=== PATIENT | male | born 1950 | race Caucasian/White ===

== ENCOUNTER 2016-12-07 00:46 | Inpatient (IN) ==
[2016-12-07] MEDS ORDERED: Ondansetron 4 MG/2 ML VIAL IVP PRN (03:44)
[2016-12-07] MEDS ORDERED: Naloxone 0.4 MG/ML INJ IVP PRN (03:44)
[2016-12-07] MEDS ORDERED: Nitroglycerin 0.4 MG TAB.SUBL SL PRN (03:47)
[2016-12-07] MEDS ORDERED: D5% in Water 1,000 ML IVC PRN ×2 (03:52→16:29)
[2016-12-07] MEDS ORDERED: *HR* Dextrose 50 % in Water (Syg) 50 ML SYRINGE IVP PRN (03:52)
[2016-12-07] MEDS ORDERED: Dextrose Gel 15 GM PO PRN ×2 (03:52)
--- NOTE | 2016-12-07 03:56 | Internal Med History&Physical ---
Date of Encounter: 12/07/16 Time of Encounter: 03:54 Assessment and Plan (1) Non-STEMI (non-ST elevated myocardial infarction) Current visit: Yes Status: Acute Aspirin, nitroglycerin, heparin drip, start metoprolol and Lipitor Check lipid panel, monitor troponins, telemetry Cartilage a consult to consider cardiac catheterization Nothing by mouth Check EKG and chest x-ray IV fluids Protonix IV for GI prophylaxis and heparin drip for DVT prophylaxis. She will be admitted as inpatient, expected to stay more than 2 midnights. Full code. Time spent on this admission 40 minutes. 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 Medina is a 65 year old male with a past medical history of CAD status post stents, hypertension, diabetes [id number], who was transferred from [facility] complaining of midsternal burning that started intermittently 2 days ago. Patient said that discomfort was described as 9 out of 10 in intensity which was worse upon exertion, improved after receiving nitroglycerin in/drip aspirin and Protonix. He does complain of some dizziness and headaches as well. Was started on a heparin drip as his troponin was 1.18. EKG is not available in the paperwork that was sent. At the moment the patient is not complaining of any discomfort, denies any other symptoms Past Med Surg Social Fam HX - Past Medical History Medical history: coronary artery disease (Status post stents), diabetes (Not oxygen dependent), hypertension, myocardial infarction, other Psychiatric history: anxiety, depression - Past Surgical History Surgical History: other (Cervical fusion, spine surgery, cardiac catheterization ) - Social History Smoking Status: Never smoker Smokeless Tobacco Status: Yes (skoal occasionally) Alcohol use: none Drug use: none - Family History Mother Name: Ashley Living Status: Age at : 90 Hx Family Endocrine Disorder: Yes (Diabetes) Father Age at : 93 Cause of : Prostate CA - Additional Family History Additional family history: Father with prostate cancer Internal Medicine - H&P: Meds Calcium Carbonate/Vitamin D3 [Calcium 600-Vit D3 800 Tab] 1 tab PO DAILY [History] Ibuprofen 800 mg PO Q8H PRN 12/07/16 [History] Lisinopril [Zestril] 5 mg PO DAILY 12/07/16 [History] metFORMIN [Glucophage] 1,000 mg PO BIDWM 12/07/16 [History] Allergies albuterol Adverse Reaction (Verified 08/13/16 20:42) See Comments All Systems PM: A 10-system review of systems was performed and is negative for pertinent findings except as documented above in the HPI. Review of systems: Other systems out of the 10 reviewed were negative - Constitutional Vitals: Temp Pulse Resp BP Pulse Ox 98.3 F 82 16 138/90 96 12/07/16 01:49 12/07/16 01:49 12/07/16 01:49 12/07/16 01:49 12/07/16 01:49 General appearance: Present: A&O X 3 - Head Head exam: Present: atraumatic, normocephalic - Eye Eye exam: Present: PERRL, conjuntiva pink, sclera anicteric Pupils: Present: PERRL - Neck Neck exam general surgery: Present: supple, trachea midline. Absent: lymphadenopathy - Respiratory Respiratory exam: Present: CTAB. Absent: accessory muscle use, rales, rhonchi, wheezes - Cardiovascular Cardiovascular exam: Present: RRR, +S1, +S2. Absent: diastolic murmur, gallop, rubs, systolic murmur - GI/Abdominal GI/Abdominal exam: Present: normal bowel sounds, soft, no peritoneal signs. Absent: distended, tenderness - Extremities Exam Extremities exam: Present: warm, radial pulses palpable and symetrical. Absent : calf tenderness, cyanotic, pedal edema - Neurological Exam Neurological exam: Present: CN II-XII intact, oriented X3, no focal deficits. Absent: pronater drift, facial droop, speech deficit - Skin Skin exam: Present: dry, intact Internal Med - H&P Results - Labs Labs: White blood cell count 8.3 hemoglobin 15.3 platelets 286 sodium 138 potassium 3.9 chloride 100 CO2 28 BUN 8 creatinine 0.8 glucose 259 troponin 1.18 INR 1.04
[2016-12-07 04:53] LABS: Basophils % 0.4 %; Eosinophils # 0.2 K/mcL (0.0-0.6); Eosinophils % 2.3 %; Hematocrit 37.5 % (37.5-50.1); Hemoglobin 13.3 g/dL (12.9-16.9); Immature Granulocytes % 0.3 % (0-4); Lymphocytes % 29.7 %; Mean Corpuscular HGB Conc 35.5 g/dL (31.6-35.5); Mean Corpuscular Hemoglobin 30.8 pg (28.0-33.3); Mean Corpuscular Volume 86.8 fL (83.0-100.0); Mean Platelet Volume 9.3 fL (9.4-12.4); Monocytes # 0.8 K/mcL (0.0-1.3); Monocytes % 11.5 %; Neutrophils # 3.8 K/mcL (1.6-8.9); Platelet Count 226 K/mcL (140-400); Red Blood Count 4.32 M/mcL (4.19-5.50); Segmented Neutrophils % 55.8 %
[2016-12-07 05:00] LABS: INR 1.2
[2016-12-07 05:03] LABS: Activated Partial Thrombo Time 32.5 Seconds (26.0-36.0)
[2016-12-07 05:20] LABS: BUN/Creatinine Ratio 13 (6-26); Blood Urea Nitrogen 10 mg/dL (8-26); Calcium 8.9 mg/dL (8.6-10.8); Carbon Dioxide 25 mEq/L (19-29); Chloride 100 mEq/L (98-109); Chol/HDL Ratio 6.9 (0-4.9); Cholesterol 144 mg/dL (< 200); Glucose 216 mg/dL (70-99); HDL Cholesterol 21 mg/dL (40-59); LDL Cholesterol,Calculated 97 mg/dL (0-99); Osmolality,Calculated 286 (280-300); Potassium 3.3 mEq/L (3.5-4.5); Sodium 135 mEq/L (136-145); Triglycerides 128 mg/dL (< 150); eGFR For African Americans > 60 (> 60); eGFR For Non-African Americans > 60 (> 60)
[2016-12-07] MEDS ORDERED: Nitroglycerin 1,000 MCG/10 ML VIAL IV SCH (06:15)
[2016-12-07] MEDS: Heparin 25,000 UNIT/500 ML D5W 25,000 UNIT/500 ML MLS IVC SCH (06:41)
[2016-12-07] MEDS: *HR* Heparin 5,000 UNIT/ML VIAL IVP PRN ×2 (07:35→19:59)
[2016-12-07] MEDS: 0.9 % Sodium Chloride 1,000 ML IVC SCH (07:38)
--- NOTE | 2016-12-07 08:43 | Cardiology Consult Note ---
Date of Encounter: 12/07/16 Time of Encounter: 08:00 Assessment and Plan (1) Non-STEMI (non-ST elevated myocardial infarction) Current Visit: Yes Status: Acute Initial troponin 1.18 at [facility], now 2.50. Non-specific ECG changes noted; he is pain free upon exam. Hx of CAD s/p PCI, most recent in 2011. Recommend [facility] with possible PCI; alternatives, risks, and benefits discussed. He is agreeable to proceed. Check echocardiogram. Given 324 mg ASA at [facility], started on Heparin gtt. Nitroglycerin on standby. Continue statin and betablocker. Will decrease asa to 81 mg. Further recommendations to follow. (2) Hypertension Current Visit: Yes Status: Chronic Betablocker added this AM, continue to monitor BP and adjust medications accordingly. Qualifiers: Hypertension type: essential hypertension Qualified Code(s): I10 - Essential (primary) hypertension (3) Hyperlipidemia Current Visit: Yes Status: Chronic Agree with statin; risk factor modification. Qualifiers: Hyperlipidemia type: pure hypercholesterolemia Qualified Code(s): E78.00 - Pure hypercholesterolemia, unspecified; E78.0 - Pure hypercholesterolemia Discussion w patient/family: The assessment and plan as outlined above was discussed with the patient and/or family members who expressed understanding and agreement. All questions were answered. Thank you for involving us in the care of your patient. Please call with any questions. The patient will be discussed and reviewed with Dr. Escobar; changes to be made accordingly. History of Present Illness Consult date: 12/07/16 Requesting physician: Meek Segovia Consult reason: NSTEMI Chief complaint: Chest pain History of present illness: Mr. Medina is a 65 year old male with PMH significant for CAD s/p PCI, HTN, HLD, and DMII who presented to [facility] ED yesterday evening around 10PM due to worsening chest burning. Patient states pain is non-radiating has been "steady" over the past week. Discomfort worsens with exertion/stress and improves with rest. Associated symptoms include dizziness, shortness of breath, and fatigue. Discomfort is different than prior LA. Initial troponin at [facility] ED was 1.18, he was then transferred to [facility]. He has not followed up with Cardiology in years. Prior CV testing includes: TTE 10/10/11: LVEF 65%, RV is moderately dilated with normal function, trivial /trace TR, all wall segments showed normal motion [facility] 10/10/11: severe single vessel CAD s/p PCI to ISR of ramus intermedius; otherwise mild, non-obstructive CAD. 30-40% stenosis pLAD, 30% pLCX, 40% pRCA. Past Med Surg Social Fam HX - Past Medical History Attestation: Yes The following information was validated with the patient. Source: patient, old records reviewed Medical history: coronary artery disease (Status post stents), diabetes (Not oxygen dependent), hyperlipidemia, hypertension, myocardial infarction Psychiatric history: anxiety, depression - Past Surgical History Surgical History: angioplasty/stent, other (Cervical fusion, spine surgery, cardiac catheterization) - Social History Smoking Status: Never smoker Smokeless Tobacco Status: Yes (skoal occasionally) Alcohol use: rarely Drug use: none - Family History Mother Name: Ashley Living Status: Age at : 90 Hx Family Endocrine Disorder: Yes (Diabetes) Father Age at : 93 Cause of : Prostate CA Medications and Allergies Calcium Carbonate/Vitamin D3 [Calcium 600-Vit D3 800 Tab] 1 tab PO DAILY [History] Duloxetine HCl [Cymbalta] 60 mg PO DAILY 12/07/16 [History] Ibuprofen 800 mg PO Q8H PRN 12/07/16 [History] Lisinopril [Zestril] 5 mg PO DAILY 12/07/16 [History] metFORMIN [Glucophage] 1,000 mg PO BIDWM 12/07/16 [History] Allergies albuterol Adverse Reaction (Verified 12/07/16 09:13) See Comments HIVES, SWELLING All Systems Review: A 10-system review of systems was performed and is negative for pertinent findings except as documented above in the HPI. - Cardiovascular Cardiovascular: as per HPI Physical Examination Vital Signs, Last 4 Hours Temp Pulse Resp BP 12/07/16 07:30 98.4 F 78 16 131/82 General: Conversant, No Apparent Distress HEENT: Atraumatic, Normocephaly, Mucus Membranes Moist Cardiac: Reg Rate and Rhythm, Normal S1 and S2 Lungs: Normal Breath Sounds, No Wheeze, Rales, Rhonchi Neuro: Alert and responsive, No focal deficits noted Abdomen: Soft, Non-Tender Skin: No rashes noted on visualized skin Musculoskeletal: No Chest Wall Tenderness Extremities: No Edema, Normal Pulses Results 12/07/16 04:27 12/07/16 04:27 Lab Results 12/07/16 12/07/16 12/07/16 04:27 04:27 04:27 WBC Hgb Hct Plt Count INR 1.2 APTT 32.5 Sodium 135 L Potassium 3.3 L Chloride 100 Carbon Dioxide 25 BUN 10 Creatinine 0.78 Glucose 216 H Calcium 8.9 Troponin I 2.50 H* 12/07/16 04:27 WBC 6.9 Hgb 13.3 Hct 37.5 Plt Count 226 INR APTT Sodium Potassium Chloride Carbon Dioxide BUN Creatinine Glucose Calcium Troponin I - Imaging and Cardiology Echo: pending, report reviewed Cardiac cath: report reviewed Other Results: tele: avg HR=82 SR, occasional PVC. - EKG Interpretation EKG results cardiology: personally reviewed Consult Discharge Plan - Plan Referrals: Declan Vick DO [Primary Care Provider] -
[2016-12-07] MEDS ORDERED: Pantoprazole 40 MG VIAL IVP SCH (09:00)
[2016-12-07] MEDS ORDERED: Aspirin 325 MG TABLET PO SCH (09:00)
--- NOTE | 2016-12-07 09:39 | Event Note ---
<Jack Lopez - Last Filed: 12/07/16 09:36> Date of Encounter: 12/07/16 Time of Encounter: 09:36 Patient seen and examined. Patient is chest pain-free at this time. Report burning in his chest prior to arrival which is similar to the discomfort he had the last time he had a stent placed. Denies any current shortness of breath, diaphoresis, nausea, vomiting, or shortness swelling. Vital signs stable Heart regular rate and rhythm, no murmurs, rubs, gallops Lungs clear to auscultation bilaterally No lower extremity edema appreciated. A/P: NSTEMI: Troponin elevated and rising, was 1.2 at outside hospital, increased to 2.5 this morning. EKG shows nonspecific ST changes, no clear sign of ischemia. Patient is chest pain-free at this time. Nitro drip has been discontinued. Heparin drip will be continued. Aspirin, statin, beta brando continued. Cardiology consult, likely C today. Hypokalemia: Replete via IV Potassium. <Dawson Gao - Last Filed: 12/07/16 18:59> Date of Encounter: 12/07/16 Pt admitted early this AM with acute NSTEMI. At this time he is pain free. Plan for cath per cardiology.
[2016-12-07] MEDS: Aspirin 81 MG TAB.CHEW PO SCH (09:55)
[2016-12-07] MEDS: Insulin LISPRO 300 UNITS/3 ML VIAL SQ SCH ×4 (09:55→20:05)
[2016-12-07] MEDS ORDERED: Heparin 1,000 UNITS/500 mL NS 500 ML ONE (12:54)
[2016-12-07] MEDS ORDERED: 0.9 % Sodium Chloride 1,000 ML ONE ×2 (12:54→13:35)
[2016-12-07] MEDS ORDERED: Nitroglycerin 1,000 MCG/10 ML VIAL IV ONE (12:55)
[2016-12-07] MEDS ORDERED: *HR* Heparin 10,000 UNIT/10 ML VIAL ONE (12:55)
--- NOTE | 2016-12-07 13:22 | Pre-Sedation Evaluation ---
Pre-sedation evaluation - Pre-sedation checklist Date of procedure: 12/07/16 Procedure: [place] Recent Vitals: Last Vital Signs Temp 98.6 F 12/07/16 11:21 Pulse 69 12/07/16 11:21 Resp 16 12/07/16 11:21 BP 121/75 12/07/16 11:21 Pulse Ox 90 12/07/16 04:00 H&P (including ROS) documented in medical record: Yes Previous reaction to sedatives/anesthetics: No Dietary Status: NPO after Midnight Airway Assessment: Patient can open mouth completely, TMJ function normal, Micrognathia (under-bite, receding chin) absent, Neck with adequate range of motion Dentition: No loose teeth or bridges Possible difficult airway: No ASA Classification *see protocol: CLASS II-Mild systemic disease Plan of Care: Pt appropriate candidate for procedure/moderate/conscious sedation , Risks/benefits of procedure/sedation discussed w/ patient/family
[2016-12-07] MEDS ORDERED: *HR* Midazolam HCl 2 MG/2 ML VIAL ONE (13:34)
[2016-12-07] MEDS ORDERED: *HR* FentaNYL (PF) 100 MCG/2 ML VIAL ONE (13:35)
--- NOTE | 2016-12-07 14:30 | Cardiothoracic Consult Note ---
Date of Encounter: 12/07/16 Time of Encounter: 14:26 Assessment and Plan (1) Non-STEMI (non-ST elevated myocardial infarction) Current Visit: Yes Status: Acute The patient is a 65-year-old type II diabetic, hypertensive man with known CAD and hypercholesterolemia. He is undergone previous ramus stent placement and did well until approximately 1 week ago. That time he developed vague, exertional, nonradiating substernal chest pain and associated shortness of breath, dyspnea exertion, dizziness, fatigue. The patient was evaluated at [facility] last night and found to have elevated troponin I levels consistent with an acute NSTEMI. He underwent cardiac catheterization today was found to have severe 3 vessel CAD and an LVEF 60%. The patient has been recommended for CABG. I concur with this recommendation. The patient understands procedure, benefits, alternatives, and risk, and gives his informed consent. Dr. Giovany Kingston will be performing the CABG next week. The assessment and plan as outlined above was discussed with the patient and/or family members who expressed understanding and agreement. All questions were answered. - History of Present Illness Consult date: 12/07/16 Requesting physician: Kerri Machado Consult reason: CABG evaluation. Chief complaint: NSTEMI History of present illness: Mr. Medina is a 65 year old type II diabetic, hypertensive man with known CAD and hypercholesterolemia. The patient underwent previous ramus stent placement in 2011 and did well until the last several months. At that time he began feeling fatigue. During the last week he developed vague, nonradiating substernal chest pain associated shortness of breath, dyspnea on exertion, dizziness, and fatigue. The chest pain would worsen with activity and resolve somewhat with rest. He describes the pain as different than the pain he had with his previous HI. He was evaluated at [facility] last night and found to have elevated troponin I levels consistent with an acute NSTEMI he was treated medically and transferred [facility] for further care. The patient underwent a transthoracic echocardiogram this morning which was reportedly normal. The spoke with the manager printing and he quickly read the study , stating that he had normal left ventricular function and normal right ventricular size and function with mild pulmonary hypertension. The official report will follow. The patient underwent cardiac catheterization was found to have severe three-vessel CAD. In particular the patient has a 40% distal left main lesion, a 99% proximal LAD lesion, a 70% mid to distal LAD lesion, a 99% ramus in-stent restenosis, a 90% proximal OM1 lesion, a 40% mid RCA lesion, and a 99% mid to distal right AV lesion (small vessel). The patient has been recommended for CABG. Past Med Surg Social Fam HX - Past Medical History Medical history: coronary artery disease, diabetes (Not oxygen dependent), hyperlipidemia, hypertension, myocardial infarction Psychiatric history: anxiety, depression - Past Surgical History Surgical History: angioplasty/stent, other (Cervical fusion) - Social History Smoking Status: Never smoker Smokeless Tobacco Status: Yes (skoal occasionally) Alcohol use: rarely Drug use: none Occupational status: retired Current living situation: Home - Independent Activity Level: Independent ambulation Recent Out of Country Travel Within the Last 8 Weeks: No Exposure or Possible Exposure to Illness During Travel: No - Family History Mother Name: Ashley Living Status: Age at : 90 Hx Family Endocrine Disorder: Yes (Diabetes) Father Age at : 93 Cause of : Prostate CA Medications and Allergies Calcium Carbonate/Vitamin D3 [Calcium 600-Vit D3 800 Tab] 1 tab PO DAILY [History] Duloxetine HCl [Cymbalta] 60 mg PO DAILY 12/07/16 [History] Ibuprofen 800 mg PO Q8H PRN 12/07/16 [History] Lisinopril [Zestril] 5 mg PO DAILY 12/07/16 [History] metFORMIN [Glucophage] 1,000 mg PO BIDWM 12/07/16 [History] Allergies albuterol Adverse Reaction (Verified 12/07/16 09:13) See Comments HIVES, SWELLING All Systems Review: A 10-system review of systems was performed and is negative for pertinent findings except as documented above in the HPI. Physical Examination Vital Signs, Last 4 Hours Temp Pulse Resp BP 12/07/16 11:21 98.6 F 69 16 121/75 General: Conversant, No Apparent Distress HEENT: Atraumatic, Normocephaly, Trachea midline Neck: No JVD, Normal carotid pulses Cardiac: Reg Rate and Rhythm, Normal S1 and S2, No Murmur Lungs: Normal Breath Sounds, No Wheeze, Rales, Rhonchi Neuro: Alert and responsive, No focal deficits noted, Motor nerves intact, Sensory nerves intact Vascular: Normal capillary refill Abdomen: Soft, Non-tender Skin: No rashes noted on visualized skin Musculoskeletal: No Chest Wall Tenderness Extremities: No Clubbing, No Cyanosis, No Edema Results 12/07/16 04:27 12/07/16 04:27 Lab Results, Last 24 hours 12/07/16 12/07/16 12/07/16 04:27 04:27 04:27 WBC Hgb Hct Plt Count INR 1.2 APTT 32.5 Sodium 135 L Potassium 3.3 L Chloride 100 Carbon Dioxide 25 BUN 10 Creatinine 0.78 Glucose 216 H Calcium 8.9 Troponin I 2.50 H* 12/07/16 12/07/16 04:27 09:50 WBC 6.9 Hgb 13.3 Hct 37.5 Plt Count 226 INR APTT Sodium Potassium Chloride Carbon Dioxide BUN Creatinine Glucose Calcium Troponin I 2.22 H* - Imaging Chest Xray: image reviewed (Normal cardiac size. No active pulmonary disease.) Consult Discharge Plan - Plan Referrals: Declan Vick DO [Primary Care Provider] -
--- NOTE | 2016-12-07 14:36 | Invasive Diagnostic Lab Proc ---
Name: Rogelio Medina Date of Study: 12/07/2016 Date: 1950 Ht: 66.9in Medical Record#: [id number] Age: 65 Wt: 184.09lb Gender: Male BSA: 1.95 Order #: [id number] BMI: 28.89 Physicians Procedure Physician: Kerri Machado MD, [facility] Referring MD: Referring MD: Staff Name Position Time In Gricelda Wilkinson RN Retail Merchandiser 01:31 PM Juan Antonio Calixto RT (R) Monitor 01:31 PM Paige Calixto RT (R) Scrub 01:31 PM Indications Indication Non-Stemi Procedures Performed Procedure L HRT ARTERY/VENTRICLE ANGIO Pre-Procedure Checklist Informed consent is complete signed and on chart. H\\T\\P is on chart. ID band is on and ID verified with patient. Patient NPO for procedure The procedure was described for the patient and questions were answered. Blood Pressure: 121/75 ECG is on chart. Rhythm: NSR Plan of Care Patient will tolerate the procedure without complications. Adequate level of comfort will be maintained. Hemodynamics will remain stable Patient will recover from procedure without complications. Respiratory function will be maintained. Cardiac rhythm will remain stable. Patient temperature will be maintained. Patient and/or family have verbalized understanding of the procedure. Patient Education Chief Complaint/Reason for Test: Cardiac Cath Developmental Category: Adult (18-64 years) Developmentally Appropriate for Age: Yes Learning Barriers: None Education Needs: Procedure Education Method: Verbal Information Taught: Cardiac Cath Educational Evaluation: Able to repeat information Intravenous Access Time IV Size Location DC'd Fluid/Drip Rate Units RN 01:42 PM 20g 1 07/04" Patent On Arrival Lt Arm 0.9NaCl 25 ml/hr Gricelda Wilkinson RN Allergies albuterol Vital Signs Time BP (mmHg) HR (bpm) O2 Sat. RR (bpm) LOC 01:32 PM 121 / 75 69 90 % 16 01:32 PM / % 4 = Oriented but drowsy 01:47 PM / % 4 = Oriented but drowsy 01:40 PM 120 / 62 62 96 % 01:45 PM 103 / 58 63 97 % 15 01:50 PM 110 / 67 65 99 % 12 01:55 PM 105 / 57 62 99 % 13 02:00 PM 106 / 67 78 99 % 4 02:05 PM 114 / 69 75 99 % 21 02:10 PM 122 / 66 68 99 % 16 02:15 PM 109 / 66 68 99 % 0 02:02 PM / % 4 = Oriented but drowsy Procedural Medications Time Medication Dose Units Method Given By 01:41 PM Versed 2 mg Intravenous Gricelda Wilkinson RN 01:41 PM Fentanyl 50 mcg Intravenous Gricelda Wilkinson RN 01:53 PM Lidocaine 2% 12 ml Subcutaneous Kerri Machado MD, [facility] ASA Classification: CLASS II- Mild systemic disease (i.e. well-controlled diabetes, hypertension, asthma, cigarette smoking) [place] Score Preprocedure Postprocedure Activity 2- Moves 4 extremities sustained head lift Activity 2- Moves 4 extremities sustained head lift Circulation 2- SBP +/= 20 points of pre-anesthetic level Circulation 2- SBP +/= 20 points of pre-anesthetic level Consciousness 2- Awake and alert oriented x 3 Consciousness 2- Awake and alert oriented x 3 O2 Saturation 2- Able to maintain O2 satruation of 92% on room air O2 Saturation 2- Able to maintain O2 satruation of 92% on room air Respiratory 2- Able to deep breathe and cough well Respiratory 2- Able to deep breathe and cough well Total Score 10 Total Score 10 Contrast Agent: Isovue Diagnostic Contrast: 68 ml Total Contrast: 68 ml Fluoro Dose: 240 mGy Procedure Log Time Note Enter By 01:31 PM Pt arrived to slab stripper 2 at 13:31 :31 PM Gricelda Wilkinson RN Position: Retail Merchandiser Time in: 13:31 :31 PM Juan Antonio Calixto RT (R) Position: Monitor Time in: 13:31 :31 PM Paige Calixto RT (R) Position: Scrub Time in: 13:31 :31 PM Patient charges- Angio tray pack, Navilyst 3mm J, Pulse Oximetry and ACIST tubing and transducer :32 PM Case Delayed No :32 PM Time: 13:32 Patient comfortable and pain free: Yes :32 PM Time: 13:32LOC: 5 = Fully awake and oriented or at pre-proc level 01:32 PM CathStat 01:33 PM Physician arrived 13:33 :33 PM ASA Class CLASS II- Mild systemic disease (i.e. well-controlled diabetes, hypertension, asthma, cigarette smoking) [email or web address] 01:33 PM Meet and greet completed [email or web address] 01:34 PM Sign in performed according to hospital policy. [email or web address] 01:36 PM Heparin was off in room at pickup [email or web address] 01:39 PM Vitals capture started with the following parameters, Patient=Adult, Interval=5 min, Initial Qrbhqssf=131 mmHg, Deflation Rate=5 mmHg, Cuff placed on Left Leg 01:40 PM HR=62 bpm, SWUE=477/62 mmhg, SpO2=96.0 %, Sal[place]=10 01:41 PM Time: 13:41 Versed 2 mg Intravenous Given by Gricelda Wilkinson RN ilson 01:42 PM Time: 13:41 Fentanyl 50 mcg Intravenous Given by Gricelda Wilkinson RN 01:45 PM HR=63 bpm, QOIS=462/58 mmhg, SpO2=97.0 %, Resp=15 B/min 01:47 PM Time: 13:32LOC: 4 = Oriented but drowsy [email or web address] 01:47 PM Time: 13:32 Patient comfortable and pain free: Yes [email or web address] 01:48 PM Procedure start 13:48 2 01:49 PM Clinical Presentation: Non-STEMI [email or web address] 01:50 PM HR=65 bpm, BPBY=723/67 mmhg, SpO2=99.0 %, Resp=12 B/min 01:50 PM Time out performed according to hospital policy [email or web address] 01:50 PM Pressure channel 1 zero failed. 01:50 PM Pressure channel 1 zeroed. 01:54 PM Time: 13:53 12 ml Lidocaine 2% to right groin Subcutaneous Given by Kerri Machado MD, [facility] ilson 01:54 PM Access obtained by percutaneous puncture. 5Fr 10cm Terumo [place] sheath placed in right Femoral artery. [id number] [email or web address] 01:54 PM 0.035 145cm Navilyst 3mmJ wire [id number] [email or web address] 01:54 PM 5Fr FL 4 catheter inserted over the wire [facility] 01:55 PM HR=62 bpm, CAGH=675/57 mmhg, SpO2=99.0 %, Resp=13 B/min 01:55 PM LCA angiography performed in multiple views. 01:55 PM Recorded Pressure: Ao, HR=62, Condition=Condition 1 (Aorta) Ao 93/63/77 01:56 PM Recorded Pressure: Ao, HR=62, Condition=Condition 1 (Aorta) Ao 93/58/74 01:57 PM Catheter removed 01:57 PM 5Fr FR 4 catheter inserted over the wire [facility] 01:57 PM RCA angiography performed in multiple views. 01:58 PM Recorded Pressure: Ao, HR=62, Condition=Condition 1 (Aorta) Ao 94/66/80 01:58 PM Coronary Dominance: right [email or web address] 01:59 PM Catheter removed 01:59 PM 5Fr Pigtail catheter inserted over the wire [facility] 01:59 PM Catheter selectively placed in left ventricle [email or web address] 02:00 PM HR=78 bpm, HUPQ=316/67 mmhg, SpO2=99.0 %, Resp=4 B/min 02:00 PM Pressure channel 1 zeroed. 02:00 PM Recorded Pressure: LV, HR=81, Condition=Condition 1 (Left Ventricle) LV 74/14/16 02:01 PM Bolus angiogram of left Ventricle complete: 8 ml/sec for a total of 24 mls 2 02:01 PM Recorded Pressure: LV, Ao, HR=80, Condition=Condition 1 (Left Ventricle) LV 77/16/11, (Aorta) Ao 98/41/68 02:01 PM Physician reviewing films 02:01 PM Catheter removed 02:02 PM Time: 13:47 Patient comfortable and pain free: Yes 2 02:02 PM Time: 13:47LOC: 4 = Oriented but drowsy [email or web address] 02:04 PM Physician consulting with Dr. Coffman 02:05 PM HR=75 bpm, INUK=904/69 mmhg, SpO2=99.0 %, Resp=21 B/min 02:09 PM Bolus angiogram of right Femoral complete: 4 ml/sec for a total of 7 mls [email or web address] 02:09 PM Procedure completed at 14:09 [email or web address] 02:09 PM Isovue 370 - 200ml,1 Bottle(s) used. [email or web address] 02:10 PM HR=68 bpm, EZTQ=559/66 mmhg, SpO2=99.0 %, Resp=30 B/min 02:10 PM Post ECG NSR [email or web address] 02:10 PM Post Blood Pressure 122/66 [email or web address] 02:11 PM Information taught Cardiac Cath and Mynx [email or web address] 02:11 PM Education needs Procedure, Plan of Care, and Disease Process [email or web address] 02:11 PM Learning barriers :Sedated [email or web address] 02:11 PM Education Methods Verbal [email or web address] 02:11 PM Education evaluation Needs further instruction [email or web address] 02:11 PM Arterial sheath pulled, Mynx closure device used and was Successful [id number] S/N. bw 02:13 PM Sign out completed: Radiation Dose 240.24 mGy Fluoro Time: 1.0 Isovue 370 - 200ml contrast 67.8 ml given by Kerri Machado MD, FACC. Complications: NoneCardiac Rehab Consult needed: NoConfirmed administered medications: No [email or web address] 02:13 PM Family placed in consult room. [email or web address] 02:13 PM Complications: None bw 02:14 PM Fluoro Time: 1 [email or web address] 02:14 PM Isovue 370 - 200ml contrast 67.8 ml given by Kerri Machado MD, FACC. [email or web address] 02:14 PM Radiation Dose 240.24 mGy [email or web address] 02:14 PM Site status No bleeding/hematoma - Rt Groin as reported by Paige Calixto RT (R) at 14:14 [email or web address] 02:14 PM Opsite applied bw 02:15 PM 14:15 Post Pulses Bilateral DP \\T\\ PT 2+ [email or web address] 02:15 PM HR=68 bpm, XAIM=178/66 mmhg, SpO2=99.0 %, Resp=0 B/min 02:18 PM Time: 14:02LOC: 4 = Oriented but drowsy [email or web address] 02:18 PM Time: 14:02 Patient comfortable and pain free: Yes [email or web address] 02:18 PM Delay to floor No [email or web address] 02:19 PM Lesion found in Proximal RCA. Pre Stenosis: 40 Pre WALTER Flow: [email or web address] 02:19 PM Lesion found in Mid RCA. Pre Stenosis: 40 Pre WALTER Flow: [email or web address] 02:19 PM Lesion found in RPAV. Pre Stenosis: 99 Pre WALTER Flow: [email or web address] 02:19 PM Lesion found in LMCA. Pre Stenosis: 40 Pre WALTER Flow: [email or web address] 02:20 PM Lesion found in Proximal LAD. Pre Stenosis: 99 Pre WALTER Flow: [email or web address] 02:20 PM Lesion found in Mid LAD. Pre Stenosis: 30 Pre WALTER Flow: [email or web address] 02:20 PM Lesion found in Distal LAD. Pre Stenosis: 70 Pre WALTER Flow: [email or web address] 02:20 PM Lesion found in Proximal Circumflex. Pre Stenosis: 40 Pre WALTER Flow: [email or web address] 02:20 PM Lesion found in Mid Circumflex. Pre Stenosis: 30 Pre WALTER Flow: [email or web address] 02:21 PM Lesion found in 1st Marginal. Pre Stenosis: 99 Pre WALTER Flow: [email or web address] 02:21 PM Lesion found in Right PDA. Pre Stenosis: 30 Pre WALTER Flow: [email or web address] 02:21 PM Lesion found in Ramus. Pre Stenosis: 99 Pre WALTER Flow: [email or web address] 02:21 PM Left Main Coronary Artery with 40% stenosis [email or web address] 02:21 PM Right Coronary, Right Posterior Descending Arteries with Right Posterolateral and Acute Marginal branches with 40 % stenosis. If graft is supplying this area, 0 % stenosis [email or web address] 02:21 PM Proximal Left Anterior Descending Coronary Artery with 99% stenosis. If graft is supplying this territory, 0 % stenosis. [email or web address] 02:22 PM Mid/Distal Left Anterior Descending Coronary Artery and diagonal branches with 70% stenosis. If graft is supplying this area, 0 % stenosis [email or web address] 02:22 PM Circumflex, Obtuse Marginal, Left Posterior Descending, and Left Posterolateral Coronary Arteries with 99 % stenosis. If graft is supplying this area, 0 % stenosis [email or web address] 02:22 PM Ramus with 99% stenosis. If graft is supplying this area, 0 % stenosis [email or web address] 02:28 PM Report given to irasema CASPER Pt taken to E Room #34. 14:28 [email or web address] Complications Complication None None Hemodynamics Pressures Site Systolic/A Wave Diastolic/V Wave Mean AO 93 63 77 AO 93 58 74 AO 94 66 80 LV 74 14 16 LV 77 16 11 AO 98 41 68 Post Procedure Information Blood Pressure: 122/66 mmHg Rhythm: NSR Post procedural instructions were given Surgery consult for CABG Closure Device Time Device Success/Fail 12/07/2016 2:11:00 PM MynxGrip Successful Site Checks Time Location Status Staff Sheath In? Note 02:14 PM Rt Groin No bleeding/hematoma Paige Calixto RT (R) Pulses Time Site Pre-Procedure Post-Procedure Note 12/07/2016 1:33:00 PM Bilateral DP \\T\\ PT 2+ 12/07/2016 1:33:00 PM Bilateral radial 2+ 2:15:00 PM Bilateral DP \\T\\ PT 2+ Updated by Juan Antonio Calixto RT (R) on 12/07/2016 2:28:44 PM Juan Antonio Calixto RT electronically signed on 12/07/2016 2:29:57 PM with status of Final
[2016-12-07] MEDS: Isosorbide MONOnitrate (24 HR) 30 MG TAB.ER.24H PO SCH (16:14)
--- NOTE | 2016-12-07 17:13 | Invasive Diagnostic Lab ---
Name: Rogelio Medina Date of Study: 12/07/2016 Date: 1950 Ht: 170.0 cm /66.9 in Medical Record#: [id number] Age: 65 Wt: 83.5 kg / 184.09 lb Account/Order#: [id number] Gender: Male BSA: 1.95 Order #: [id number] Fluoro Dose: 240 mGy BMI: 28.89 Procedure Physician: Kerri Machado MD, FACC Referring MD: Referring MD: Procedures Performed: LEFT HEART CATH Indications: Non-Stemi Impressions: Triple vessel coronary artery disease. Severe instent restenosis of previously stented ramus. The left ventricle is normal and has normal contractility EF 65% Recommendations: Optimal medical therapy of patient's disease. Aggressive risk factor modification. Evaluate for coronary artery bypass surgery. History/Risk Factors: CAD with stents anxiety depression Diabetes Hypertension Dyslipidemia Procedure Access obtained in the right Femoral artery by percutaneous puncture Complications: None, None Contrast: Isovue 68ml Closure Device: MynxGrip Hemodynamics: Pressures Site Systolic/ A Wave Diastolic/ V Wave End Diastolic/ Mean HR AO 93 63 77 62 AO 93 58 74 62 AO 94 66 80 62 LV 74 14 16 81 LV 77 16 11 78 AO 98 41 68 80 LV Ventriculography Ejection Method: LV Gram Ejection Fraction: 65% Wall Motion: AYALA Anterobasal Normal Anterolateral Normal Apical: Normal Inferoapical Normal Inferobasal Normal Coronary Dominance: right Lesion Findings/Interventions * Left Main Coronary Artery There is a 50% stenosis in the LMCA. * Left Anterior Descending There is a 99% stenosis in the Proximal LAD. There is a 30% stenosis in the Mid LAD. There is a 70% stenosis in the Distal LAD. * Circumflex There is a 40% stenosis in the Proximal Circumflex. There is a 30% stenosis in the Mid Circumflex. There is a 99% stenosis in the 1st Marginal. * Ramus There is a 99% stenosis in stent re-stenosis in the Ramus. * Right Coronary Artery There is a 40% stenosis in the Proximal RCA. There is a 40% stenosis in the Mid RCA. There is a 30% stenosis in the Right PDA. There is a 99% stenosis in the RPAV (small vessel). Updated by Juan Antonio Calixto RT (R) on 12/07/2016 2:30:03 PM Kerri Machado MD, FACC electronically signed on 12/07/2016 5:07:51 PM with status of Final
[2016-12-08 02:53] LABS: BUN/Creatinine Ratio 13 (6-26); Blood Urea Nitrogen 11 mg/dL (8-26); Calcium 8.5 mg/dL (8.6-10.8); Carbon Dioxide 25 mEq/L (19-29); Chloride 104 mEq/L (98-109); Glucose 228 mg/dL (70-99); Osmolality,Calculated 293 (280-300); Potassium 3.9 mEq/L (3.5-4.5); Sodium 138 mEq/L (136-145); eGFR For African Americans > 60 (> 60); eGFR For Non-African Americans > 60 (> 60)
[2016-12-08] MEDS: 0.9 % Sodium Chloride 1,000 ML IVC SCH (02:55)
[2016-12-08] MEDS: *HR* Heparin 5,000 UNIT/ML VIAL IVP PRN ×2 (03:27→13:26)
[2016-12-08] MEDS: *HR* Morphine 2 MG/ML SYRINGE IVP PRN (03:37)
--- NOTE | 2016-12-08 09:08 | Internal Med Progress Note ---
Date of Encounter: 12/08/16 Time of Encounter: 08:29 - Assessment and plan (1) Non-STEMI (non-ST elevated myocardial infarction) Current Visit: Yes Status: Acute Assessment and plan: Pt now asymptomatic. Cardiac cath showed severe three vessel disease. Currently on heparin drip. Plan for CABG next week. (2) CAD (coronary artery disease) Current Visit: Yes Status: Acute Assessment and plan: Pt to have CABG next week. Continue heparin drip. Qualifiers: Coronary Disease-Associated Artery/Lesion type: [place] artery [place] vs. transplanted heart: [place] heart Associated angina: with stable angina Qualified Code(s): I25.118 - Atherosclerotic heart disease of [place] coronary artery with other forms of angina pectoris (3) Diabetes Current Visit: Yes Status: Chronic Assessment and plan: Monitoring blood sugar. Qualifiers: Diabetes mellitus type: type 2 Diabetes mellitus complication status: with circulatory complication Diabetes mellitus complication detail: with other circulatory complications Diabetes mellitus vermin exterminator insulin use: without vermin exterminator use Qualified Code(s): E11.59 - Type 2 diabetes mellitus with other circulatory complications (4) Hypertension Current Visit: Yes Status: Chronic Assessment and plan: Appears to be controlled at this time. Qualifiers: Hypertension type: essential hypertension Qualified Code(s): I10 - Essential (primary) hypertension (5) Hyperlipidemia Current Visit: Yes Status: Chronic Assessment and plan: Continue current management. Qualifiers: Hyperlipidemia type: pure hypercholesterolemia Qualified Code(s): E78.00 - Pure hypercholesterolemia, unspecified; E78.0 - Pure hypercholesterolemia - Subjective Interval history: Mr. Medina is currently admitted for acute NSTEMI with severe CAD. He is to have CABG. He remains moderate to high risk due to potential for worsening cardiac status. Mr. Medina is up in the chair. He denies chest pain. No dyspnea. Appetite OK. He wants to get up and walk around. Family at bedside and has no questions at this point. - Constitutional Vitals: Temp Pulse Resp BP Pulse Ox 98.6 F 72 18 113/74 95 12/08/16 06:47 12/08/16 06:47 12/08/16 06:47 12/08/16 06:47 12/08/16 06:47 General appearance: Present: A&O X 3, pleasant - Head Head exam: Present: normocephalic - Eye Eye exam: Present: EOMI, conjuntiva pink - ENT ENT exam: Present: mucous membranes moist - Respiratory Respiratory exam: Present: decreased breath sounds, rales Additional comments: Scant rales R base. - Cardiovascular Cardiovascular exam: Present: RRR. Absent: systolic murmur, tachycardia - GI/Abdominal GI/Abdominal exam: Present: soft. Absent: mass, tenderness - Extremities Exam Extremities exam: Present: warm. Absent: pedal edema - Neurological Exam Neurological exam: Present: alert, oriented X3 - Psychiatric Psychiatric exam: Present: normal affect, normal mood - Skin Skin exam: Present: warm. Absent: rash Internal Medicine: Result - Labs CBC & Chem 7: 12/07/16 04:27 12/08/16 02:22 Labs: BMP 12/08/16 02:22 Sodium 138 Potassium 3.9 Chloride 104 Carbon Dioxide 25 BUN 11 Creatinine 0.82 Glucose 228 H Calcium 8.5 L Cardiac Enzymes 12/07/16 Range/Units 09:50 Troponin I 2.22 H* (0-0.03) ng/mL - ABG Interpretation ABG results: PT/INR, D-dimer PT 13.0 Seconds (9.4-12.1) H 12/07/16 04:27 - Impressions Impressions Chest X-Ray 12/07/16 04:00 IMPRESSION: No active cardiopulmonary disease D/ / Sancho Rutherford MD / Sancho Rutherford MD Interpreting Provider: Sancho Rutherfodr MD Consult Discharge Plan - Plan Referrals: Declan Vick DO [Primary Care Provider] -
[2016-12-08] MEDS: Heparin 25,000 UNIT/500 ML D5W 25,000 UNIT/500 ML MLS IVC SCH (09:44)
[2016-12-08] MEDS: Aspirin 81 MG TAB.CHEW PO SCH (09:50)
[2016-12-08] MEDS: Isosorbide MONOnitrate (24 HR) 30 MG TAB.ER.24H PO SCH (09:51)
[2016-12-08] MEDS: Insulin LISPRO 300 UNITS/3 ML VIAL SQ SCH ×4 (09:53→20:34)
--- NOTE | 2016-12-08 10:12 | Cardiology Progress Note ---
Date of Encounter: 12/08/16 Time of Encounter: 09:30 Assessment and Plan (1) Non-STEMI (non-ST elevated myocardial infarction) Current Visit: Yes Status: Acute Peak troponin 2.50. Non-specific ECG changes noted; he is pain free upon exam. Hx of CAD s/p PCI, most recent in 2011. TTE 12/07/16: LVEF 60-65%, moderate LVDD mild moderately dilated LA, normal RV structure and function, mild PH, normal wall motion, trivial pericardial effusion [facility] 12/07/16: triple vessel CAD with severe ISR of previously stented ramus-- patient has been recommended to undergo CABG. Plan for CABG with Dr. Kingston early next week. He continues to be pain free; continue heparin gtt, asa, statin, and betablocker. NTG gtt prn. Cardiology will sign-off, please re-consult if needed. Will follow-up in the outpatient setting s/p bypass surgery. (2) Hypertension Current Visit: Yes Status: Chronic Betablocker added, continue to monitor BP and adjust medications accordingly. Qualifiers: Hypertension type: essential hypertension Qualified Code(s): I10 - Essential (primary) hypertension (3) Hyperlipidemia Current Visit: Yes Status: Chronic Agree with statin; risk factor modification. Qualifiers: Hyperlipidemia type: pure hypercholesterolemia Qualified Code(s): E78.00 - Pure hypercholesterolemia, unspecified; E78.0 - Pure hypercholesterolemia Discussion w patient/family: The assessment and plan as outlined above was discussed with the patient and/or family members who expressed understanding and agreement. All questions were answered. Thank you for involving us in the care of your patient. Please call with any questions. The patient was discussed and reviewed with Dr. Escobar; Cardiology will sign-off , follow-up in the outpatient setting. Please re-consult if needed, plan discussed with primary service. Subjective Principal diagnosis: NSTEMI--MVD Interval history: Seen and examined. Denies recurrent chest pain or discomfort since admission. No issues with right groin cath site. Plan for CABG early next week with Dr. Kingston. Objective Vital Signs, Last 4 Hours Temp Pulse Resp BP Pulse Ox 12/08/16 06:47 98.6 F 72 18 113/74 95 General: Conversant, No Apparent Distress HEENT: Atraumatic, Normocephaly, Mucus Membranes Moist Neck: No JVD, Normal carotid pulses Cardiac: Reg Rate and Rhythm, Normal S1 and S2, No Murmur Lungs: Normal Breath Sounds, No Wheeze, Rales, Rhonchi Neuro: Alert and responsive, No focal deficits noted Abdomen: Soft, Non-Tender Skin: No rashes noted on visualized skin Musculoskeletal: No Chest Wall Tenderness Extremities: No Clubbing, No Cyanosis, No Edema, Normal Pulses Results 12/07/16 04:27 12/08/16 02:22 Lab Results 12/07/16 12/07/16 12/08/16 09:50 19:08 02:22 APTT 26.3 Sodium 138 Potassium 3.9 Chloride 104 Carbon Dioxide 25 BUN 11 Creatinine 0.82 Glucose 228 H Calcium 8.5 L Troponin I 2.22 H* 12/08/16 12/08/16 02:22 09:45 APTT 45.4 H D 37.8 H Sodium Potassium Chloride Carbon Dioxide BUN Creatinine Glucose Calcium Troponin I - Imaging and Cardiology Echo: report reviewed Cardiac cath: report reviewed Other Results: 12 hour tele: avg HR=78 SR. Occasional PVC. No other events. - EKG Interpretation EKG results cardiology: personally reviewed Consult Discharge Plan - Plan Referrals: Declan Vick DO [Primary Care Provider] -
--- NOTE | 2016-12-08 11:23 | Cardiothoracic Progress Note ---
Date of Encounter: 12/08/16 Time of Encounter: 11:21 - Assessment and plan (1) Non-STEMI (non-ST elevated myocardial infarction) Current Visit: Yes Status: Acute The assessment and plan as outlined above was discussed with the patient and/or family members who expressed understanding and agreement. All questions were answered. The patient is a candidate for coronary artery bypass grafting. The distal LAD has diffuse disease and his small, but it could be grafted in the midportion. The distal right coronary artery is quite small and not graftable. The patient remains pain free and will be scheduled for the operating room early next week. - Subjective Interval history: The patient has been pain-free while in the hospital. Vital Signs, Last 4 Hours Temp Pulse Resp BP Pulse Ox 12/08/16 10:19 98.9 F 73 18 122/71 96 Clinical Data, last 8 Hours Output, Urine Amount 0 Weight 12/06/16 12/07/16 12/08/16 23:59 23:59 23:59 Weight 83.5 kg 84.5 kg Lungs are clear to percussion and auscultation. Heart is in a normal sinus rhythm. - Labs 12/07/16 04:27 12/08/16 02:22 Lab Results, Last 24 hours 12/07/16 12/08/16 12/08/16 19:08 02:22 02:22 APTT 26.3 45.4 H D Sodium 138 Potassium 3.9 Chloride 104 Carbon Dioxide 25 BUN 11 Creatinine 0.82 Glucose 228 H Calcium 8.5 L 12/08/16 09:45 APTT 37.8 H Sodium Potassium Chloride Carbon Dioxide BUN Creatinine Glucose Calcium Consult Discharge Plan - Plan Referrals: Declan Vick DO [Primary Care Provider] -
--- NOTE | 2016-12-08 13:48 | Carotid Imaging Report ---
Carotid Duplex Patient Name:Rogelio Medina Order Number:[id number] Procedure Date:12/07/2016 Date:1950ge:65 yrs Gender:Male Lt BP:130 / 75 mmHg Rt.BP:130 / 75 mmHgHeart Rate: Location:[facility] Room #: 2NE34 Professional Shopper:Ashly Adkins Referring MD:Jasmine Thibodeaux CNP cnc lathe machine operator:Declan Vick DO Reading MD:Rogelio Patten MD Primary Indications:CAD, pre-op CABG Risk Factors Yes/No Hypertension Hypercholesterolemia Diabetes Impressions: The bilateral carotid arteries have minimal plaque throughout. Findings Carotid Duplex: Right: There is nonstenotic plaque in the right distal common carotid artery. There is smooth heterogeneous plaque. There is nonstenotic plaque in the right bifurcation. There is smooth homogeneous plaque. There is nonstenotic plaque in the right proximal internal carotid artery. There is smooth homogeneous plaque. Left: There is nonstenotic plaque in the left proximal common carotid artery. There is smooth heterogeneous plaque. There is nonstenotic plaque in the left mid common carotid artery. There is irregular homogeneous plaque. There is nonstenotic plaque in the left distal common carotid artery. There is smooth homogeneous plaque. There is nonstenotic plaque in the left bifurcation. There is smooth homogeneous plaque. There is nonstenotic plaque in the left proximal internal carotid artery. There is smooth homogeneous plaque. Prior Study: No prior study available for comparison. Carotid Results Right PSV EDV Assessment Proximal CCA 113 11 Normal Mid CCA 107 15 Normal Distal CCA 113 16 Non Stenotic Plaque Bifurcation 102 15 Non Stenotic Plaque Proximal ICA 91 20 Non Stenotic Plaque Mid ICA 99 28 Normal Distal ICA 53 16 Normal ECA 156 0 Normal Vertebral Artery 36 11 Antegrade Flow Left PSV EDV Assessment Proximal CCA 87 13 Non Stenotic Plaque Mid CCA 139 20 Non Stenotic Plaque Distal CCA 173 29 Non Stenotic Plaque Bifurcation 187 27 Non Stenotic Plaque Proximal ICA 67 21 Non Stenotic Plaque Mid ICA 77 22 Normal Distal ICA 63 23 Normal ECA 97 0 Normal Vertebral Artery 36 0 Antegrade Flow Ratio's Right ICA/CCA Ratio: 0.93 ICA/CCA Values: 99/107 Left ICA/CCA Ratio: 0.55 ICA/CCA Values: 77/139 Updated by Rogelio Patten MD on 12/08/2016 1:40:49 PM electronically signed on 12/08/2016 1:42:05 PM with status of Final
[2016-12-09] MEDS: Heparin 25,000 UNIT/500 ML D5W 25,000 UNIT/500 ML MLS IVC SCH (00:05)
[2016-12-09 01:27] LABS: Hematocrit 34.9 % (37.5-50.1); Hemoglobin 11.9 g/dL (12.9-16.9); Mean Corpuscular HGB Conc 34.1 g/dL (31.6-35.5); Mean Corpuscular Hemoglobin 30.1 pg (28.0-33.3); Mean Corpuscular Volume 88.4 fL (83.0-100.0); Mean Platelet Volume 9.1 fL (9.4-12.4); Platelet Count 225 K/mcL (140-400); Red Blood Count 3.95 M/mcL (4.19-5.50); Red Cell Distribution Width 12.2 % (11.5-14.5)
[2016-12-09 01:31] LABS: BUN/Creatinine Ratio 20 (6-26); Blood Urea Nitrogen 16 mg/dL (8-26); Calcium 8.7 mg/dL (8.6-10.8); Carbon Dioxide 24 mEq/L (19-29); Chloride 103 mEq/L (98-109); Glucose 226 mg/dL (70-99); Magnesium 1.6 mg/dL (1.6-2.6); Osmolality,Calculated 292 (280-300); Potassium 3.9 mEq/L (3.5-4.5); Sodium 137 mEq/L (136-145); eGFR For African Americans > 60 (> 60); eGFR For Non-African Americans > 60 (> 60)
[2016-12-09] MEDS: Isosorbide MONOnitrate (24 HR) 30 MG TAB.ER.24H PO SCH (08:33)
[2016-12-09] MEDS: Aspirin 81 MG TAB.CHEW PO SCH (08:33)
[2016-12-09] MEDS: Insulin LISPRO 300 UNITS/3 ML VIAL SQ SCH ×4 (08:34→22:21)
--- NOTE | 2016-12-09 10:31 | Cardiothoracic Progress Note ---
Date of Encounter: 12/09/16 Time of Encounter: 10:29 - Assessment and plan (1) Non-STEMI (non-ST elevated myocardial infarction) Current Visit: Yes Status: Acute The patient is recuperating from his myocardial infarction. He did have a positive troponin when he was admitted. I will schedule him for open heart surgery on Saturday. Operative consent was obtained. Risks of surgery include , infection, stroke, bleeding, myocardial infarction, clots around the heart, renal or respiratory failure, acute or chronic graft closure, phrenic nerve injury and sternal dehiscence. The procedure, its risks, benefits and alternatives were explained and he wishes to proceed. He has no questions. - Subjective Interval history: The patient has had no chest pain on a heparin drip. Vital Signs, Last 4 Hours Temp Pulse Resp BP Pulse Ox 12/09/16 06:43 100 F H 85 16 132/75 96 Weight 12/07/16 12/08/16 12/09/16 23:59 23:59 23:59 Weight 83.5 kg 84.5 kg Lungs are clear to percussion and auscultation. Heart is in a normal sinus rhythm. - Labs 12/09/16 01:09 12/09/16 01:09 Lab Results, Last 24 hours 12/08/16 12/09/16 12/09/16 19:27 01:09 01:09 WBC 7.3 Hgb 11.9 L Hct 34.9 L Plt Count 225 APTT 67.9 H D Sodium 137 Potassium 3.9 Chloride 103 Carbon Dioxide 24 BUN 16 Creatinine 0.82 Glucose 226 H Calcium 8.7 Magnesium 1.6 12/09/16 01:09 WBC Hgb Hct Plt Count APTT 62.1 H Sodium Potassium Chloride Carbon Dioxide BUN Creatinine Glucose Calcium Magnesium Consult Discharge Plan - Plan Referrals: Declan Vick DO [Primary Care Provider] -
[2016-12-09] MEDS ORDERED: ceFAZolin 2,000 MG in D5% in Water 100 ML IVPB ONE (10:33)
[2016-12-09 11:37] LABS: Hemoglobin A1C 10.8 %
[2016-12-09 11:42] LABS: Chol/HDL Ratio 4.7 (0-4.9)
--- NOTE | 2016-12-09 18:05 | Internal Med Progress Note ---
Date of Encounter: 12/09/16 Time of Encounter: 16:00 - Assessment and plan (1) Non-STEMI (non-ST elevated myocardial infarction) Current Visit: Yes Status: Acute Assessment and plan: Pt now asymptomatic. Cardiac cath showed severe three vessel disease. Currently on heparin drip. Plan for CABG next week. (2) CAD (coronary artery disease) Current Visit: Yes Status: Acute Assessment and plan: Pt to have CABG next week. Continue heparin drip. Qualifiers: Coronary Disease-Associated Artery/Lesion type: [place] artery [place] vs. transplanted heart: [place] heart Associated angina: with stable angina Qualified Code(s): I25.118 - Atherosclerotic heart disease of [place] coronary artery with other forms of angina pectoris (3) Diabetes Current Visit: Yes Status: Chronic Assessment and plan: Monitoring blood sugar. Qualifiers: Diabetes mellitus type: type 2 Diabetes mellitus complication status: with circulatory complication Diabetes mellitus complication detail: with other circulatory complications Diabetes mellitus terminal computer operator insulin use: without terminal computer operator use Qualified Code(s): E11.59 - Type 2 diabetes mellitus with other circulatory complications (4) Hypertension Current Visit: Yes Status: Chronic Assessment and plan: Appears to be controlled at this time. Qualifiers: Hypertension type: essential hypertension Qualified Code(s): I10 - Essential (primary) hypertension (5) Hyperlipidemia Current Visit: Yes Status: Chronic Assessment and plan: Continue current management. Qualifiers: Hyperlipidemia type: pure hypercholesterolemia Qualified Code(s): E78.00 - Pure hypercholesterolemia, unspecified; E78.0 - Pure hypercholesterolemia - Subjective Interval history: Mr. Medina is currently admitted for acute NSTEMI with severe CAD. He is to have CABG. He remains moderate to high risk due to potential for worsening cardiac status. Mr. Medina is eating dinner. He is up in bed. No pain. No dyspnea. To have surgery Saturday. - Constitutional Vitals: Temp Pulse Resp BP Pulse Ox 98.9 F 75 16 111/64 97 12/09/16 15:56 12/09/16 15:56 12/09/16 15:56 12/09/16 15:56 12/09/16 15:56 General appearance: Present: A&O X 3, pleasant - Head Head exam: Present: normocephalic - Eye Eye exam: Present: conjuntiva pink - ENT ENT exam: Present: mucous membranes moist - Respiratory Respiratory exam: Present: decreased breath sounds. Absent: wheezes - Cardiovascular Cardiovascular exam: Present: RRR - GI/Abdominal GI/Abdominal exam: Present: soft. Absent: tenderness - Extremities Exam Extremities exam: Present: warm. Absent: tenderness - Neurological Exam Neurological exam: Present: alert, oriented X3 - Psychiatric Psychiatric exam: Present: normal affect, normal mood Internal Medicine: Result - Labs CBC & Chem 7: 12/09/16 01:09 12/09/16 01:09 Labs: Short CBC 12/09/16 Range/Units 01:09 WBC 7.3 (4.3-11.1) K/mcL Hgb 11.9 L (12.9-16.9) g/dL Hct 34.9 L (37.5-50.1) % Plt Count 225 (140-400) K/mcL BMP 12/09/16 01:09 Sodium 137 Potassium 3.9 Chloride 103 Carbon Dioxide 24 BUN 16 Creatinine 0.82 Glucose 226 H Calcium 8.7 - ABG Interpretation ABG results: PT/INR, D-dimer PT 13.0 Seconds (9.4-12.1) H 12/07/16 04:27 Consult Discharge Plan - Plan Referrals: Declan Vick DO [Primary Care Provider] -
[2016-12-09] MEDS: Chlorhexidine Rinse 15 ML MOUTHWASH MM SCH (22:20)
[2016-12-10] MEDS: Heparin 25,000 UNIT/500 ML D5W 25,000 UNIT/500 ML MLS IVC SCH (04:07)
[2016-12-10] MEDS: Acetaminophen 325 MG TABLET PO PRN (04:16)
[2016-12-10] MEDS: Aspirin 81 MG TAB.CHEW PO SCH (08:53)
[2016-12-10] MEDS: Insulin LISPRO 300 UNITS/3 ML VIAL SQ SCH ×6 (08:54→20:10)
[2016-12-10] MEDS: Isosorbide MONOnitrate (24 HR) 30 MG TAB.ER.24H PO SCH (08:54)
[2016-12-10] MEDS ORDERED: ceFAZolin 2,000 MG in D5% in Water 100 ML IVPB ONE (09:59)
[2016-12-10] MEDS ORDERED: MOM Conc 10 ML UD.LIQ PO PRN (10:00)
--- NOTE | 2016-12-10 11:49 | Internal Med Progress Note ---
Date of Encounter: 12/10/16 Time of Encounter: 10:00 - Assessment and plan (1) Diabetes Current Visit: Yes Status: Chronic Assessment and plan: Blood sugar remains elevated with HgbA1C of 10.6. Needs basal insulin. To go for CABG tomorrow. Qualifiers: Diabetes mellitus type: type 2 Diabetes mellitus complication status: with circulatory complication Diabetes mellitus complication detail: with other circulatory complications Diabetes mellitus terminal clerk insulin use: without skilled nursing use Qualified Code(s): E11.59 - Type 2 diabetes mellitus with other circulatory complications (2) Non-STEMI (non-ST elevated myocardial infarction) Current Visit: Yes Status: Acute Assessment and plan: Pt with no further chest pain or acute issues at this time. Plan for CABG tomorrow. (3) CAD (coronary artery disease) Current Visit: Yes Status: Acute Assessment and plan: Pt to have CABG tomorrow. Continue heparin drip. Qualifiers: Coronary Disease-Associated Artery/Lesion type: [place] artery [place] vs. transplanted heart: [place] heart Associated angina: with stable angina Qualified Code(s): I25.118 - Atherosclerotic heart disease of [place] coronary artery with other forms of angina pectoris (4) Hypertension Current Visit: Yes Status: Chronic Assessment and plan: Appears to be controlled at this time. Qualifiers: Hypertension type: essential hypertension Qualified Code(s): I10 - Essential (primary) hypertension (5) Hyperlipidemia Current Visit: Yes Status: Chronic Assessment and plan: Continue current management. Qualifiers: Hyperlipidemia type: pure hypercholesterolemia Qualified Code(s): E78.00 - Pure hypercholesterolemia, unspecified; E78.0 - Pure hypercholesterolemia - Subjective Interval history: Mr. Medina is currently admitted for acute NSTEMI with severe CAD. He is to have CABG. He remains moderate to high risk due to potential for worsening cardiac status. Mr. Medina had some nausea this AM. Feels better now. No CP or SOB. Blood sugars have been running high and he is not on basal med. Plan is for CABG tomorrow. - Constitutional Vitals: Temp Pulse Resp BP Pulse Ox 98.2 F 62 16 113/68 94 12/10/16 11:08 12/10/16 11:08 12/10/16 11:08 12/10/16 11:08 12/10/16 11:08 General appearance: Present: A&O X 3, pleasant - Head Head exam: Present: normocephalic - Eye Eye exam: Present: EOMI, conjuntiva pink - ENT ENT exam: Present: mucous membranes moist - Respiratory Respiratory exam: Present: decreased breath sounds, CTAB. Absent: rhonchi, wheezes - Cardiovascular Cardiovascular exam: Present: RRR. Absent: tachycardia - GI/Abdominal GI/Abdominal exam: Present: normal bowel sounds, soft. Absent: tenderness - Extremities Exam Extremities exam: Present: warm. Absent: tenderness - Neurological Exam Neurological exam: Present: alert, oriented X3 - Psychiatric Psychiatric exam: Present: normal affect, normal mood - Skin Skin exam: Present: warm Internal Medicine: Result - Labs CBC & Chem 7: 12/09/16 01:09 12/09/16 01:09 - ABG Interpretation ABG results: PT/INR, D-dimer PT 13.0 Seconds (9.4-12.1) H 12/07/16 04:27 Consult Discharge Plan - Plan Referrals: Declan Vick DO [Primary Care Provider] -
--- NOTE | 2016-12-10 14:11 | Cardiothoracic Progress Note ---
Date of Encounter: 12/10/16 Time of Encounter: 14:09 - Assessment and plan (1) Non-STEMI (non-ST elevated myocardial infarction) Current Visit: Yes Status: Acute Open heart surgery is scheduled for tomorrow. The patient has no questions. - Subjective Interval history: The patient has no angina and no chest pain. Vital Signs, Last 4 Hours Temp Pulse Resp BP Pulse Ox 12/10/16 11:08 98.2 F 62 16 113/68 94 Weight 12/08/16 12/09/16 12/10/16 23:59 23:59 23:59 Weight 84.5 kg 85.9 kg Lungs are clear to percussion and auscultation. Heart is in a normal sinus rhythm. - Labs 12/09/16 01:09 12/09/16 01:09 Lab Results, Last 24 hours 12/10/16 01:02 APTT 58.9 H Consult Discharge Plan - Plan Referrals: Declan Vick DO [Primary Care Provider] -
--- NOTE | 2016-12-10 14:20 | Anesthesia Evaluation PreOp ---
Date of Encounter: 12/11/16 Time of Encounter: 07:16 - Past History Planned Operation: CABG Cardiac History: [place] (NSTEMI), Angina, HTN, Hyperlipidemia, Cardiac Stent (2011 x1) Pulmonary History: Denies Any Significant HX AIR DEFENSE CONTROL OFFICER History: Denies Any Significant HX Other Medical History: Diabetes Type II Anesthesia History: No Prior Anesthetic Complications, Past Anesthesia (c-fusion ) Alcohol Use: rarely Drug use: none Medications and Allergies Calcium Carbonate/Vitamin D3 [Calcium 600-Vit D3 800 Tab] 1 tab PO DAILY [History] Duloxetine HCl [Cymbalta] 60 mg PO DAILY 12/07/16 [History] Ibuprofen 800 mg PO Q8H PRN 12/07/16 [History] Lisinopril [Zestril] 5 mg PO DAILY 12/07/16 [History] metFORMIN [Glucophage] 1,000 mg PO BIDWM 12/07/16 [History] Allergies albuterol Adverse Reaction (Verified 12/07/16 09:13) See Comments HIVES, SWELLING - Meds/Allergy Pre-op Review Medications Reviewed: Yes Allergies Reviewed: Yes Beta Blockers on Current Med List: Yes If Beta Blockers taken, Date/Time (Last Dose taken): 2009hr on 12/10 Anesthesia Results - Labs 12/09/16 01:09 12/09/16 01:09 - Imaging EKG: report reviewed Additional studies: cath shows severe 3 vessel ds, EF60% Anesthesia Exam Selected Entries 12/11/16 05:42 Temperature 99.2 F Pulse Rate 72 Respiratory Rate 16 Blood Pressure 121/69 O2 Sat by Pulse Oximetry 96 Weight: 86kg NPO (# of Hours): 8 Pain Scale: 0 Pain Scale Used: Numeric (1 - 10) - HEENT Pupil (Motor): EOMI Mallampati: II Teeth: Edentulous Oral Opening: Greater than 3 - AIR DEFENSE CONTROL OFFICER LOC: Oriented AIR DEFENSE CONTROL OFFICER Motor: Normal RUE, Normal LUE, Normal RLE, Normal LLE, Normal Face AIR DEFENSE CONTROL OFFICER Sensory: Normal: RUE, LUE, RLE, LLE, Face - Cardiac Rhythm: Regular Murmur: None - Pulmonary Breath Sounds: bilateral Clear Respiratory Effort: Symmetrical Anesthesia Assess/Plan ASA Score: 4 Modified Dariela Scale for Level of Consciousness: Cooperative, oriented, and tranquil Anesthetic Plan: General Monitoring Plan: Standard Monitors, A-Line, PAC, LIZZIE Recovery Plan: ICU (Discussed risks of GA, lines, LIZZIE, and blood products. Questions answered and agrees to proceed.)
[2016-12-10] MEDS: Chlorhexidine Rinse 15 ML MOUTHWASH MM SCH ×2 (19:23→20:10)
[2016-12-11] MEDS: *HR* Heparin 5,000 UNIT/ML VIAL IVP PRN (03:49)
[2016-12-11] MEDS: Heparin 25,000 UNIT/500 ML D5W 25,000 UNIT/500 ML MLS IVC SCH (03:51)
[2016-12-11] MEDS ORDERED: ceFAZolin 2,000 MG in D5% in Water 100 ML IVPB ONE (05:00)
[2016-12-11] MEDS: Aspirin 81 MG TAB.CHEW PO SCH (06:28)
[2016-12-11] MEDS: Chlorhexidine Rinse 15 ML MOUTHWASH MM SCH ×2 (06:31→23:33)
[2016-12-11] MEDS ORDERED: *HR* Etomidate 20 MG/10 ML AMPUL IVP ONE (06:47)
[2016-12-11] MEDS ORDERED: Famotidine 20 MG/2 ML VIAL ONE (06:47)
[2016-12-11] MEDS ORDERED: *HR* Phenylephrine 10 MG/ML VIAL ONE (06:47)
[2016-12-11] MEDS ORDERED: *HR* Rocuronium Bromide 50 MG/5 ML VIAL ONE (06:47)
[2016-12-11] MEDS ORDERED: *HR* Norepinephrine 4 MG/4 ML VIAL IVC ONE (06:47)
[2016-12-11] MEDS ORDERED: Protamine Sulfate 250 MG/25 ML VIAL IVP ONE (06:48)
[2016-12-11] MEDS ORDERED: Tranexamic Acid 1,000 MG/10 ML VIAL ONE ×2 (06:48→09:28)
[2016-12-11] MEDS ORDERED: *HR* Midazolam HCl 5 MG/5 ML VIAL IVP ONE (06:54)
[2016-12-11] MEDS ORDERED: Nitroglycerin 25 MG/250 ML INFUS..BTL IVC ONE ×2 (06:59→10:23)
[2016-12-11] MEDS ORDERED: Insulin Regular, Human 100 UNIT/ML ONE (07:00)
[2016-12-11] MEDS ORDERED: Verapamil 5 MG/2 ML VIAL ONE (07:06)
[2016-12-11] MEDS ORDERED: *HR* FentaNYL (PF) 1,000 MCG/20 ML VIAL ONE (07:10)
[2016-12-11] MEDS: Ringers Solution, Lactated 1,000 ML IVC SCH ×2 (07:45→11:00)
[2016-12-11] MEDS ORDERED: *HR* Metoprolol 5 MG/5 ML VIAL IVP ONE (08:43)
--- NOTE | 2016-12-11 08:47 | Anesthesia Procedures ---
Date of Encounter: 12/11/16 Time of Encounter: 07:50 Procedures: Anesthesia - Arterial Line Consent obtained: written consent Time out performed: Yes Sedation: Versed (mg): 2 Sedation: Fentanyl (mcg): 100 Supplemental Oxygen via Nasal Cannula (L/min): 2 Size (Gauge): 20 Length (inches): 5 Technique Used: sterile prep, guide wire technique, direct puncture technique Post-Procedure: line taped into place, dry sterile dressing placed Patient tolerated procedure: well, no complications Complications: none Site: Radial L (attempt x 1 easy) - Central Line Placement Right IJ Consent obtained: written consent Time out performed: Yes Patient placed on monitor/pulse ox: Yes MD prep: mask, gown, gloves Central line prep: Chlorhexidine scrub Ultrasound used for placement: Yes Technique: Seldinger Lumen Inserted: Introducer Post procedure: sutured in place, good blood return, all ports aspirated, flushed, capped, sterile dressing applied Patient tolerated procedure: well, no complications Complications: none (introducer placed easily, swan placed without arrythmias, wedge at approx 55cm)
[2016-12-11] MEDS ORDERED: Albumin Human 5% 50.0 GM/1,000 ML VIAL ONE (10:23)
[2016-12-11] MEDS ORDERED: *HR* Dextrose 50 % in Water (Syg) 50 ML SYRINGE IVP PRN (11:28)
[2016-12-11] MEDS ORDERED: *HR* Promethazine 25 MG/ML VIAL IVP PRN (11:28)
[2016-12-11] MEDS ORDERED: Ondansetron 4 MG/2 ML VIAL IVP PRN (11:28)
[2016-12-11] MEDS ORDERED: Potassium Chloride 40 MEQ/200 ML BAG IVPB PRN (11:28)
[2016-12-11] MEDS ORDERED: *HR* Morphine 2 MG/ML SYRINGE IVP PRN (11:28)
--- NOTE | 2016-12-11 11:28 | Electrocardiograph Report ---
[address] [address] Test Date: 2016-12-10 Pat Name: Rogelio Medina Department: 111 Room: [facility] Gender: M Mill Washer: TEDDY : 1950 Requested By: Dawson Gao Order Number: [id number] Reading MD: Kerri Machado Measurements Intervals [place] Rate: 72 P: 32 VA: 139 QRS: 45 QRSD: 102 T: 76 QT: 362 QTc: 386 Interpretive Statements SINUS RHYTHM Electronically Signed On 12-11-2016 11:26:41 EDT by Kerri Machado
[2016-12-11] MEDS: Insulin Human Regular 100 UNIT in 0.9 % Sodium Chloride 100 ML IVC SCH ×2 (11:35→22:09)
[2016-12-11] MEDS: Insulin Regular, Human 100 UNIT/ML IV PRN ×5 (11:35→14:36)
[2016-12-11] MEDS ORDERED: niCARdipine 20 MG/200 ML MLS IVC SCH (11:45)
[2016-12-11] MEDS ORDERED: niCARdipine 40 MG/200 ML MLS IVC ONE (11:47)
--- NOTE | 2016-12-11 11:48 | Operative Note ---
Date of procedure: 12/11/16 Procedure in Detail: Preoperative diagnosis. Coronary artery disease. Postoperative diagnosis. Same. Procedures. Coronary artery bypass grafting 2 with the left internal mammary artery to the LAD in the aorta to the obtuse marginal branch of the circumflex with saphenous vein. Surgeon. Dr. Giovany Kingston. Community Health Coordinator. Naseem Mckee. Anesthesia. Dr. Roberto Perez. Patient is a 65-year-old gentleman who presented with coronary artery disease. He did have a positive troponin. Cardiac catheterization revealed severe coronary artery disease with a 99% proximal LAD lesion. He was brought to the OR where he was prepped and draped in standard fashion. The right greater saphenous vein was harvested from the right knee down to the right ankle. This was done through 2 small incisions using the scope. These incisions were subsequently closed with a 2-0 Vicryl subcutaneous stitch and a 3-0 Vicryl subcuticular stitch. Standard median sternotomy was performed. The left internal mammary artery retractor was inserted and the left internal mammary artery was harvested in standard fashion using the Bovie electrocoagulation. Following this, mammary retractor was removed in the standard sternal supervisor inspection room was inserted. Pericardium was opened in the midline and suspended with 2-0 silk stay sutures. A double pursestring of 200 [place] was placed in the aorta for the aortic cannulation site. A pursestring of 2-0 silk was placed in the right atrial appendage for the venous uptake. The patient was heparinized. The aorta was cannulated without difficulty. Two-stage venous uptake cannula was inserted through the right atrial appendage. A purse string of 3-0 silk was placed in the aorta and the cardioplegia needle was inserted through here. This was also used is an active and passive aortic vent. The aorta was crossclamped and a liter of antegrade [place]a plegia was given. Topical cooling with iced saline slush was also used. Attention was first turned to the circumflex system. The intermediate branch in the obtuse marginal branch #1 of the circumflex were too small and diffusely diseased for grafting. The obtuse marginal branch #2 was dissected free with the [place] blade and opened with a [place] blade and the Anton scissors. This had a lumen of 1-1/2 mm with moderate diffuse disease. A standard end-to-side anastomosis was constructed using the saphenous vein and a 7-0 Prolene. When this is completed, the patient received an additional dose of antegrade cardioplegia. Mammary pedicle was harvested. Tonsil clamp was placed distally and it was divided with the Metzenbaum scissors. Distal end was tied off with a 2-0 silk suture. Proximal end was trimmed and brought into the wound. The LAD was dissected free with the [place] blade. It had severe distal disease in the distal one third of the vessel. It was opened in its midportion with the [place] blade and the Anton scissors. It had a lumen of 1-1/2 mm with moderate diffuse disease. A standard end-to-side anastomosis was constructed using the mammary artery and a 7-0 Prolene. When this was completed, the previously placed bulldog clamp was removed. Hemostasis was good. Pedicle was tacked to the surface a heart using 2 interrupted 5-0 silk sutures. Cross-clamp was removed and rewarming was begun. Total cross-clamp time was 37 minutes. A side-biting clamp was placed on the aorta and the cardioplegia needle was removed. A hole was made in the aorta using the [place] blade and the 4.5 mm aortic punch. A standard proximal anastomosis were constructed using the saphenous vein and a 5- 0 Prolene. When this is completed, the side-biting clamp was removed. The graft was de-aired using #25-gauge needle and the previously placed bulldog clamp was removed. Distal anastomoses were inspected and found to be hemostatic. Proximal anastomosis was marked with a marker from Ray-Decalog sponge a pair of ventricular pacing wires was left. A 32 right angle chest tube in the left pleural space. A 32 right chest tube into the pericardial well. A 42 mediastinal chest tube. I did place some FloSeal around the GARCIA distal anastomosis and the proximal anastomosis. The patient was weaned from bypass requiring no pressors for support. He was decannulated and protamine was given. Hemostasis was good and the hemodynamics were good. Pericardium was left open. Sternum was closed with # 7 sternal wires in simple and [id number] fashion. Fascia was run with #1 Vicryl. Subcutaneous tissues with a 2-0 Vicryl. Skin was closed with a 3-0 Vicryl subcuticular stitch. The patient tolerated the procedure well and was returned to intensive care unit in satisfactory and stable condition. Total bypass time 60 minutes. Total cross-clamp time 37 minutes. He been cooled to 35.4.
[2016-12-11 11:52] LABS: ABG HCO3 29.9 mEQ/L (21-27); ABG Oxygen Saturation 100 % (95-98); ABG PCO2 35 mmHg (35-45); ABG PH 7.54 pH Units (7.32-7.45); ABG PO2 223 mmHg (85-104)
[2016-12-11 11:53] LABS: Blood Gas FiO2 80 %
[2016-12-11 11:54] LABS: Basophils % 0.2 %; Eosinophils # 0.1 K/mcL (0.0-0.6); Eosinophils % 1.5 %; Hematocrit 31.5 % (37.5-50.1); Hemoglobin 11.4 g/dL (12.9-16.9); Immature Granulocytes % 1.1 % (0-4); Lymphocytes # 0.9 K/mcL (0.6-4.6); Lymphocytes % 9.2 %; Mean Corpuscular HGB Conc 36.2 g/dL (31.6-35.5); Mean Corpuscular Volume 85.6 fL (83.0-100.0); Mean Platelet Volume 8.9 fL (9.4-12.4); Monocytes % 5.8 %; Neutrophils # 7.7 K/mcL (1.6-8.9); Platelet Count 154 K/mcL (140-400); Red Blood Count 3.68 M/mcL (4.19-5.50); Red Cell Distribution Width 12.2 % (11.5-14.5); Segmented Neutrophils % 82.2 %
[2016-12-11 11:57] LABS: Monocytes # 0.6 K/mcL (0.0-1.3)
[2016-12-11] MEDS ORDERED: Mannitol 25% vial 12.5 GM/50 ML VIAL IVPB ONE (12:00)
[2016-12-11] MEDS ORDERED: *HR* Phenylephrine 10 MG/ML VIAL IC ONE (12:00)
[2016-12-11] MEDS ORDERED: Lidocaine 2% Syringe 100 MG/5 ML IVP ONE (12:00)
[2016-12-11] MEDS ORDERED: Albumin Human 25% 25 GM/100 ML IV.SOLN IV ONE (12:00)
[2016-12-11] MEDS ORDERED: *HR* Heparin 10,000 UNIT/10 ML VIAL IVP ONE (12:00)
[2016-12-11 12:04] LABS: Activated Partial Thrombo Time 28.2 Seconds (26.0-36.0); INR 1.7
[2016-12-11 12:06] LABS: BUN/Creatinine Ratio 15 (6-26); Blood Urea Nitrogen 11 mg/dL (8-26); Calcium 8.4 mg/dL (8.6-10.8); Carbon Dioxide 26 mEq/L (19-29); Chloride 104 mEq/L (98-109); Glucose 248 mg/dL (70-99); Magnesium 2.2 mg/dL (1.6-2.6); Osmolality,Calculated 292 (280-300); Potassium 3.9 mEq/L (3.5-4.5); Sodium 137 mEq/L (136-145); eGFR For African Americans > 60 (> 60); eGFR For Non-African Americans > 60 (> 60)
[2016-12-11] MEDS: 0.9 % Sodium Chloride 1,000 ML IVC SCH (12:07)
[2016-12-11 12:08] LABS: Prothrombin Time 18.5 Seconds (9.4-12.1)
[2016-12-11] MEDS: Nitroglycerin 25 MG/250 ML INFUS..BTL IVC SCH ×2 (12:08→21:16)
[2016-12-11] MEDS: niCARdipine 40 MG/200 ML MLS IVC SCH ×2 (12:15→23:33)
[2016-12-11] MEDS: Ipratropium 1 PUFF INHALER IH SCH ×4 (12:16→23:43)
[2016-12-11 12:30] LABS: ABG Glucose 189 mg/dL (60-95); ABG HCO3 31.6 mEQ/L (21-27); ABG Hematocrit 35 % (35-51); ABG Ionized Calcium 1.21 mmol/L (1.15-1.35); ABG Oxygen Saturation 94 % (95-98); ABG PCO2 56 mmHg (35-45); ABG PH 7.36 pH Units (7.32-7.45); ABG PO2 73 mmHg (85-104); ABG TCO2 33.3 mEq/L (20-26)
[2016-12-11 12:32] LABS: ABG PH 7.47 pH Units (7.32-7.45)
[2016-12-11 12:33] LABS: ABG Base Excess 1.8 mEq/L (-2.0 to 3.0); ABG Glucose 180 mg/dL (60-95); ABG HCO3 25.5 mEQ/L (21-27); ABG Hematocrit 27 % (35-51); ABG Oxygen Saturation 99 % (95-98); ABG PCO2 35 mmHg (35-45); ABG PO2 111 mmHg (85-104); ABG TCO2 26.6 mEq/L (20-26)
[2016-12-11 12:34] LABS: ABG Ionized Calcium 0.94 mmol/L (1.15-1.35)
[2016-12-11 12:35] LABS: ABG HCO3 29.8 mEQ/L (21-27); ABG PCO2 40 mmHg (35-45); ABG PH 7.48 pH Units (7.32-7.45); ABG PO2 331 mmHg (85-104)
[2016-12-11 12:36] LABS: ABG Base Excess 5.8 mEq/L (-2.0 to 3.0); ABG Glucose 255 mg/dL (60-95); ABG Hematocrit 22 % (35-51); ABG Ionized Calcium 0.95 mmol/L (1.15-1.35); ABG Oxygen Saturation 100 % (95-98)
[2016-12-11] MEDS: Esmolol 2.5 GM/250 ML MLS IVC SCH ×2 (12:36→21:16)
[2016-12-11 12:39] LABS: ABG Base Excess 5.9 mEq/L (-2.0 to 3.0); ABG Glucose 245 mg/dL (60-95); ABG HCO3 29.7 mEQ/L (21-27); ABG Hematocrit 24 % (35-51); ABG Ionized Calcium 0.97 mmol/L (1.15-1.35); ABG Oxygen Saturation 100 % (95-98); ABG PCO2 39 mmHg (35-45); ABG PH 7.49 pH Units (7.32-7.45); ABG PO2 266 mmHg (85-104); ABG TCO2 30.9 mEq/L (20-26)
[2016-12-11] MEDS ORDERED: *HR* Vecuronium 10 MG VIAL ONE (13:52)
[2016-12-11] MEDS ORDERED: Dexmedetomidine HCl 400 MCG/100 ML MLS IVC ONE (13:55)
[2016-12-11] MEDS ORDERED: *HR* Vecuronium 10 MG VIAL IVP ONE (14:00)
[2016-12-11] MEDS: *HR* Morphine 2 MG/ML SYRINGE IVP PRN ×2 (14:00→18:40)
[2016-12-11] MEDS: Dexmedetomidine HCl 400 MCG/100 ML MLS IVC SCH (14:05)
[2016-12-11] MEDS: Insulin LISPRO 300 UNITS/3 ML VIAL SQ SCH ×7 (14:17→21:15)
[2016-12-11] MEDS: Isosorbide MONOnitrate (24 HR) 30 MG TAB.ER.24H PO SCH (14:19)
[2016-12-11] MEDS: Norepinephrine 4 MG in D5% in Water 250 ML IVC SCH (15:10)
[2016-12-11] MEDS: ceFAZolin 2,000 MG in D5% in Water 100 ML IVPB SCH ×2 (15:20→23:33)
[2016-12-11] MEDS ORDERED: *HR* LORazepam 2 MG/ML VIAL IVP PRN (15:27)
[2016-12-11 15:47] LABS: ABG Base Excess 6.6 mEq/L (-2.0 to 3.0); ABG HCO3 30.5 mEQ/L (21-27); ABG Oxygen Saturation 100 % (95-98); ABG PCO2 40 mmHg (35-45); ABG PH 7.49 pH Units (7.32-7.45); ABG PO2 171 mmHg (85-104); ABG TCO2 31.7 mEq/L (20-26)
[2016-12-11 15:50] LABS: Blood Gas FiO2 45 %
[2016-12-11] MEDS ORDERED: *HR* LORazepam 2 MG/ML VIAL IVP SCH (16:00)
[2016-12-11] MEDS: *HR* HYDROcodone/Acet 5/325 mg TABLET PO PRN (16:10)
--- NOTE | 2016-12-11 16:21 | Electrocardiograph Report ---
[place] [address] Test Date: 2016-12-11 Pat Name: Rogelio Medina Department: 109 Room: [facility] Gender: M Voltage Tester: COMPA : 1950 Requested By: Giovany Kingston Order Number: [id number] Reading MD: Kerri Machado Measurements Intervals [place] Rate: 99 P: 26 [place]: 132 QRS: 59 QRSD: 114 T: 89 QT: 363 QTc: 419 Interpretive Statements SINUS RHYTHM MODERATE INTRAVENTRICULAR CONDUCTION DELAY MODERATE ST DEPRESSION Electronically Signed On 12-11-2016 16:19:11 EDT by Kerri Machado
[2016-12-11] MEDS: Acetaminophen 325 MG TABLET PO PRN (17:11)
[2016-12-11 20:02] LABS: ABG Base Excess 5.8 mEq/L (-2.0 to 3.0); ABG HCO3 29.8 mEQ/L (21-27); ABG Oxygen Saturation 99 % (95-98); ABG PCO2 40 mmHg (35-45); ABG PO2 141 mmHg (85-104)
[2016-12-11 20:03] LABS: ABG PH 7.48 pH Units (7.32-7.45); Blood Gas FiO2 35 %; Blood Gas PEEP 5 cm H2O; Blood Gas Respiration Rate 10; Blood Gas VT 650 cc
[2016-12-11 22:02] LABS: ABG Base Excess 5.6 mEq/L (-2.0 to 3.0); ABG HCO3 29.8 mEQ/L (21-27); ABG Oxygen Saturation 99 % (95-98); ABG PCO2 41 mmHg (35-45); ABG PO2 120 mmHg (85-104); ABG TCO2 31.1 mEq/L (20-26); Blood Gas FiO2 32 %
[2016-12-11 22:03] LABS: ABG PH 7.47 pH Units (7.32-7.45)
[2016-12-12] MEDS: 0.9 % Sodium Chloride 1,000 ML IVC SCH ×3 (00:14→23:49)
[2016-12-12] MEDS: *HR* Morphine 2 MG/ML SYRINGE IVP PRN (01:51)
[2016-12-12 04:06] LABS: Basophils % 0.2 %; Eosinophils % 0.3 %; Hematocrit 29.7 % (37.5-50.1); Hemoglobin 10.4 g/dL (12.9-16.9); Immature Granulocytes % 0.6 % (0-4); Lymphocytes # 0.9 K/mcL (0.6-4.6); Lymphocytes % 9.9 %; Mean Corpuscular Hemoglobin 30.9 pg (28.0-33.3); Mean Corpuscular Volume 88.1 fL (83.0-100.0); Mean Platelet Volume 8.8 fL (9.4-12.4); Monocytes # 0.8 K/mcL (0.0-1.3); Monocytes % 9.2 %; Neutrophils # 7.1 K/mcL (1.6-8.9); Platelet Count 187 K/mcL (140-400); Red Blood Count 3.37 M/mcL (4.19-5.50); Red Cell Distribution Width 12.7 % (11.5-14.5); Segmented Neutrophils % 79.8 %
[2016-12-12 04:10] LABS: BUN/Creatinine Ratio 16 (6-26); Blood Urea Nitrogen 12 mg/dL (8-26); Calcium 8.4 mg/dL (8.6-10.8); Carbon Dioxide 25 mEq/L (19-29); Chloride 107 mEq/L (98-109); Glucose 115 mg/dL (70-99); Magnesium 1.8 mg/dL (1.6-2.6); Osmolality,Calculated 291 (280-300); Potassium 3.9 mEq/L (3.5-4.5); Sodium 140 mEq/L (136-145); eGFR For African Americans > 60 (> 60); eGFR For Non-African Americans > 60 (> 60)
[2016-12-12 04:18] LABS: INR 1.5
[2016-12-12 04:21] LABS: Activated Partial Thrombo Time 27.5 Seconds (26.0-36.0)
[2016-12-12 04:23] LABS: Prothrombin Time 16.6 Seconds (9.4-12.1)
[2016-12-12] MEDS ORDERED: Furosemide 20 MG/2 ML VIAL IVP ONE ×2 (04:26→04:34)
[2016-12-12] MEDS: Ipratropium 1 PUFF INHALER IH SCH ×6 (04:28→23:14)
[2016-12-12] MEDS: niCARdipine 40 MG/200 ML MLS IVC SCH ×3 (06:35→20:13)
--- NOTE | 2016-12-12 07:09 | Cardiothoracic Progress Note ---
Date of Encounter: 12/12/16 Time of Encounter: 07:07 - Assessment and plan (1) Non-STEMI (non-ST elevated myocardial infarction) Current Visit: Yes Status: Acute We will leave the Bean catheter until tomorrow. I will start him on Lopressor for sinus tachycardia. - Subjective Interval history: The patient is extubated and on no drips. He requests that we leave the Bean until tomorrow when his chest tubes are removed. Vital Signs, Last 4 Hours Temp Pulse Resp BP Pulse Ox 12/12/16 06:00 121 16 135/54 97 12/12/16 05:00 101 F H 90 20 124/62 96 12/12/16 04:29 17 98 12/12/16 04:15 96 12/12/16 04:00 96 18 129/53 97 Oxgyen Flow Rate Oxygen Flow Rate (LPM) 2 Clinical Data, last 8 Hours Output, Chest Tube Drainage 0 Amount [Mediastinal #1] Output, Chest Tube Drainage 10 Amount [Mediastinal #1] Output, Chest Tube Drainage 30 Amount [Mediastinal #1] Output, Chest Tube Drainage 0 Amount [Mediastinal #1] Output, Chest Tube Drainage 0 Amount [Mediastinal #1] Output, Chest Tube Drainage 30 Amount [Mediastinal #1] Output, Chest Tube Drainage 0 Amount [Mediastinal #1] Output, Chest Tube Drainage 0 Amount [Mediastinal #2] Output, Chest Tube Drainage 10 Amount [Mediastinal #2] Output, Chest Tube Drainage 0 Amount [Mediastinal #2] Output, Chest Tube Drainage 0 Amount [Mediastinal #2] Output, Chest Tube Drainage 10 Amount [Mediastinal #2] Output, Chest Tube Drainage 20 Amount [Mediastinal #2] Output, Chest Tube Drainage 0 Amount [Mediastinal #2] Output, Chest Tube Drainage 15 Amount [Mediastinal #3] Output, Chest Tube Drainage 25 Amount [Mediastinal #3] Output, Chest Tube Drainage 10 Amount [Mediastinal #3] Output, Chest Tube Drainage 0 Amount [Mediastinal #3] Output, Chest Tube Drainage 5 Amount [Mediastinal #3] Output, Chest Tube Drainage 15 Amount [Mediastinal #3] Output, Chest Tube Drainage 0 Amount [Mediastinal #3] Weight 12/10/16 12/11/16 12/12/16 23:59 23:59 23:59 Weight 85.9 kg 85.4 kg Lungs are clear to percussion and auscultation. Heart is in a normal sinus rhythm. All incisions are healing well without signs of infection and the sternum is stable. Chest tube drainage is minimal and there is no air leak. - Labs 12/12/16 03:50 12/12/16 03:50 Lab Results, Last 24 hours 12/11/16 12/11/16 12/11/16 11:41 11:41 11:41 WBC 9.4 Hgb 11.4 L Hct 31.5 L Plt Count 154 INR 1.7 APTT 28.2 Sodium 137 Potassium 3.9 Chloride 104 Carbon Dioxide 26 BUN 11 Creatinine 0.71 L Glucose 248 H Calcium 8.4 L Magnesium 2.2 12/12/16 12/12/16 12/12/16 03:50 03:50 03:50 WBC 8.9 Hgb 10.4 L Hct 29.7 L Plt Count 187 INR 1.5 APTT 27.5 Sodium 140 Potassium 3.9 Chloride 107 Carbon Dioxide 25 BUN 12 Creatinine 0.75 Glucose 115 H Calcium 8.4 L Magnesium 1.8 - VTE Documentation of Mechanical Device: Graduated compression elastic hosiery Consult Discharge Plan - Plan Referrals: Declan Vick DO [Primary Care Provider] -
[2016-12-12] MEDS: Acetaminophen 325 MG TABLET PO PRN ×2 (07:26→19:52)
[2016-12-12] MEDS: Insulin LISPRO 300 UNITS/3 ML VIAL SQ SCH ×7 (07:45→19:59)
[2016-12-12] MEDS: Isosorbide MONOnitrate (24 HR) 30 MG TAB.ER.24H PO SCH (07:56)
[2016-12-12] MEDS: Aspirin 81 MG TAB.CHEW PO SCH (07:56)
[2016-12-12] MEDS: Chlorhexidine Rinse 15 ML MOUTHWASH MM SCH ×2 (07:57→19:51)
[2016-12-12] MEDS: Esmolol 2.5 GM/250 ML MLS IVC SCH ×3 (10:09→23:50)
[2016-12-12] MEDS: Nitroglycerin 25 MG/250 ML INFUS..BTL IVC SCH ×3 (10:11→23:49)
--- NOTE | 2016-12-12 13:07 | Anesthesia Evaluation Post Op ---
Date of Encounter: 12/12/16 Time of Encounter: 11:00 - Vital Signs Vital Signs: Selected Entries 12/12/16 10:00 Pulse Rate 77 Respiratory Rate 22 Blood Pressure 104/64 O2 Sat by Pulse Oximetry 94 Oxygen Flow Rate (LPM) 2 Oxygen Delivery Method Nasal Cannula - Lungs Lungs: Clear Ascult./Percussion - Airway Airway: Non-obstructed - Cardiovascular Regular Rate - Mental Status Mental Status: Alert & Oriented, Answers Appropriately - Pain Pain Scale: 3 Pain Scale used: Numeric (1 - 10) - Nausea Vomiting Nausea Vomiting: Not Present - Hydration Hydration: Tolerates oral liquids, Bean catheter (sitting up in bed, no apparent anesthesia issues)
[2016-12-12] MEDS: Insulin Human Regular 100 UNIT in 0.9 % Sodium Chloride 100 ML IVC SCH (14:42)
[2016-12-12] MEDS: Dexmedetomidine HCl 400 MCG/100 ML MLS IVC SCH (14:43)
[2016-12-12] MEDS: Norepinephrine 4 MG in D5% in Water 250 ML IVC SCH (15:51)
[2016-12-13] MEDS: Ipratropium 1 PUFF INHALER IH SCH ×5 (04:13→20:08)
[2016-12-13 04:42] LABS: Basophils % 0.1 %; Eosinophils # 0.1 K/mcL (0.0-0.6); Eosinophils % 0.6 %; Hematocrit 31.1 % (37.5-50.1); Hemoglobin 10.6 g/dL (12.9-16.9); Immature Granulocytes % 0.6 % (0-4); Lymphocytes # 1.3 K/mcL (0.6-4.6); Lymphocytes % 9.2 %; Mean Corpuscular HGB Conc 34.1 g/dL (31.6-35.5); Mean Corpuscular Hemoglobin 31.3 pg (28.0-33.3); Mean Corpuscular Volume 91.7 fL (83.0-100.0); Mean Platelet Volume 9.2 fL (9.4-12.4); Monocytes # 1.2 K/mcL (0.0-1.3); Monocytes % 8.4 %; Neutrophils # 11.4 K/mcL (1.6-8.9); Platelet Count 225 K/mcL (140-400); Red Blood Count 3.39 M/mcL (4.19-5.50); Segmented Neutrophils % 81.1 %
[2016-12-13 04:58] LABS: BUN/Creatinine Ratio 20 (6-26); Blood Urea Nitrogen 15 mg/dL (8-26); Calcium 8.8 mg/dL (8.6-10.8); Carbon Dioxide 23 mEq/L (19-29); Chloride 102 mEq/L (98-109); Glucose 208 mg/dL (70-99); Osmolality,Calculated 289 (280-300); Potassium 4.7 mEq/L (3.5-4.5); Sodium 136 mEq/L (136-145); eGFR For African Americans > 60 (> 60); eGFR For Non-African Americans > 60 (> 60)
[2016-12-13] MEDS: niCARdipine 40 MG/200 ML MLS IVC SCH (06:11)
--- NOTE | 2016-12-13 08:28 | Cardiothoracic Progress Note ---
Date of Encounter: 12/13/16 Time of Encounter: 08:26 - Assessment and plan (1) Non-STEMI (non-ST elevated myocardial infarction) Current Visit: Yes Status: Acute I discontinued the pacing wires and chest tubes. We will check a stat portable chest x-ray. We will transfer the patient to the floor. - Subjective Interval history: The patient complains of mild postoperative pain. Vital Signs, Last 4 Hours Pulse Resp BP Pulse Ox 12/13/16 06:00 107 20 106/62 97 12/13/16 05:00 105 24 100/64 95 Oxgyen Flow Rate Oxygen Flow Rate (LPM) 2 Clinical Data, last 8 Hours Output, Chest Tube Drainage 4 Amount [Mediastinal #1] Output, Chest Tube Drainage 0 Amount [Mediastinal #2] Output, Chest Tube Drainage 0 Amount [Mediastinal #3] Weight 12/11/16 12/12/16 12/13/16 23:59 23:59 23:59 Weight 85.4 kg Lungs are clear to percussion and auscultation. Heart is in a normal sinus rhythm. All incisions are healing well without signs of infection and the sternum is stable. Chest tube drainage is minimal and there is no air leak. - Labs 12/13/16 04:25 12/13/16 04:25 Lab Results, Last 24 hours 12/13/16 12/13/16 04:25 04:25 WBC 14.0 H D Hgb 10.6 L Hct 31.1 L Plt Count 225 Sodium 136 Potassium 4.7 H Chloride 102 Carbon Dioxide 23 BUN 15 Creatinine 0.74 Glucose 208 H Calcium 8.8 - VTE Documentation of Mechanical Device: Graduated compression elastic hosiery Consult Discharge Plan - Plan Referrals: Declan Vick DO [Primary Care Provider] -
[2016-12-13] MEDS: Aspirin 81 MG TAB.CHEW PO SCH (09:34)
[2016-12-13] MEDS: Chlorhexidine Rinse 15 ML MOUTHWASH MM SCH ×2 (09:34→20:12)
[2016-12-13] MEDS: Insulin LISPRO 300 UNITS/3 ML VIAL SQ SCH ×7 (09:35→20:11)
[2016-12-13] MEDS: *HR* HYDROcodone/Acet 5/325 mg TABLET PO PRN (10:32)
[2016-12-13] MEDS: Ringers Solution, Lactated 1,000 ML IVC SCH (12:24)
[2016-12-13] MEDS: Isosorbide MONOnitrate (24 HR) 30 MG TAB.ER.24H PO SCH (12:27)
[2016-12-13] MEDS: Nitroglycerin 25 MG/250 ML INFUS..BTL IVC SCH (12:27)
[2016-12-13] MEDS: Insulin Human Regular 100 UNIT in 0.9 % Sodium Chloride 100 ML IVC SCH (12:27)
[2016-12-13] MEDS ORDERED: Ondansetron 4 MG/2 ML VIAL IVP PRN (12:41)
[2016-12-13] MEDS ORDERED: *HR* Dextrose 50 % in Water (Syg) 50 ML SYRINGE IVP PRN (12:41)
[2016-12-13] MEDS ORDERED: D5% in Water 1,000 ML IVC PRN (12:41)
[2016-12-13] MEDS ORDERED: Insulin Human Regular 100 UNIT in 0.9 % Sodium Chloride 100 ML IVC SCH (12:41)
[2016-12-13] MEDS ORDERED: Insulin Human Regular 300 UNIT/3 ML per UNIT IV PRN (12:41)
[2016-12-13] MEDS ORDERED: MOM Conc 10 ML UD.LIQ PO PRN (12:41)
[2016-12-13] MEDS ORDERED: *HR* Promethazine 25 MG/ML VIAL IVP PRN (12:41)
[2016-12-13] MEDS ORDERED: Nitroglycerin 0.4 MG TAB.SUBL SL PRN (12:41)
[2016-12-13] MEDS ORDERED: *HR* HYDROcodone/Acet 5/325 mg TABLET PO PRN (12:41)
[2016-12-13] MEDS ORDERED: *HR* Morphine 2 MG/ML SYRINGE IVP PRN (12:41)
[2016-12-13] MEDS ORDERED: Acetaminophen 325 MG TABLET PO PRN (12:41)
[2016-12-13] MEDS ORDERED: Dextrose Gel 15 GM PO PRN ×2 (12:41)
[2016-12-13] MEDS ORDERED: Ringers Solution, Lactated 1,000 ML IVC SCH (12:41)
[2016-12-13] MEDS ORDERED: *HR* LORazepam 2 MG/ML VIAL IVP PRN (12:41)
[2016-12-13] MEDS ORDERED: Naloxone 0.4 MG/ML INJ IVP PRN (12:41)
[2016-12-13] MEDS: *HR* Metformin 500 MG TABLET PO SCH (17:09)
[2016-12-13] MEDS: *HR* Heparin 5,000 UNIT/ML VIAL SQ SCH (17:14)
[2016-12-13] MEDS: Insulin DETEMIR 100 UNIT/ML X5UNITS SQ SCH (20:12)
[2016-12-14] MEDS: Ipratropium 1 PUFF INHALER IH SCH ×7 (00:07→23:24)
[2016-12-14 04:41] LABS: Basophils % 0.2 %; Eosinophils # 0.1 K/mcL (0.0-0.6); Eosinophils % 1.1 %; Hematocrit 31.9 % (37.5-50.1); Immature Granulocytes % 0.8 % (0-4); Lymphocytes % 8.2 %; Mean Corpuscular HGB Conc 34.5 g/dL (31.6-35.5); Mean Corpuscular Volume 89.9 fL (83.0-100.0); Mean Platelet Volume 8.6 fL (9.4-12.4); Monocytes % 7.8 %; Neutrophils # 10.1 K/mcL (1.6-8.9); Platelet Count 284 K/mcL (140-400); Red Blood Count 3.55 M/mcL (4.19-5.50); Red Cell Distribution Width 12.9 % (11.5-14.5); Segmented Neutrophils % 81.9 %
[2016-12-14 04:53] LABS: BUN/Creatinine Ratio 24 (6-26); Blood Urea Nitrogen 18 mg/dL (8-26); Carbon Dioxide 27 mEq/L (19-29); Chloride 101 mEq/L (98-109); Glucose 233 mg/dL (70-99); Osmolality,Calculated 291 (280-300); Potassium 4.6 mEq/L (3.5-4.5); Sodium 136 mEq/L (136-145); eGFR For African Americans > 60 (> 60); eGFR For Non-African Americans > 60 (> 60)
[2016-12-14] MEDS: *HR* Heparin 5,000 UNIT/ML VIAL SQ SCH ×2 (06:22→16:41)
--- NOTE | 2016-12-14 07:28 | Cardiothoracic Progress Note ---
Date of Encounter: 12/14/16 Time of Encounter: 07:26 - Assessment and plan (1) Non-STEMI (non-ST elevated myocardial infarction) Current Visit: Yes Status: Acute Hopefully, the patient to be transferred to her room today if one is available. He probably will be ready for discharge by Saturday. - Subjective Interval history: The patient has no complaints and feels much better after his chest tubes were removed. Vital Signs, Last 4 Hours Temp Pulse Resp BP Pulse Ox 12/14/16 06:00 91 10 118/73 98 12/14/16 04:06 17 97 12/14/16 04:00 97.7 F 97 12 117/67 98 Oxgyen Flow Rate Oxygen Flow Rate (LPM) 2 Weight 12/12/16 12/13/16 12/14/16 23:59 23:59 23:59 Weight 90.129 kg Lungs are clear to percussion and auscultation. Heart is in a normal sinus rhythm. All incisions are healing well without signs of infection and the sternum is stable. - Labs 12/14/16 04:35 12/14/16 04:35 Lab Results, Last 24 hours 12/14/16 12/14/16 04:35 04:35 WBC 12.4 H Hgb 11.0 L Hct 31.9 L Plt Count 284 Sodium 136 Potassium 4.6 H Chloride 101 Carbon Dioxide 27 BUN 18 Creatinine 0.75 Glucose 233 H Calcium 9.0 - VTE Documentation of Mechanical Device: Graduated compression elastic hosiery Consult Discharge Plan - Plan Referrals: Declan Vick DO [Primary Care Provider] -
[2016-12-14] MEDS: Isosorbide MONOnitrate (24 HR) 30 MG TAB.ER.24H PO SCH (07:46)
[2016-12-14] MEDS: Aspirin 81 MG TAB.CHEW PO SCH (07:46)
[2016-12-14] MEDS: Chlorhexidine Rinse 15 ML MOUTHWASH MM SCH ×2 (07:46→21:15)
[2016-12-14] MEDS: Insulin LISPRO 300 UNITS/3 ML VIAL SQ SCH ×7 (07:47→21:15)
[2016-12-14] MEDS: *HR* Metformin 500 MG TABLET PO SCH ×2 (07:47→16:41)
[2016-12-14] MEDS: Insulin DETEMIR 100 UNIT/ML X5UNITS SQ SCH (21:15)
[2016-12-15] MEDS: Ipratropium 1 PUFF INHALER IH SCH ×6 (03:55→23:37)
[2016-12-15 05:00] LABS: Basophils % 0.5 %; Eosinophils # 0.2 K/mcL (0.0-0.6); Eosinophils % 2.4 %; Hematocrit 29.9 % (37.5-50.1); Hemoglobin 10.1 g/dL (12.9-16.9); Immature Granulocytes % 0.5 % (0-4); Lymphocytes # 1.5 K/mcL (0.6-4.6); Lymphocytes % 17.3 %; Mean Corpuscular HGB Conc 33.8 g/dL (31.6-35.5); Mean Corpuscular Hemoglobin 30.9 pg (28.0-33.3); Mean Corpuscular Volume 91.4 fL (83.0-100.0); Mean Platelet Volume 9.3 fL (9.4-12.4); Monocytes # 0.7 K/mcL (0.0-1.3); Monocytes % 7.7 %; Platelet Count 307 K/mcL (140-400); Red Blood Count 3.27 M/mcL (4.19-5.50); Red Cell Distribution Width 12.9 % (11.5-14.5); Segmented Neutrophils % 71.6 %
[2016-12-15 05:22] LABS: BUN/Creatinine Ratio 22 (6-26); Blood Urea Nitrogen 15 mg/dL (8-26); Calcium 8.8 mg/dL (8.6-10.8); Carbon Dioxide 29 mEq/L (19-29); Chloride 101 mEq/L (98-109); Glucose 219 mg/dL (70-99); Osmolality,Calculated 292 (280-300); Potassium 4.1 mEq/L (3.5-4.5); Sodium 137 mEq/L (136-145); eGFR For African Americans > 60 (> 60); eGFR For Non-African Americans > 60 (> 60)
[2016-12-15] MEDS: *HR* Heparin 5,000 UNIT/ML VIAL SQ SCH ×2 (06:26→18:26)
[2016-12-15] MEDS: Chlorhexidine Rinse 15 ML MOUTHWASH MM SCH ×2 (07:53→20:45)
[2016-12-15] MEDS: *HR* Metformin 500 MG TABLET PO SCH ×2 (07:53→16:07)
[2016-12-15] MEDS: Isosorbide MONOnitrate (24 HR) 30 MG TAB.ER.24H PO SCH (07:54)
[2016-12-15] MEDS: Aspirin 81 MG TAB.CHEW PO SCH (07:54)
[2016-12-15] MEDS: Insulin LISPRO 300 UNITS/3 ML VIAL SQ SCH ×7 (07:55→20:46)
--- NOTE | 2016-12-15 08:05 | Cardiothoracic Progress Note ---
Date of Encounter: 12/15/16 Time of Encounter: 08:04 - Assessment and plan (1) Non-STEMI (non-ST elevated myocardial infarction) Current Visit: Yes Status: Acute Hopefully, the patient can be discharged tomorrow. - Subjective Interval history: The patient has no complaints and is ambulating. Vital Signs, Last 4 Hours Pulse 12/15/16 04:20 87 Oxgyen Flow Rate Oxygen Flow Rate (LPM) 2 Weight 12/13/16 12/14/16 12/15/16 23:59 23:59 23:59 Weight 90.129 kg 89.6 kg Lungs are clear to percussion and auscultation. Heart is in a normal sinus rhythm. All incisions are healing well without signs of infection and the sternum is stable. - Labs 12/15/16 04:25 12/15/16 04:25 Lab Results, Last 24 hours 12/15/16 12/15/16 04:25 04:25 WBC 8.4 Hgb 10.1 L Hct 29.9 L Plt Count 307 Sodium 137 Potassium 4.1 Chloride 101 Carbon Dioxide 29 BUN 15 Creatinine 0.69 L Glucose 219 H Calcium 8.8 - VTE Documentation of Mechanical Device: Graduated compression elastic hosiery Consult Discharge Plan - Plan Referrals: Toney Caldwell MD [Partnered Physician] - (OFFICE WILL CALL PATIENT AT HOME WITH APPOINTMENT. CARDIOLOGY MAKES THEIR OWN APPOINTMENTS) Giovany Kingston MD [Partnered Physician] - 01/10/17 1:15 pm Declan Vick DO [Primary Care Provider] - 12/21/16 10:30 am
[2016-12-15] MEDS: Insulin DETEMIR 100 UNIT/ML X5UNITS SQ SCH (20:45)
[2016-12-16] MEDS: Ipratropium 1 PUFF INHALER IH SCH ×3 (04:00→11:26)
[2016-12-16] MEDS: *HR* Heparin 5,000 UNIT/ML VIAL SQ SCH (05:00)
[2016-12-16 08:04] VITALS: BP 120/64
[2016-12-16] MEDS: Insulin LISPRO 300 UNITS/3 ML VIAL SQ SCH ×4 (08:22→11:47)
[2016-12-16] MEDS: Isosorbide MONOnitrate (24 HR) 30 MG TAB.ER.24H PO SCH (08:23)
[2016-12-16] MEDS: Aspirin 81 MG TAB.CHEW PO SCH (08:23)
[2016-12-16] MEDS: *HR* Metformin 500 MG TABLET PO SCH (08:23)
[2016-12-16] MEDS: Chlorhexidine Rinse 15 ML MOUTHWASH MM SCH (08:23)
--- NOTE | 2016-12-16 09:03 | Discharge Summary ---
Date of Encounter: 12/16/16 Time of Encounter: 08:57 - Discharge Diagnosis (1) Non-STEMI (non-ST elevated myocardial infarction) Priority: Primary Status: Acute - Discharge Medications Prescriptions: HYDROcodone/Acet 5/325 mg [[place] 5-325 mg] 1 tab PO Q4HR PRN #30 tablet PRN Reason: Moderate Pain Aspirin 81 mg PO DAILY #60 tab.chew Atorvastatin [Lipitor] 40 mg PO HS #30 tablet Home Medications: Calcium Carbonate/Vitamin D3 [Calcium 600-Vit D3 800 Tab] 1 tab PO DAILY [History] Duloxetine HCl [Cymbalta] 60 mg PO DAILY 12/07/16 [History] Ibuprofen 800 mg PO Q8H PRN 12/07/16 [History] Lisinopril [Zestril] 5 mg PO DAILY 12/07/16 [History] metFORMIN [Glucophage] 1,000 mg PO BIDWM 12/07/16 [History] Aspirin 81 mg PO DAILY #60 tab.chew 12/16/16 [Rx] Atorvastatin [Lipitor] 40 mg PO HS #30 tablet 12/16/16 [Rx] HYDROcodone/Acet 5/325 mg [[place] 5-325 mg] 1 tab PO Q4HR PRN #30 tablet [Rx] Metoprolol [Lopressor] 50 mg PO BID #60 tablet 12/16/16 [Rx] Allergies/Adverse Reactions: Allergies albuterol Adverse Reaction (Verified 12/07/16 09:13) See Comments HIVES, SWELLING Date of admission: 12/07/16 06:10 Primary care physician: Declan Vick Consults: 12/07/16 03:47 Consult to Cardiology [CONS] Routine Comment: Consulting Provider: Cardiology Calvin Reason for Consult: nstemi Call Completed: No 12/07/16 03:48 Consult to Cardiac Rehabilitation-Phase1 [CONS] Routine Comment: Reason for Consult: AMI Call Completed: Yes Consult to Nurse Navigator [CONS] Routine Comment: 12/07/16 14:36 Consult to Cardiothoracic Surgery [CONS] Routine Consulting Provider: Cardiothoracic Surgery Delma Reason for Consult: CAD eval for CABG Call Completed: Yes 12/11/16 11:28 Consult to Cardiac Rehabilitation-Phase1 [CONS] Routine Comment: Reason for Consult: Post open heart Call Completed: Yes Consult to Photo Printer [CONS] Routine Reason for SW Consult: open heart 12/13/16 12:41 Consult for Pharmacy Education [CONS] Routine Reason for Consult: Post-Op Heart Call Completed: Yes Consult to Occupational Therapy [CONS] Routine Comment: Evaluate, develop and implement POC Reason for Consult: Post-Op Heart Consult to Physical Therapy [CONS] Routine Comment: Evaluate, develop and implement POC Reason for Consult: Post open heart Procedure(s) Performed: December 11, 2016. Coronary artery bypass grafting 2, utilizing his left internal mammary artery. Discharging clinician: Giovany Kingston Anticipated date of discharge: 12/16/16 - Patient Status Disposition: Home, Self-Care Condition: Fair Functional capacity at discharge: independent ambulation Overall status at discharge: patient is progressing back to baseline - Discharge Instructions Follow Up With: Toney Caldwell MD [Partnered Physician] - (OFFICE WILL CALL PATIENT AT HOME WITH APPOINTMENT. CARDIOLOGY MAKES THEIR OWN APPOINTMENTS) Giovany Kingston MD [Partnered Physician] - 01/10/17 1:15 pm Declan Vick DO [Primary Care Provider] - 12/21/16 10:30 am - Hospital Course Hospital course: Mr. Medina is a 65 year old male The patient is a 65-year-old gentleman with a history of diabetes, hypertension and cardiac stents. He presented with shortness of breath and a positive troponin. Cardiac catheterization revealed severe coronary artery disease and he was referred for surgery. On December 11, 2016, I took him to the operating room for coronary artery bypass grafting 2, utilizing his left internal mammary artery. The patient did well. On December 13, I removed his chest tubes and pacing wires. The patient was transferred to the floor. He otherwise did well and was discharged on December 16. At that time, he was afebrile. Lungs were clear to percussion and auscultation. Heart was in a normal sinus rhythm. All incisions were healing well without signs of infection and the sternum was stable. Discharge medications are on the med rec and include Percocet for pain. I did check the [place] automated Rx reporting system. He was postoperative and was given a one-week supply. Appropriate precautions were given. He was to return to his previous a regular diet. He was to avoid heavy lifting for a total of 3 months after surgery, but to walk as much as possible. He was to avoid driving for 1 month. He was to follow up and see me in the office in 4 weeks as directed he was to follow-up with his family doctor and windows admin as directed. He was to call sooner for any difficulties. - Time Spent with Patient Total time spent providing and/or coordinating discharge services: Physical Examination Vital Signs, Last 4 Hours Temp Pulse Resp BP Pulse Ox 12/16/16 08:05 14 97 12/16/16 07:50 98 F 78 14 120/64 97 Open Heart Registry Aspirin Cont/Prescribed at DC: Yes Beta Nohemi Cont/Prescribed at DC: Yes Statin Cont/Prescribed at DC: Yes JALEN/ARB Cont/Prescribed at DC: Yes - VTE Documentation of Mechanical Device: Graduated compression elastic hosiery
== END 2016-12-16 12:53 | disposition home or self-care (01) | DRG 234 ==
LOC: 2NENU → ICNU 12-11 08:54 → 2NNU 12-14 10:24
PROVIDERS: ADMIT Internal Medicine; ATTEND Internal Medicine

== ENCOUNTER 2016-12-19 19:01 | Inpatient (IN) ==
--- NOTE | 2016-12-19 19:49 | Emergency Department Note ---
Disposition Clinical Impression: Hyperglycemia, Weakness generalized, S/P CABG x 2 Disposition: Still a Patient Condition: Undetermined Referrals: NO,PCP [Primary Care Provider] - Forms: ED Satisfaction Letter Time of Disposition: 20:31 Weakness HPI - General Chief complaint: ED Weakness Stated complaint: Glucose 418 Time Seen by Provider: 12/19/16 19:14 Source: patient Mode of arrival: wheelchair Limitations: no limitations Nursing Notes Reviewed: Yes Vital Signs Reviewed: Yes - History of Present Illness HPI Narrative: 65-year-old male with recent CABG on 12/11/[address] Kingston. The patient to vessel repair. The patient did well and was discharged from the hospital 3 days ago. The family room or state that over the course of the past 3 days he has become progressively weaker. The patient states he has been sleeping all day today due to weakness. He denies any cocaine breathing, chest pain, leg swelling. The patient does admit that he is glucose was elevated today so he was given a dose of metformin. Glucose at home was 18. Here in the emergency department it was 312. Patient denies any other complaints at this time. No unilateral weakness or difficulty breathing. Wells criteria is moderate risk, 6 points. Pt Subjective Complaint: generalized weakness/fatigue Onset (ago): day(s) (3) Duration: constant, gradually worsening Pain Scale: 0 Improves with: none Worsens with: none Context: recent surgery Associated symptoms: Reports: denies other symptoms - Related Data Home Medications Medication Instructions Recorded Confirmed Calcium Carbonate/Vitamin D3 1 tab PO DAILY 12/07/16 12/07/16 [Calcium 600-Vit D3 800 Tab] Duloxetine HCl [Cymbalta] 60 mg PO DAILY 12/07/16 12/07/16 Ibuprofen 800 mg PO Q8H PRN 12/07/16 12/07/16 Lisinopril [Zestril] 5 mg PO DAILY 12/07/16 12/07/16 metFORMIN [Glucophage] 1,000 mg PO BIDWM 12/07/16 12/07/16 Previous Rx's Medication Instructions Recorded Aspirin 81 mg PO DAILY #60 tab.chew 12/16/16 Atorvastatin [Lipitor] 40 mg PO HS #30 tablet 12/16/16 HYDROcodone/Acet 5/325 mg [[place] 1 tab PO Q4HR PRN #30 tablet 12/16/16 5-325 mg] Metoprolol [Lopressor] 50 mg PO BID #60 tablet 12/16/16 Allergies Allergy/AdvReac Type Severity Reaction Status Date / Time albuterol AdvReac See Verified 12/07/16 09:13 Comments All systems ED: reviewed and negative except as stated. Constitutional: Reports: weakness. Denies: fever, chills, weight change Eyes: Denies: eye pain, eye discharge, vision change ENT ED: Denies: ear pain, throat pain, dental pain, hearing loss, epistaxis, congestion, dysphagia Cardiovascular: Denies: chest pain, palpitations, dyspnea on exertion, edema, syncope, paroxysmal nocturnal dyspnea Respiratory: Denies: cough, dyspnea, wheezes, hemoptysis, stridor Gastrointestinal: Denies: abdominal pain, nausea, vomiting, diarrhea, constipation, hematemesis, melena, hematochezia Genitourinary: Denies: urgency, dysuria, frequency, hematuria Musculoskeletal: Denies: back pain, neck pain, arthralgia, myalgia Integumentary: Denies: rash, abrasion, lesions Neurological: Reports: weakness. Denies: headache, numbness, paresthesias, confusion, abnormal gait, vertigo Past Medical History - Past Medical History Attestation: Yes The following information was validated with the patient. Source: patient Medical history: Reports: coronary artery disease, diabetes, hyperlipidemia, hypertension, myocardial infarction Surgical history: Reports: angioplasty/stent, other (Cervical fusion) Psychiatric history: Reports: anxiety, depression - Social History Smoking Status: Former smoker Smokeless Tobacco Status: No Alcohol use: Reports: rarely Drug use: Reports: none Physical Exam - General Limitations: no limitations General appearance: alert, in no apparent distress - Head Head exam: atraumatic, normocephalic, normal inspection - Chest Chest inspection: Present: symmetric chest wall rise, tenderness, other ( Sternotomy in place with wound intact without erythema, discharge noted.) - Respiratory Respiratory exam: Present: normal lung sounds bilaterally - Cardiovascular Cardiovascular exam: Present: regular rate, normal rhythm, normal heart sounds - Abdominal Exam Abdominal exam: Present: soft, Non-Tender, normal bowel sounds. Absent: tenderness, distention, guarding, rebound, rigidity - Extremities Exam Extremities exam: Present: normal inspection, full ROM. Absent: tenderness, pedal edema - Back Exam Back exam: Present: normal inspection, full ROM. Absent: tenderness - Neurological Exam Neurological exam: Present: alert, oriented X3 - Skin Skin exam: Present: warm, dry, intact, normal color Course Vital Signs Temperature 99.2 F 12/19/16 19:02 Pulse Rate 107 12/19/16 19:02 Respiratory Rate 18 12/19/16 19:02 Blood Pressure 145/82 12/19/16 19:02 O2 Sat by Pulse Oximetry 100 12/19/16 19:02 Temperature 99.2 F 12/19/16 19:02 Pulse Rate 107 12/19/16 19:02 Respiratory Rate 18 12/19/16 19:02 Blood Pressure 145/82 12/19/16 19:02 O2 Sat by Pulse Oximetry 100 12/19/16 19:02 Oxygen Delivery Oxygen Delivery Room Air Weakness - MDM Narrative Medical decision making narrative: The patient was mildly tachycardic on admission to the emergency department. EKG demonstrates a heart rate in the 80s. The patient was mildly hypoxic with an O2 sat of 89% on room air. The patient was placed on 2 L nasal cannula with an O2 sat of 90% this time. The patient continues to deny any shortness of breath or chest pain. The patient simply states he feels very weak. However on the patient. Given the patient's Wells criteria we will perform a CTA of the patient's chest with concern for possible PE. There is also concern for possible infection given the patient's glucose level as well as weak feeling. We will continue workup to include lactic acid, CBC, BMP, blood cultures. Chest x-ray is currently pending. Patient has no other complaints at this time and states that he just wants to go home because he does not feel well. - Lab Data Result diagrams: 12/19/16 20:10 Lab Results 12/19/16 12/19/16 12/19/16 Range/Units 19:07 20:10 20:10 WBC 8.7 (4.3-11.1) K/mcL RBC 3.58 L (4.19-5.50) M/mcL Hgb 11.1 L (12.9-16.9) g/dL Hct 32.2 L (37.5-50.1) % MCV 89.9 (83.0-100.0) fL MCH 31.0 (28.0-33.3) pg MCHC 34.5 (31.6-35.5) g/dL RDW 13.2 (11.5-14.5) % Plt Count 415 H (140-400) K/mcL MPV 8.6 L (9.4-12.4) fL Immature Gran % 1.6 (0-4) % Seg Neutrophils % 72.6 % Lymphocytes % 14.5 % Monocytes % 9.6 % Eosinophils % 1.4 % Basophils % 0.3 % Neutrophils # 6.3 (1.6-8.9) K/mcL Lymphocytes # 1.3 (0.6-4.6) K/mcL Monocytes # 0.8 (0.0-1.3) K/mcL Eosinophils # 0.1 (0.0-0.6) K/mcL Basophils # 0.0 (0.0-0.2) K/mcL POC Glucose 312 H (58-89) Lactic Acid 2.4 H (0.5-2.2) mmol/L Urine Color (Yellow) Urine Clarity (Clear) Urine pH (5.0-8.0) pH Units Ur Specific [place] (1.010-1.025) Urine Protein (Neg-Trace) mg/dL Urine Glucose (UA) (Normal) mg/dL Urine Ketones (Negative) mg/dL Urine Blood (Negative) Urine Nitrite (Negative) Urine Bilirubin (Negative) Urine Urobilinogen (Normal) mg/dL Ur Leukocyte Esterase (Negative) Ur Culture Indicated? (NO) 12/19/16 Range/Units 20:10 WBC (4.3-11.1) K/mcL RBC (4.19-5.50) M/mcL Hgb (12.9-16.9) g/dL Hct (37.5-50.1) % MCV (83.0-100.0) fL MCH (28.0-33.3) pg MCHC (31.6-35.5) g/dL RDW (11.5-14.5) % Plt Count (140-400) K/mcL MPV (9.4-12.4) fL Immature Gran % (0-4) % Seg Neutrophils % % Lymphocytes % % Monocytes % % Eosinophils % % Basophils % % Neutrophils # (1.6-8.9) K/mcL Lymphocytes # (0.6-4.6) K/mcL Monocytes # (0.0-1.3) K/mcL Eosinophils # (0.0-0.6) K/mcL Basophils # (0.0-0.2) K/mcL POC Glucose (58-89) Lactic Acid (0.5-2.2) mmol/L Urine Color Yellow (Yellow) Urine Clarity Clear (Clear) Urine pH 7.0 (5.0-8.0) pH Units Ur Specific [place] > 1.030 H (1.010-1.025) Urine Protein Negative (Neg-Trace) mg/dL Urine Glucose (UA) >=1000 H (Normal) mg/dL Urine Ketones Negative (Negative) mg/dL Urine Blood Negative (Negative) Urine Nitrite Negative (Negative) Urine Bilirubin Negative (Negative) Urine Urobilinogen 4.0 H (Normal) mg/dL Ur Leukocyte Esterase Negative (Negative) Ur Culture Indicated? NO (NO) - EKG Data EKG attestation: Yes I reviewed and interpreted this EKG. EKG results narrative: Heart rate 82 bpm. SD interval 124 ms. QTc 47 ms. Normal axis. Normal sinus rhythm. No ST elevation or ST depression noted. Nonspecific changes noted from EKG from 09/17/2010. No acute changes.
--- NOTE | 2016-12-19 19:51 | Emergency Department Note ---
START Narrative - START START: I examined this patient and my medical decision-making was reviewed with the INSULATION TECHNICIAN/PA/Advanced Practice Nurse/Resident Physician. I agree with the documented findings, disposition and treatment plan as described except to the extent set forth below. recent CABG within past week or so. here for weakness. workup cardiac standpoint, cxr, urinalysis, labs.
[2016-12-19] MEDS ORDERED: 0.9 % Sodium Chloride 500 ML IVC ONE (19:54)
[2016-12-19 20:18] LABS: Basophils % 0.3 %; Eosinophils # 0.1 K/mcL (0.0-0.6); Eosinophils % 1.4 %; Hematocrit 32.2 % (37.5-50.1); Hemoglobin 11.1 g/dL (12.9-16.9); Immature Granulocytes % 1.6 % (0-4); Lymphocytes # 1.3 K/mcL (0.6-4.6); Lymphocytes % 14.5 %; Mean Corpuscular HGB Conc 34.5 g/dL (31.6-35.5); Mean Corpuscular Volume 89.9 fL (83.0-100.0); Mean Platelet Volume 8.6 fL (9.4-12.4); Monocytes # 0.8 K/mcL (0.0-1.3); Monocytes % 9.6 %; Neutrophils # 6.3 K/mcL (1.6-8.9); Platelet Count 415 K/mcL (140-400); Red Blood Count 3.58 M/mcL (4.19-5.50); Red Cell Distribution Width 13.2 % (11.5-14.5); Segmented Neutrophils % 72.6 %
[2016-12-19 20:31] LABS: Bilirubin,Urine Negative (Negative); Blood,Urine Negative (Negative); Clarity,Urine Clear (Clear); Color,Urine Yellow (Yellow); Glucose,Urine (UA) >=1000 mg/dL (Normal); Ketones,Urine Negative (Negative); Leukocyte Esterase,Urine Negative (Negative); Nitrite,Urine Negative (Negative); Protein,Urine Negative (Neg-Trace); Specific Gravity,Urine > 1.030 (1.010-1.025)
[2016-12-19 20:32] LABS: BUN/Creatinine Ratio 15 (6-26); Blood Urea Nitrogen 11 mg/dL (8-26); Calcium 9.1 mg/dL (8.6-10.8); Carbon Dioxide 26 mEq/L (19-29); Chloride 100 mEq/L (98-109); Glucose 294 mg/dL (70-99); Osmolality,Calculated 292 (280-300); Potassium 4.5 mEq/L (3.5-4.5); Sodium 136 mEq/L (136-145); eGFR For African Americans > 60 (> 60); eGFR For Non-African Americans > 60 (> 60)
--- NOTE | 2016-12-19 22:04 | Emergency Department Note ---
Disposition Clinical Impression: Hyperglycemia, Weakness generalized, S/P CABG x 2 Disposition: Admitted As Inpatient Condition: Good Time of Disposition: 22:34 General Adult HPI - General Chief complaint: ED Weakness Stated complaint: Glucose 418 Time Seen by Provider: 12/19/16 19:14 Source: patient Mode of arrival: wheelchair Limitations: no limitations Nursing Notes Reviewed: Yes Vital Signs Reviewed: Yes - History of Present Illness Pain Scale: 0 - Related Data Home Medications Medication Instructions Recorded Confirmed Calcium Carbonate/Vitamin D3 1 tab PO DAILY 12/07/16 12/19/16 [Calcium 600-Vit D3 800 Tab] Duloxetine HCl [Cymbalta] 60 mg PO DAILY 12/07/16 12/19/16 Ibuprofen 800 mg PO Q8H PRN 12/07/16 12/19/16 Lisinopril [Zestril] 5 mg PO DAILY 12/07/16 12/19/16 metFORMIN [Glucophage] 1,000 mg PO BIDWM 12/07/16 12/19/16 Previous Rx's Medication Instructions Recorded Aspirin 81 mg PO DAILY #60 tab.chew 12/16/16 Atorvastatin [Lipitor] 40 mg PO HS #30 tablet 12/16/16 HYDROcodone/Acet 5/325 mg [[place] 1 tab PO Q4HR PRN #30 tablet 12/16/16 5-325 mg] Metoprolol [Lopressor] 12.5 mg PO BID #60 tablet 12/22/16 Allergies Allergy/AdvReac Type Severity Reaction Status Date / Time albuterol AdvReac See Verified 12/07/16 09:13 Comments Constitutional: Reports: weakness. Denies: fever, chills, weight change Eyes: Denies: eye pain, eye discharge, vision change ENT ED: Denies: ear pain, throat pain, dental pain, hearing loss, epistaxis, congestion, dysphagia Cardiovascular: Denies: chest pain, palpitations, dyspnea on exertion, edema, syncope, paroxysmal nocturnal dyspnea Respiratory: Denies: cough, dyspnea, wheezes, hemoptysis, stridor Gastrointestinal: Denies: abdominal pain, nausea, vomiting, diarrhea, constipation, hematemesis, melena, hematochezia Genitourinary: Denies: urgency, dysuria, frequency, hematuria Musculoskeletal: Denies: back pain, neck pain, arthralgia, myalgia Integumentary: Denies: rash, abrasion, lesions Neurological: Reports: weakness. Denies: headache, numbness, paresthesias, confusion, abnormal gait, vertigo Past Medical History - Past Medical History Medical history: Reports: coronary artery disease, diabetes, hyperlipidemia, hypertension, myocardial infarction Surgical history: Reports: angioplasty/stent, other (Cervical fusion) Psychiatric history: Reports: anxiety, depression - Social History Smoking Status: Former smoker Smokeless Tobacco Status: No Alcohol use: Reports: rarely Drug use: Reports: none Physical Exam - General Limitations: no limitations General appearance: alert, in no apparent distress Course Course Narrative: Patient was signed out to me by Dr. Christianson and Dr. Colin. They have started a workup on the patient. Please see their note for further. His workup did show an elevated troponin. This is trending down however I do not feel it is appropriately trending down. He is complaining of this generalized weakness has been present for 3 days and increasing shortness of breath. A CTA was normal at did show trace pleural effusion. His lactic acid is also elevated. We will admit patient to the hospitalist for his declining status after a CABG. He is agreeable to this. - Consultations Consultation #1: I spoke with Dr. Coffman on the phone. He is where the patient is here. He had no further suggestions. We will put in a consult for him. Time: 21:58 Consultation #2: Dr. Pedraza accepted patient in stable condition. Time: 22:18 Vital Signs Temperature 99.2 F 12/19/16 19:02 Pulse Rate 107 12/19/16 19:02 Respiratory Rate 18 12/19/16 19:02 Blood Pressure 145/82 12/19/16 19:02 O2 Sat by Pulse Oximetry 100 12/19/16 19:02 Temperature 98.5 F 12/22/16 04:30 Pulse Rate 68 12/22/16 04:30 Respiratory Rate 16 12/22/16 04:30 Blood Pressure 137/87 12/22/16 04:30 O2 Sat by Pulse Oximetry 96 12/22/16 08:16 Oxygen Delivery Oxygen Delivery Nasal Cannula Medical Decision Making - Lab Data Result diagrams: 12/21/16 04:48 12/21/16 04:48 Lab Results 12/19/16 12/19/16 12/19/16 Range/Units 19:07 20:10 20:10 WBC 8.7 (4.3-11.1) K/mcL RBC 3.58 L (4.19-5.50) M/mcL Hgb 11.1 L (12.9-16.9) g/dL Hct 32.2 L (37.5-50.1) % MCV 89.9 (83.0-100.0) fL MCH 31.0 (28.0-33.3) pg MCHC 34.5 (31.6-35.5) g/dL RDW 13.2 (11.5-14.5) % Plt Count 415 H (140-400) K/mcL MPV 8.6 L (9.4-12.4) fL Immature Gran % 1.6 (0-4) % Seg Neutrophils % 72.6 % Lymphocytes % 14.5 % Monocytes % 9.6 % Eosinophils % 1.4 % Basophils % 0.3 % Neutrophils # 6.3 (1.6-8.9) K/mcL Lymphocytes # 1.3 (0.6-4.6) K/mcL Monocytes # 0.8 (0.0-1.3) K/mcL Eosinophils # 0.1 (0.0-0.6) K/mcL Basophils # 0.0 (0.0-0.2) K/mcL Sodium 136 (136-145) mEq/L Potassium 4.5 (3.5-4.5) mEq/L Chloride 100 (98-109) mEq/L Carbon Dioxide 26 (19-29) mEq/L BUN 11 (8-26) mg/dL Creatinine 0.74 (0.72-1.25) mg/dL Est GFR ( Amer) > 60 (> 60) Est GFR (Non-Af Amer) > 60 (> 60) BUN/Creatinine Ratio 15 (6-26) Glucose 294 H (70-99) mg/dL POC Glucose 312 H (58-89) Calculated Osmolality 292 (280-300) Lactic Acid (0.5-2.2) mmol/L Calcium 9.1 (8.6-10.8) mg/dL Ionized Calcium (1.15-1.35) mmol/L Magnesium (1.6-2.6) mg/dL Creatine Kinase (30-200) Units/L Troponin I (0-0.03) ng/mL B-Natriuretic Peptide (0-100) pg/mL Urine Color (Yellow) Urine Clarity (Clear) Urine pH (5.0-8.0) pH Units Ur Specific [place] (1.010-1.025) Urine Protein (Neg-Trace) mg/dL Urine Glucose (UA) (Normal) mg/dL Urine Ketones (Negative) mg/dL Urine Blood (Negative) Urine Nitrite (Negative) Urine Bilirubin (Negative) Urine Urobilinogen (Normal) mg/dL Ur Leukocyte Esterase (Negative) Ur Culture Indicated? (NO) 12/19/16 12/19/16 12/19/16 Range/Units 20:10 20:10 20:15 WBC (4.3-11.1) K/mcL RBC (4.19-5.50) M/mcL Hgb (12.9-16.9) g/dL Hct (37.5-50.1) % MCV (83.0-100.0) fL MCH (28.0-33.3) pg MCHC (31.6-35.5) g/dL RDW (11.5-14.5) % Plt Count (140-400) K/mcL MPV (9.4-12.4) fL Immature Gran % (0-4) % Seg Neutrophils % % Lymphocytes % % Monocytes % % Eosinophils % % Basophils % % Neutrophils # (1.6-8.9) K/mcL Lymphocytes # (0.6-4.6) K/mcL Monocytes # (0.0-1.3) K/mcL Eosinophils # (0.0-0.6) K/mcL Basophils # (0.0-0.2) K/mcL Sodium (136-145) mEq/L Potassium (3.5-4.5) mEq/L Chloride (98-109) mEq/L Carbon Dioxide (19-29) mEq/L BUN (8-26) mg/dL Creatinine (0.72-1.25) mg/dL Est GFR ( Amer) (> 60) Est GFR (Non-Af Amer) (> 60) BUN/Creatinine Ratio (6-26) Glucose (70-99) mg/dL POC Glucose (58-89) Calculated Osmolality (280-300) Lactic Acid 2.4 H (0.5-2.2) mmol/L Calcium (8.6-10.8) mg/dL Ionized Calcium (1.15-1.35) mmol/L Magnesium (1.6-2.6) mg/dL Creatine Kinase (30-200) Units/L Troponin I 0.23 H* (0-0.03) ng/mL B-Natriuretic Peptide (0-100) pg/mL Urine Color Yellow (Yellow) Urine Clarity Clear (Clear) Urine pH 7.0 (5.0-8.0) pH Units Ur Specific [place] > 1.030 H (1.010-1.025) Urine Protein Negative (Neg-Trace) mg/dL Urine Glucose (UA) >=1000 H (Normal) mg/dL Urine Ketones Negative (Negative) mg/dL Urine Blood Negative (Negative) Urine Nitrite Negative (Negative) Urine Bilirubin Negative (Negative) Urine Urobilinogen 4.0 H (Normal) mg/dL Ur Leukocyte Esterase Negative (Negative) Ur Culture Indicated? NO (NO) 12/19/16 12/19/16 12/20/16 Range/Units 20:15 23:59 01:02 WBC (4.3-11.1) K/mcL RBC (4.19-5.50) M/mcL Hgb (12.9-16.9) g/dL Hct (37.5-50.1) % MCV (83.0-100.0) fL MCH (28.0-33.3) pg MCHC (31.6-35.5) g/dL RDW (11.5-14.5) % Plt Count (140-400) K/mcL MPV (9.4-12.4) fL Immature Gran % (0-4) % Seg Neutrophils % % Lymphocytes % % Monocytes % % Eosinophils % % Basophils % % Neutrophils # (1.6-8.9) K/mcL Lymphocytes # (0.6-4.6) K/mcL Monocytes # (0.0-1.3) K/mcL Eosinophils # (0.0-0.6) K/mcL Basophils # (0.0-0.2) K/mcL Sodium (136-145) mEq/L Potassium (3.5-4.5) mEq/L Chloride (98-109) mEq/L Carbon Dioxide (19-29) mEq/L BUN (8-26) mg/dL Creatinine (0.72-1.25) mg/dL Est GFR ( Amer) (> 60) Est GFR (Non-Af Amer) (> 60) BUN/Creatinine Ratio (6-26) Glucose (70-99) mg/dL POC Glucose 249 H (58-89) Calculated Osmolality (280-300) Lactic Acid (0.5-2.2) mmol/L Calcium (8.6-10.8) mg/dL Ionized Calcium (1.15-1.35) mmol/L Magnesium (1.6-2.6) mg/dL Creatine Kinase (30-200) Units/L Troponin I 0.21 H* (0-0.03) ng/mL B-Natriuretic Peptide 678 H (0-100) pg/mL Urine Color (Yellow) Urine Clarity (Clear) Urine pH (5.0-8.0) pH Units Ur Specific [place] (1.010-1.025) Urine Protein (Neg-Trace) mg/dL Urine Glucose (UA) (Normal) mg/dL Urine Ketones (Negative) mg/dL Urine Blood (Negative) Urine Nitrite (Negative) Urine Bilirubin (Negative) Urine Urobilinogen (Normal) mg/dL Ur Leukocyte Esterase (Negative) Ur Culture Indicated? (NO) 12/20/16 12/20/16 12/20/16 Range/Units 01:02 01:02 05:53 WBC 8.3 (4.3-11.1) K/mcL RBC 3.43 L (4.19-5.50) M/mcL Hgb 10.3 L (12.9-16.9) g/dL Hct 31.3 L (37.5-50.1) % MCV 91.3 (83.0-100.0) fL MCH 30.0 (28.0-33.3) pg MCHC 32.9 (31.6-35.5) g/dL RDW 13.1 (11.5-14.5) % Plt Count 407 H (140-400) K/mcL MPV 8.5 L (9.4-12.4) fL Immature Gran % (0-4) % Seg Neutrophils % % Lymphocytes % % Monocytes % % Eosinophils % % Basophils % % Neutrophils # (1.6-8.9) K/mcL Lymphocytes # (0.6-4.6) K/mcL Monocytes # (0.0-1.3) K/mcL Eosinophils # (0.0-0.6) K/mcL Basophils # (0.0-0.2) K/mcL Sodium 136 (136-145) mEq/L Potassium 4.2 (3.5-4.5) mEq/L Chloride 99 (98-109) mEq/L Carbon Dioxide 28 (19-29) mEq/L BUN 10 (8-26) mg/dL Creatinine 0.74 (0.72-1.25) mg/dL Est GFR ( Amer) > 60 (> 60) Est GFR (Non-Af Amer) > 60 (> 60) BUN/Creatinine Ratio 14 (6-26) Glucose 262 H (70-99) mg/dL POC Glucose (58-89) Calculated Osmolality 290 (280-300) Lactic Acid (0.5-2.2) mmol/L Calcium 8.8 (8.6-10.8) mg/dL Ionized Calcium (1.15-1.35) mmol/L Magnesium (1.6-2.6) mg/dL Creatine Kinase (30-200) Units/L Troponin I 0.19 H* (0-0.03) ng/mL B-Natriuretic Peptide (0-100) pg/mL Urine Color (Yellow) Urine Clarity (Clear) Urine pH (5.0-8.0) pH Units Ur Specific [place] (1.010-1.025) Urine Protein (Neg-Trace) mg/dL Urine Glucose (UA) (Normal) mg/dL Urine Ketones (Negative) mg/dL Urine Blood (Negative) Urine Nitrite (Negative) Urine Bilirubin (Negative) Urine Urobilinogen (Normal) mg/dL Ur Leukocyte Esterase (Negative) Ur Culture Indicated? (NO) 12/20/16 12/20/16 12/20/16 Range/Units 05:53 06:07 09:39 WBC (4.3-11.1) K/mcL RBC (4.19-5.50) M/mcL Hgb (12.9-16.9) g/dL Hct (37.5-50.1) % MCV (83.0-100.0) fL MCH (28.0-33.3) pg MCHC (31.6-35.5) g/dL RDW (11.5-14.5) % Plt Count (140-400) K/mcL MPV (9.4-12.4) fL Immature Gran % (0-4) % Seg Neutrophils % % Lymphocytes % % Monocytes % % Eosinophils % % Basophils % % Neutrophils # (1.6-8.9) K/mcL Lymphocytes # (0.6-4.6) K/mcL Monocytes # (0.0-1.3) K/mcL Eosinophils # (0.0-0.6) K/mcL Basophils # (0.0-0.2) K/mcL Sodium (136-145) mEq/L Potassium (3.5-4.5) mEq/L Chloride (98-109) mEq/L Carbon Dioxide (19-29) mEq/L BUN (8-26) mg/dL Creatinine (0.72-1.25) mg/dL Est GFR ( Amer) (> 60) Est GFR (Non-Af Amer) (> 60) BUN/Creatinine Ratio (6-26) Glucose (70-99) mg/dL POC Glucose 259 H 305 H (58-89) Calculated Osmolality (280-300) Lactic Acid (0.5-2.2) mmol/L Calcium (8.6-10.8) mg/dL Ionized Calcium (1.15-1.35) mmol/L Magnesium 1.5 L (1.6-2.6) mg/dL Creatine Kinase (30-200) Units/L Troponin I (0-0.03) ng/mL B-Natriuretic Peptide (0-100) pg/mL Urine Color (Yellow) Urine Clarity (Clear) Urine pH (5.0-8.0) pH Units Ur Specific [place] (1.010-1.025) Urine Protein (Neg-Trace) mg/dL Urine Glucose (UA) (Normal) mg/dL Urine Ketones (Negative) mg/dL Urine Blood (Negative) Urine Nitrite (Negative) Urine Bilirubin (Negative) Urine Urobilinogen (Normal) mg/dL Ur Leukocyte Esterase (Negative) Ur Culture Indicated? (NO) 12/20/16 12/20/16 12/20/16 Range/Units 11:34 13:50 15:00 WBC (4.3-11.1) K/mcL RBC (4.19-5.50) M/mcL Hgb (12.9-16.9) g/dL Hct (37.5-50.1) % MCV (83.0-100.0) fL MCH (28.0-33.3) pg MCHC (31.6-35.5) g/dL RDW (11.5-14.5) % Plt Count (140-400) K/mcL MPV (9.4-12.4) fL Immature Gran % (0-4) % Seg Neutrophils % % Lymphocytes % % Monocytes % % Eosinophils % % Basophils % % Neutrophils # (1.6-8.9) K/mcL Lymphocytes # (0.6-4.6) K/mcL Monocytes # (0.0-1.3) K/mcL Eosinophils # (0.0-0.6) K/mcL Basophils # (0.0-0.2) K/mcL Sodium (136-145) mEq/L Potassium (3.5-4.5) mEq/L Chloride (98-109) mEq/L Carbon Dioxide (19-29) mEq/L BUN (8-26) mg/dL Creatinine (0.72-1.25) mg/dL Est GFR ( Amer) (> 60) Est GFR (Non-Af Amer) (> 60) BUN/Creatinine Ratio (6-26) Glucose (70-99) mg/dL POC Glucose 224 H 287 H (58-89) Calculated Osmolality (280-300) Lactic Acid (0.5-2.2) mmol/L Calcium (8.6-10.8) mg/dL Ionized Calcium 1.20 (1.15-1.35) mmol/L Magnesium (1.6-2.6) mg/dL Creatine Kinase 41 (30-200) Units/L Troponin I (0-0.03) ng/mL B-Natriuretic Peptide (0-100) pg/mL Urine Color (Yellow) Urine Clarity (Clear) Urine pH (5.0-8.0) pH Units Ur Specific [place] (1.010-1.025) Urine Protein (Neg-Trace) mg/dL Urine Glucose (UA) (Normal) mg/dL Urine Ketones (Negative) mg/dL Urine Blood (Negative) Urine Nitrite (Negative) Urine Bilirubin (Negative) Urine Urobilinogen (Normal) mg/dL Ur Leukocyte Esterase (Negative) Ur Culture Indicated? (NO) 12/20/16 12/20/16 Range/Units 15:18 15:39 WBC (4.3-11.1) K/mcL RBC (4.19-5.50) M/mcL Hgb (12.9-16.9) g/dL Hct (37.5-50.1) % MCV (83.0-100.0) fL MCH (28.0-33.3) pg MCHC (31.6-35.5) g/dL RDW (11.5-14.5) % Plt Count (140-400) K/mcL MPV (9.4-12.4) fL Immature Gran % (0-4) % Seg Neutrophils % % Lymphocytes % % Monocytes % % Eosinophils % % Basophils % % Neutrophils # (1.6-8.9) K/mcL Lymphocytes # (0.6-4.6) K/mcL Monocytes # (0.0-1.3) K/mcL Eosinophils # (0.0-0.6) K/mcL Basophils # (0.0-0.2) K/mcL Sodium (136-145) mEq/L Potassium (3.5-4.5) mEq/L Chloride (98-109) mEq/L Carbon Dioxide (19-29) mEq/L BUN (8-26) mg/dL Creatinine (0.72-1.25) mg/dL Est GFR ( Amer) (> 60) Est GFR (Non-Af Amer) (> 60) BUN/Creatinine Ratio (6-26) Glucose (70-99) mg/dL POC Glucose 235 H (58-89) Calculated Osmolality (280-300) Lactic Acid 2.3 H (0.5-2.2) mmol/L Calcium (8.6-10.8) mg/dL Ionized Calcium (1.15-1.35) mmol/L Magnesium (1.6-2.6) mg/dL Creatine Kinase (30-200) Units/L Troponin I (0-0.03) ng/mL B-Natriuretic Peptide (0-100) pg/mL Urine Color (Yellow) Urine Clarity (Clear) Urine pH (5.0-8.0) pH Units Ur Specific [place] (1.010-1.025) Urine Protein (Neg-Trace) mg/dL Urine Glucose (UA) (Normal) mg/dL Urine Ketones (Negative) mg/dL Urine Blood (Negative) Urine Nitrite (Negative) Urine Bilirubin (Negative) Urine Urobilinogen (Normal) mg/dL Ur Leukocyte Esterase (Negative) Ur Culture Indicated? (NO) Attestation Statement - Attestation Attestation: I, Naseem Carrizales, examined this patient and my medical decision-making was reviewed with the BPO SPECIALIST/PA/Advanced Practice Nurse/Resident Physician. I agree with the documented findings, disposition and treatment plan as described except to the extent set forth below. 65 yo male received in sign out from Dr. Colin, pending CTA, labs, and disposition. pt reports a recent CABG one week ago, he was discharged with a down-trending troponin and returned today with increasing weakness and fatigue. CTA did not show PE or other surgical pathology. Pt will be admitted for elevated troponin and increasing weakness.
--- NOTE | 2016-12-19 22:56 | Internal Med History&Physical ---
Date of Encounter: 12/20/16 Time of Encounter: 22:40 Assessment and Plan (1) Weakness generalized Current visit: Yes Status: Acute Generalized weakness and fatigue with mild dizziness and lightheadedness - unclear etiology Possible orthostatic hypotension-orthostatic vital signs to be obtained Cardiac court monitor, trend troponin EKG normal sinus rhythm CT angiogram of the chest negative for PE and negative for acute infiltrate, bibasilar atelectasis present and mild cardiomegaly Continue all home medications. (2) S/P CABG x 2 Current visit: Yes Status: Chronic Recent non-ST elevation [place] status post CABG 2 Continue aspirin and statin and home medications Troponin is 0.23-we will trend BN peptide 628 Dr. Coffman has been counsulted from the ED (3) Diabetes Current visit: No Status: Chronic Hypoglycemia, [id number], type II Continue insulin sliding scale and Levemir. 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 Qualifiers: Hypertension type: essential hypertension Qualified Code(s): I10 - Essential (primary) hypertension (6) DVT prophylaxis Current visit: Yes Status: Acute Continue heparin subcutaneous Internal Medicine - H&P: HPI Chief complaint: Generalized weakness Admitted From: Emergency Dept History of present illness: Mr. Medina is a 65 year old male with past medical history of coronary artery disease with status post recent CABG, hypertension, SC, type 2 diabetes and hyperlipidemia. He presents to the ED with complaints of generalized weakness and fatigue. His is at bedside and states that patient has not been feeling feeling well for the past 1-2 days. Patient was discharged about 3 days ago after a recent CABG. Patient denies chest pain denies shortness of breath denies palpitations, denies vomiting or nausea, no abdominal pain or diarrhea and no headache. Patient complains of mild lightheadedness and mild dizziness when he stands up. His states patient has been feeling sleepy and has not been able to do his regular work today. Patient states he feels fatigued and does not feel like getting out of bed. Initial workup in the ED revealed elevated blood glucose and elevated troponin at 0.23. Troponin will be trended. Dr. Coffman has been contacted by the ED physician. He will see the patient in the morning. Lactic acid is 2.4. Patient does not have a fever and white count is normal and he is not tachycardic. EKG shows normal sinus rhythm. Generalized weakness is of unclear etiology. Orthostatic vitals will be obtained. Patient and his have been explained about his condition and plan of care. They understood and agreed. No unanswered questions. Patient is at high risk because of recent CABG surgery. CODE STATUS full code. Past Med Surg Social Fam HX - Past Medical History Medical history: coronary artery disease, diabetes, hyperlipidemia, hypertension , myocardial infarction Psychiatric history: anxiety, depression - Past Surgical History Surgical History: angioplasty/stent, other (Cervical fusion) - Social History Smoking Status: Former smoker Smokeless Tobacco Status: No Alcohol use: rarely Drug use: none - Family History Mother Living Status: Hx Family Endocrine Disorder: Yes (Diabetes) Internal Medicine - H&P: Meds Calcium Carbonate/Vitamin D3 [Calcium 600-Vit D3 800 Tab] 1 tab PO DAILY [History] Duloxetine HCl [Cymbalta] 60 mg PO DAILY 12/07/16 [History] Ibuprofen 800 mg PO Q8H PRN 12/07/16 [History] Lisinopril [Zestril] 5 mg PO DAILY 12/07/16 [History] metFORMIN [Glucophage] 1,000 mg PO BIDWM 12/07/16 [History] Aspirin 81 mg PO DAILY #60 tab.chew 12/16/16 [Rx] Atorvastatin [Lipitor] 40 mg PO HS #30 tablet 12/16/16 [Rx] HYDROcodone/Acet 5/325 mg [[place] 5-325 mg] 1 tab PO Q4HR PRN #30 tablet [Rx] Metoprolol [Lopressor] 50 mg PO BID #60 tablet 12/16/16 [Rx] Allergies albuterol Adverse Reaction (Verified 12/07/16 09:13) See Comments HIVES, SWELLING All Systems PM: A 10-system review of systems was performed and is negative for pertinent findings except as documented above in the HPI. - Constitutional Constitutional: as per HPI, fatigue, weakness - EENT Eyes: no loss of vision - Cardiovascular Cardiovascular ROS IM: no chest pain, no diaphoresis, no dyspnea, no dyspnea on exertion, no orthopnea - Respiratory Respiratory: cough, no dyspnea, no hemoptysis, no dyspnea on exertion, no chest congestion - Gastrointestinal Gastrointestinal: no abdominal pain, no cramping, no diarrhea, no nausea - Neurological Neurological ROS: weakness, no abnormal gait, no abnormal speech, no focal weakness, no loss of vision, no numbness - Constitutional Vitals: Temp Pulse Resp BP Pulse Ox 99.2 F 82 16 153/87 95 12/19/16 19:02 12/19/16 21:52 12/19/16 22:36 12/19/16 22:36 12/19/16 21:52 General appearance: Present: A&O X 3, no acute distress, answers questions appropriately Exam: generalized weakness - Head Head exam: Present: atraumatic - ENT ENT exam: Present: mucous membranes moist - Neck Neck exam general surgery: Present: supple - Respiratory Respiratory exam: Present: CTAB. Absent: rhonchi, wheezes - Cardiovascular Cardiovascular exam: Present: RRR, +S1, +S2 - GI/Abdominal GI/Abdominal exam: Present: soft. Absent: distended, tenderness - Extremities Exam Extremities exam: Present: radial pulses palpable and symetrical. Absent: cyanotic, pedal edema - Neurological Exam Neurological exam: Present: alert, oriented X3, no focal deficits Internal Med - H&P Results - Labs CBC & Chem 7: 12/19/16 20:10 12/19/16 20:10
[2016-12-19] MEDS ORDERED: Naloxone 0.4 MG/ML INJ IVP PRN (23:07)
[2016-12-19] MEDS ORDERED: Ondansetron 4 MG/2 ML VIAL IVP PRN (23:07)
[2016-12-19] MEDS ORDERED: Acetaminophen 325 MG TABLET PO PRN (23:07)
[2016-12-19] MEDS ORDERED: Dextrose Gel 15 GM PO PRN ×2 (23:11)
[2016-12-19] MEDS ORDERED: D5% in Water 1,000 ML IVC PRN (23:11)
[2016-12-19] MEDS ORDERED: *HR* Dextrose 50 % in Water (Syg) 50 ML SYRINGE IVP PRN (23:11)
[2016-12-20] MEDS: Insulin LISPRO 300 UNITS/3 ML VIAL SQ SCH ×5 (00:04→16:40)
[2016-12-20 01:54] LABS: Hematocrit 31.3 % (37.5-50.1); Hemoglobin 10.3 g/dL (12.9-16.9); Mean Corpuscular HGB Conc 32.9 g/dL (31.6-35.5); Mean Corpuscular Volume 91.3 fL (83.0-100.0); Mean Platelet Volume 8.5 fL (9.4-12.4); Platelet Count 407 K/mcL (140-400); Red Blood Count 3.43 M/mcL (4.19-5.50); Red Cell Distribution Width 13.1 % (11.5-14.5)
[2016-12-20 01:58] LABS: BUN/Creatinine Ratio 14 (6-26); Blood Urea Nitrogen 10 mg/dL (8-26); Calcium 8.8 mg/dL (8.6-10.8); Carbon Dioxide 28 mEq/L (19-29); Chloride 99 mEq/L (98-109); Glucose 262 mg/dL (70-99); Osmolality,Calculated 290 (280-300); Potassium 4.2 mEq/L (3.5-4.5); Sodium 136 mEq/L (136-145); eGFR For African Americans > 60 (> 60); eGFR For Non-African Americans > 60 (> 60)
[2016-12-20] MEDS: *HR* Heparin 5,000 UNIT/ML VIAL SQ SCH ×2 (06:29→17:23)
[2016-12-20] MEDS: Famotidine 20 MG TABLET PO SCH ×2 (07:51→20:45)
[2016-12-20] MEDS: Aspirin 81 MG TAB.CHEW PO SCH (07:51)
[2016-12-20] MEDS ORDERED: Insulin DETEMIR 100 UNIT/ML X5UNITS SQ SCH (09:00)
--- NOTE | 2016-12-20 09:57 | Cardiothoracic Consult Note ---
Date of Encounter: 12/20/16 Time of Encounter: 09:54 Assessment and Plan (1) CAD (coronary artery disease) Current Visit: No Status: Acute The patient seems to be recovering well from his CABG2. His constitutional symptoms may be due to beta brando effect and I would recommend decreasing or discontinuing this medication. He has no evidence of sternal wound infection. The assessment and plan as outlined above was discussed with the patient and/or family members who expressed understanding and agreement. All questions were answered. Qualifiers: Coronary Disease-Associated Artery/Lesion type: [place] artery [place] vs. transplanted heart: [place] heart Associated angina: with stable angina Qualified Code(s): I25.118 - Atherosclerotic heart disease of [place] coronary artery with other forms of angina pectoris - History of Present Illness Consult date: 12/19/16 Requesting physician: Kvng Molina Consult reason: Postoperative evaluation. Chief complaint: Dizziness and weakness History of present illness: Mr. Medina is a 65 year old type II diabetic, hypertensive man with known CAD and hypercholesterolemia. The patient underwent previous ramus stent placement in 2011 and did well until the last several months. At that time he began feeling fatigue. During the last week he developed vague, nonradiating substernal chest pain associated shortness of breath, dyspnea on exertion, dizziness, and fatigue. The chest pain would worsen with activity and resolve somewhat with rest. He describes the pain as different than the pain he had with his previous OK. He was evaluated at [facility] last night and found to have elevated troponin I levels consistent with an acute NSTEMI he was treated medically and transferred [facility] for further care. The patient underwent a transthoracic echocardiogram this morning which was reportedly normal. The spoke with the encoding clerk and he quickly read the study , stating that he had normal left ventricular function and normal right ventricular size and function with mild pulmonary hypertension. The official report will follow. The patient underwent cardiac catheterization was found to have severe three-vessel CAD. In particular the patient has a 40% distal left main lesion, a 99% proximal LAD lesion, a 70% mid to distal LAD lesion, a 99% ramus in-stent restenosis, a 90% proximal OM1 lesion, a 40% mid RCA lesion, and a 99% mid to distal right AV lesion (small vessel). The patient has been recommended for CABG. The patient underwent CABG2 on December 11, 2016. His postoperative course was uncomplicated and he was discharged home on POD#5. At home he developed dizziness and lightheadedness as well as overall weakness. He is evaluated in the emergency department last night for a chest CT was performed. There was no evidence of pericardial effusion and he had trace bilateral pleural effusions. The patient was admitted for evaluation. Past Med Surg Social Fam HX - Past Medical History Medical history: coronary artery disease, diabetes, hyperlipidemia, hypertension , myocardial infarction Psychiatric history: anxiety, depression - Past Surgical History Surgical History: angioplasty/stent, coronary bypass (CABG) - Social History Smoking Status: Former smoker Smokeless Tobacco Status: No Alcohol use: rarely Drug use: none Current living situation: Home - Independent Activity Level: Independent ambulation Recent Out of Country Travel Within the Last 8 Weeks: No Exposure or Possible Exposure to Illness During Travel: No - Family History Mother Living Status: Age at : 93 Cause of : Pancreatitis Hx Family Endocrine Disorder: Yes (Diabetes) Medications and Allergies Calcium Carbonate/Vitamin D3 [Calcium 600-Vit D3 800 Tab] 1 tab PO DAILY [History] Duloxetine HCl [Cymbalta] 60 mg PO DAILY 12/07/16 [History] Ibuprofen 800 mg PO Q8H PRN 12/07/16 [History] Lisinopril [Zestril] 5 mg PO DAILY 12/07/16 [History] metFORMIN [Glucophage] 1,000 mg PO BIDWM 12/07/16 [History] Aspirin 81 mg PO DAILY #60 tab.chew 12/16/16 [Rx] Atorvastatin [Lipitor] 40 mg PO HS #30 tablet 12/16/16 [Rx] HYDROcodone/Acet 5/325 mg [[place] 5-325 mg] 1 tab PO Q4HR PRN #30 tablet [Rx] Metoprolol [Lopressor] 50 mg PO BID #60 tablet 12/16/16 [Rx] Allergies albuterol Adverse Reaction (Verified 12/07/16 09:13) See Comments HIVES, SWELLING All Systems Review: A 10-system review of systems was performed and is negative for pertinent findings except as documented above in the HPI. Physical Examination Vital Signs, Last 4 Hours Temp Pulse Resp BP Pulse Ox 12/20/16 07:34 98.6 F 76 16 139/81 96 General: Conversant, No Apparent Distress Neck: No JVD, Normal carotid pulses Cardiac: Reg Rate and Rhythm, Normal S1 and S2, No Murmur Lungs: Normal Breath Sounds, No Wheeze, Rales, Rhonchi Neuro: Alert and responsive, No focal deficits noted Vascular: Normal capillary refill Abdomen: Soft, Non-tender Musculoskeletal: No Chest Wall Tenderness, Other (Sternum stable to both deep breathing and coughing.) Extremities: No Clubbing, No Cyanosis, No Edema Results 12/20/16 01:02 12/20/16 01:02 Lab Results, Last 24 hours 12/20/16 12/20/16 12/20/16 01:02 01:02 01:02 WBC 8.3 Hgb 10.3 L Hct 31.3 L Plt Count 407 H Sodium 136 Potassium 4.2 Chloride 99 Carbon Dioxide 28 BUN 10 Creatinine 0.74 Glucose 262 H Calcium 8.8 Troponin I 0.21 H* 12/20/16 05:53 WBC Hgb Hct Plt Count Sodium Potassium Chloride Carbon Dioxide BUN Creatinine Glucose Calcium Troponin I 0.19 H* Consult Discharge Plan - Plan Referrals: NO,PCP [Non-Partnered Physician] - Declan Vick DO [Primary Care Provider] -
[2016-12-20] MEDS ORDERED: Ibuprofen 800 MG TABLET PO ONE (10:50)
--- NOTE | 2016-12-20 12:01 | Electrocardiograph Report ---
[address] [address] Test Date: 2016-12-19 Pat Name: Rogelio Medina Department: 102 Room: 2NE20 Gender: M Court Administrator: Angelica : 1950 Requested By: Jhonathan Christianson Order Number: [id number] Reading MD: Toney Caldwell MD Measurements Intervals [place] Rate: 82 P: 44 TX: 124 QRS: 19 QRSD: 100 T: 107 QT: 368 QTc: 407 Interpretive Statements SINUS RHYTHM Electronically Signed On 12-20-2016 11:59:56 EDT by Toney Caldwell MD
--- NOTE | 2016-12-20 13:59 | Internal Med Progress Note ---
<Jack Lopez - Last Filed: 12/20/16 14:02> Date of Encounter: 12/20/16 Time of Encounter: 13:57 - Assessment and plan (1) Weakness generalized Current Visit: Yes Status: Acute Assessment and plan: At this point etiology of patient's symptoms are unclear. Does not appear to be related to the patient's recent CABG. Electrolytes are normal, magnesium was not checked so magnesium is pending. Patient does have episodes of diaphoresis and twitching that appear after meals and blood sugars actually elevated at these times. Patient's symptoms could also be related to hyperglycemia. Patient could also be secondary to beta brando side effects. We will decrease metoprolol to 12.5 twice a day. Have increased the basal insulin and added preprandial insulin. (2) S/P CABG x 2 Current Visit: Yes Status: Chronic Assessment and plan: Seen and evaluated by cardiothoracic surgery feel the patient is recovering well from his CABG one week ago. No evidence of sternal wound infection. (3) Diabetes Current Visit: No Status: Chronic Assessment and plan: Patient only takes metformin at home. Hemoglobin A1c was 10.8 2 weeks ago. Have increased basal insulin and add preprandial insulin. Continue to monitor Qualifiers: Diabetes mellitus type: type 2 Diabetes mellitus complication status: with circulatory complication Diabetes mellitus complication detail: with other circulatory complications Diabetes mellitus cytogenetic technician insulin use: without senior care use Qualified Code(s): E11.59 - Type 2 diabetes mellitus with other circulatory complications (4) Hyperlipidemia Current Visit: No Status: Chronic Assessment and plan: Continue statin. Qualifiers: Hyperlipidemia type: pure hypercholesterolemia Qualified Code(s): E78.00 - Pure hypercholesterolemia, unspecified; E78.0 - Pure hypercholesterolemia (5) Hypertension Current Visit: No Status: Chronic Assessment and plan: Blood pressure under good control. Will decrease the beta brando as discussed above. Continue to monitor. Qualifiers: Hypertension type: essential hypertension Qualified Code(s): I10 - Essential (primary) hypertension (6) DVT prophylaxis Current Visit: Yes Status: Acute Assessment and plan: Heparin 5000 units subcutaneous twice a day - Subjective Interval history: Patient seen and examined at bedside. Patient states he feels okay today. He has no complaints at this time. He does state that he had an episode of diaphoresis this morning that were similarly episodes that he was having at home. - Constitutional Vitals: Temp Pulse Resp BP Pulse Ox 98.0 F 67 18 132/67 99 12/20/16 13:53 12/20/16 13:53 12/20/16 13:53 12/20/16 13:53 12/20/16 13:53 General appearance: Present: A&O X 3, no acute distress, answers questions appropriately - Respiratory Respiratory exam: Present: CTAB. Absent: rales, rhonchi, wheezes - Cardiovascular Cardiovascular exam: Present: bradycardia (regular). Absent: gallop, rubs, systolic murmur - GI/Abdominal GI/Abdominal exam: Present: normal bowel sounds, soft. Absent: distended, tenderness - Extremities Exam Extremities exam: Present: warm. Absent: pedal edema, tenderness - Neurological Exam Neurological exam: Present: alert, CN II-XII intact, oriented X3, no focal deficits - Skin Additional comments: Sternal wound clean dry and intact with Steri-Strips present. No evidence of bleeding, drainage, erythema, infection. Internal Medicine: Result - Labs CBC & Chem 7: 12/20/16 01:02 12/20/16 01:02 Labs: Short CBC 12/20/16 Range/Units 01:02 WBC 8.3 (4.3-11.1) K/mcL Hgb 10.3 L (12.9-16.9) g/dL Hct 31.3 L (37.5-50.1) % Plt Count 407 H (140-400) K/mcL BMP 12/20/16 01:02 Sodium 136 Potassium 4.2 Chloride 99 Carbon Dioxide 28 BUN 10 Creatinine 0.74 Glucose 262 H Calcium 8.8 Cardiac Enzymes 12/20/16 12/20/16 Range/Units 01:02 05:53 Troponin I 0.21 H* 0.19 H* (0-0.03) ng/mL Consult Discharge Plan - Plan Referrals: NO,PCP [Non-Partnered Physician] - Declan Vick DO [Primary Care Provider] - <Kvng Molina P - Last Filed: 12/20/16 14:48> Date of Encounter: 12/20/16 - Constitutional Vitals: Temp Pulse Resp BP Pulse Ox 98.0 F 67 18 132/67 99 12/20/16 13:53 12/20/16 13:53 12/20/16 13:53 12/20/16 13:53 12/20/16 13:53 Internal Medicine: Result - Labs CBC & Chem 7: 12/20/16 01:02 12/20/16 01:02 Labs: Short CBC 12/20/16 Range/Units 01:02 WBC 8.3 (4.3-11.1) K/mcL Hgb 10.3 L (12.9-16.9) g/dL Hct 31.3 L (37.5-50.1) % Plt Count 407 H (140-400) K/mcL BMP 12/20/16 01:02 Sodium 136 Potassium 4.2 Chloride 99 Carbon Dioxide 28 BUN 10 Creatinine 0.74 Glucose 262 H Calcium 8.8 Cardiac Enzymes 12/20/16 12/20/16 Range/Units 01:02 05:53 Troponin I 0.21 H* 0.19 H* (0-0.03) ng/mL - Attending Attestation I examined this patient and my medical decision-making was reviewed with the VICE PRESIDENT REGULATORY/PA/Advanced Practice Nurse/Resident Physician. I agree with the documented findings, disposition and treatment plan as described except to the extent set forth below. recommendations from CTS is greatly appreciated.
[2016-12-20] MEDS ORDERED: Magnesium Sulfate 2 GM in D5% in Water 100 ML IVPB ONE (15:02)
[2016-12-20 15:19] LABS: Ionized Calcium 1.2 mmol/L (1.15-1.35)
[2016-12-20] MEDS ORDERED: 0.9 % Sodium Chloride 500 ML IVC ONE (15:45)
[2016-12-20] MEDS ORDERED: Melatonin 3 MG TABLET PO PRN (16:54)
[2016-12-20] MEDS ORDERED: 0.9 % Sodium Chloride 500 ML IVC SCH (17:00)
--- NOTE | 2016-12-20 17:49 | Electrocardiograph Report ---
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
[2016-12-20] MEDS: Piperacillin/Tazobactam 3.375 GM in D5% in Water (Mini-Bag+) 100 ML IVPB SCH (19:14)
[2016-12-20] MEDS: Insulin DETEMIR 100 UNIT/ML X5UNITS SQ SCH (20:45)
[2016-12-21] MEDS: Piperacillin/Tazobactam 3.375 GM in D5% in Water (Mini-Bag+) 100 ML IVPB SCH ×3 (02:29→17:35)
[2016-12-21 04:58] LABS: Basophils % 0.5 %; Eosinophils # 0.2 K/mcL (0.0-0.6); Hematocrit 30.2 % (37.5-50.1); Hemoglobin 10.2 g/dL (12.9-16.9); Immature Platelets 0.9 % (1.1-6.1); Lymphocytes # 1.6 K/mcL (0.6-4.6); Lymphocytes % 20.5 %; Mean Corpuscular HGB Conc 33.8 g/dL (31.6-35.5); Mean Corpuscular Hemoglobin 30.3 pg (28.0-33.3); Mean Corpuscular Volume 89.6 fL (83.0-100.0); Mean Platelet Volume 8.4 fL (9.4-12.4); Monocytes # 0.8 K/mcL (0.0-1.3); Monocytes % 10.3 %; Neutrophils # 5.2 K/mcL (1.6-8.9); Platelet Count 490 K/mcL (140-400); Red Blood Count 3.37 M/mcL (4.19-5.50); Red Cell Distribution Width 13.2 % (11.5-14.5); Segmented Neutrophils % 65.7 %
[2016-12-21 05:11] LABS: BUN/Creatinine Ratio 17 (6-26); Blood Urea Nitrogen 13 mg/dL (8-26); Calcium 8.7 mg/dL (8.6-10.8); Carbon Dioxide 28 mEq/L (19-29); Chloride 102 mEq/L (98-109); Glucose 226 mg/dL (70-99); Magnesium 1.8 mg/dL (1.6-2.6); Osmolality,Calculated 289 (280-300); Potassium 4.2 mEq/L (3.5-4.5); Sodium 136 mEq/L (136-145); eGFR For African Americans > 60 (> 60); eGFR For Non-African Americans > 60 (> 60)
[2016-12-21] MEDS: *HR* Heparin 5,000 UNIT/ML VIAL SQ SCH ×2 (05:13→17:34)
--- NOTE | 2016-12-21 07:54 | Cardiothoracic Progress Note ---
Date of Encounter: 12/21/16 Time of Encounter: 07:53 - Assessment and plan (1) S/P CABG x 2 Current Visit: Yes Status: Chronic The assessment and plan as outlined above was discussed with the patient and/or family members who expressed understanding and agreement. All questions were answered. CT scan of the chest reveals small bilateral pleural effusions and no signs of infection. The sternum is healing well. CT scan of the abdomen reveals no acute processes. The patient's white blood cell count is normal. He is doing well and is okay for discharge from my standpoint. I will see him in the office 4 weeks after his open heart surgery. He already has an appointment. - Subjective Interval history: The patient states that he feels better and has no complaints. Vital Signs, Last 4 Hours Pulse Resp BP Pulse Ox 12/21/16 07:00 71 16 146/74 92 Oxgyen Flow Rate Oxygen Flow Rate (LPM) 2 Lungs are clear to percussion and auscultation. Heart is in a normal sinus rhythm. All incisions are healing well without signs of infection and the sternum is stable. - Labs 12/21/16 04:48 12/21/16 04:48 Lab Results, Last 24 hours 12/21/16 12/21/16 04:48 04:48 WBC 7.9 Hgb 10.2 L Hct 30.2 L Plt Count 490 H Sodium 136 Potassium 4.2 Chloride 102 Carbon Dioxide 28 BUN 13 Creatinine 0.75 Glucose 226 H Calcium 8.7 Magnesium 1.8 Consult Discharge Plan - Plan Referrals: NO,PCP [Non-Partnered Physician] - Declan Vick DO [Primary Care Provider] -
[2016-12-21] MEDS: Insulin LISPRO 300 UNITS/3 ML VIAL SQ SCH ×6 (08:11→17:34)
[2016-12-21] MEDS: Insulin DETEMIR 100 UNIT/ML X5UNITS SQ SCH ×2 (08:11→22:56)
[2016-12-21] MEDS: Famotidine 20 MG TABLET PO SCH ×2 (08:12→22:56)
[2016-12-21] MEDS: Aspirin 81 MG TAB.CHEW PO SCH (08:12)
--- NOTE | 2016-12-21 11:00 | Internal Med Progress Note ---
<JohnJack Becerra - Last Filed: 12/21/16 10:58> Date of Encounter: 12/21/16 Time of Encounter: 10:58 - Assessment and plan (1) Weakness generalized Current Visit: Yes Status: Acute Assessment and plan: Improve from yesterday. Likely related to a combination of beta brando side effects and dehydration. Does not appear to be related to the patient's recent CABG. Electrolytes are normal, magnesium repleated yesterday. Episodes of diaphoresis and twitching that appear after meals have resolved. Beta brando was decreased and patient was given fluids and he responded well. Patient did have a mild lactic acidosis on presentation which has resolved. CT abdomen was negative. Empiric abx started yesterday will be continued for now. Continue to monitor (2) S/P CABG x 2 Current Visit: Yes Status: Chronic Assessment and plan: Seen and evaluated by cardiothoracic surgery feel the patient is recovering well from his CABG one week ago. No evidence of sternal wound infection. (3) Diabetes Current Visit: No Status: Chronic Assessment and plan: Patient only takes metformin at home. Hemoglobin A1c was 10.8 2 weeks ago. Have increased basal insulin and add preprandial insulin. 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 Qualifiers: Hyperlipidemia type: pure hypercholesterolemia Qualified Code(s): E78.00 - Pure hypercholesterolemia, unspecified; E78.0 - Pure hypercholesterolemia (5) Hypertension Current Visit: No Status: Chronic Assessment and plan: Blood pressure under good control. Will decrease the beta brando as discussed above. Continue to monitor. Qualifiers: Hypertension type: essential hypertension Qualified Code(s): I10 - Essential (primary) hypertension (6) DVT prophylaxis Current Visit: Yes Status: Acute Assessment and plan: Heparin 5000 units subcutaneous twice a day - Subjective Interval history: Patient seen and examined at bedside. Patient states he feels better today. He has no complaints at this time. He denies any episodes of diaphoresis and twitching since yesterday - Constitutional Vitals: Temp Pulse Resp BP Pulse Ox 98.5 F 71 16 146/74 92 12/21/16 00:07 12/21/16 07:00 12/21/16 07:00 12/21/16 07:00 12/21/16 09:22 General appearance: Present: A&O X 3, no acute distress, answers questions appropriately - Respiratory Respiratory exam: Present: CTAB. Absent: rales, rhonchi, wheezes - Cardiovascular Cardiovascular exam: Present: RRR. Absent: bradycardia, gallop, rubs, systolic murmur Additional comments: Surgical sternal wound present with steri-strips in place. No drainage or bleeding noted, no evidence of infection - GI/Abdominal GI/Abdominal exam: Present: normal bowel sounds, soft. Absent: distended, tenderness - Extremities Exam Extremities exam: Present: warm. Absent: pedal edema, tenderness - Neurological Exam Neurological exam: Present: alert, CN II-XII intact, oriented X3, no focal deficits Internal Medicine: Result - Labs CBC & Chem 7: 12/21/16 04:48 12/21/16 04:48 Labs: Short CBC 12/21/16 Range/Units 04:48 WBC 7.9 (4.3-11.1) K/mcL Hgb 10.2 L (12.9-16.9) g/dL Hct 30.2 L (37.5-50.1) % Plt Count 490 H (140-400) K/mcL Neutrophils # 5.2 (1.6-8.9) K/mcL BMP 12/21/16 04:48 Sodium 136 Potassium 4.2 Chloride 102 Carbon Dioxide 28 BUN 13 Creatinine 0.75 Glucose 226 H Calcium 8.7 Consult Discharge Plan - Plan Referrals: NO,PCP [Non-Partnered Physician] - Declan Vick DO [Primary Care Provider] - <Kvng Molina P - Last Filed: 12/21/16 16:05> Date of Encounter: 12/21/16 - Constitutional Vitals: Temp Pulse Resp BP Pulse Ox 98.5 F 71 16 146/74 92 12/21/16 00:07 12/21/16 07:00 12/21/16 07:00 12/21/16 07:00 12/21/16 09:22 Internal Medicine: Result - Labs CBC & Chem 7: 12/21/16 04:48 12/21/16 04:48 Labs: Short CBC 12/21/16 Range/Units 04:48 WBC 7.9 (4.3-11.1) K/mcL Hgb 10.2 L (12.9-16.9) g/dL Hct 30.2 L (37.5-50.1) % Plt Count 490 H (140-400) K/mcL Neutrophils # 5.2 (1.6-8.9) K/mcL BMP 12/21/16 04:48 Sodium 136 Potassium 4.2 Chloride 102 Carbon Dioxide 28 BUN 13 Creatinine 0.75 Glucose 226 H Calcium 8.7 - Attending Attestation I examined this patient and my medical decision-making was reviewed with the DRYWALL FINISHER/PA/Advanced Practice Nurse/Resident Physician. I agree with the documented findings, disposition and treatment plan as described except to the extent set forth below. Likely home in next 1-2 days. Input from cardiothoracic surgery appreciated.
[2016-12-22] MEDS: Piperacillin/Tazobactam 3.375 GM in D5% in Water (Mini-Bag+) 100 ML IVPB SCH (02:15)
[2016-12-22] MEDS: *HR* Heparin 5,000 UNIT/ML VIAL SQ SCH (05:42)
[2016-12-22 06:33] VITALS: BP 137/87
--- NOTE | 2016-12-22 07:52 | Discharge Summary ---
<Jack Lopez - Last Filed: 12/22/16 07:50> Date of Encounter: 12/22/16 Time of Encounter: 07:50 - Discharge Diagnosis (1) Weakness generalized Priority: Primary Status: Resolved (2) S/P CABG x 2 Priority: Secondary Status: Chronic (3) Diabetes Priority: Secondary Status: Chronic Qualifiers: Diabetes mellitus type: type 2 Diabetes mellitus complication status: with circulatory complication Diabetes mellitus complication detail: with other circulatory complications Diabetes mellitus technician terminal and repeater insulin use: without technician terminal and repeater use Qualified Code(s): E11.59 - Type 2 diabetes mellitus with other circulatory complications (4) Hyperlipidemia Priority: Secondary Status: Chronic Qualifiers: Hyperlipidemia type: pure hypercholesterolemia Qualified Code(s): E78.00 - Pure hypercholesterolemia, unspecified; E78.0 - Pure hypercholesterolemia (5) Hypertension Priority: Secondary Status: Chronic Qualifiers: Hypertension type: essential hypertension Qualified Code(s): I10 - Essential (primary) hypertension (6) DVT prophylaxis Priority: Secondary Status: Inactive - Discharge Medications Prescriptions: Metoprolol [Lopressor] 12.5 mg PO BID #60 tablet Home Medications: Calcium Carbonate/Vitamin D3 [Calcium 600-Vit D3 800 Tab] 1 tab PO DAILY [History] Duloxetine HCl [Cymbalta] 60 mg PO DAILY 12/07/16 [History] Ibuprofen 800 mg PO Q8H PRN 12/07/16 [History] Lisinopril [Zestril] 5 mg PO DAILY 12/07/16 [History] metFORMIN [Glucophage] 1,000 mg PO BIDWM 12/07/16 [History] Aspirin 81 mg PO DAILY #60 tab.chew 12/16/16 [Rx] Atorvastatin [Lipitor] 40 mg PO HS #30 tablet 12/16/16 [Rx] HYDROcodone/Acet 5/325 mg [[place] 5-325 mg] 1 tab PO Q4HR PRN #30 tablet [Rx] Metoprolol [Lopressor] 12.5 mg PO BID #60 tablet 12/22/16 [Rx] Allergies/Adverse Reactions: Allergies albuterol Adverse Reaction (Verified 12/07/16 09:13) See Comments HIVES, SWELLING Date of admission: 12/20/16 17:01 Primary care physician: Declan Vick Consults: Cardiothoracic surgery Discharging clinician: Jack Lopez Anticipated date of discharge: 12/22/16 - Patient Status Disposition: Home, Self-Care Condition: Good Functional capacity at discharge: independent ambulation Overall status at discharge: patient is progressing back to baseline - Discharge Instructions Instructions: Myocardial Infarction (DC), Diabetes Mellitus Type 2 in Adults ( DC), Chronic Hypertension (DC) Follow Up With: SHADI,PCP [Non-Partnered Physician] - Giovany Kingston MD [Partnered Physician] - (follow up as previously directed with Dr Kingston regarding bypass surgery post op follow up) Declan Vick DO [Primary Care Provider] - (Follow up in 1 week, please call and make and appointment on Saturday) Forms: Work/School Release Additional Instructions: Please follow up with your primary care physician in one week. Please call Dr. Kingston's office to make follow-up appointment. Please decrease your metoprolol to 12.5 mg twice a day. Please resume your home medications. Please check your blood sugars at least twice a day and bring these readings to your primary care physician's appointment. Please return for any new or worsening symptoms. - Diet and Activity Activity: increase activity as tolerated Diet: diabetic diet, low salt diet Interval History: Patient seen and examined at bedside. Patient states he feels pretty good. Patient has no complaints at this time. Patient is asking to go home. Hospital course: Mr. Medina is a 65 year old male with history of coronary artery disease status post CABG approximately 10 days ago presented with generalized weakness. Patient was apparently having episodes where he would become weak and diaphoretic with twitching. Workup revealed a mild lactic acidosis but was otherwise unremarkable. CT scan of the chest and abdomen was performed which was negative. the patient's symptoms were felt to be related to combination of dehydration and beta brando side effect. The patient was given IV fluids and his lactic acid resolved. Metoprolol was decreased from 50 mg twice a day to 12.5 mg twice a day. Once his changes were made the patient did not have anymore episodes similar to the ones that he had prior to admission. Patient was walked around the unit and had no difficulty. Patient will be discharged home in stable condition. - Time Spent with Patient Total time spent providing and/or coordinating discharge services: - Constitutional Vitals: Temp Pulse Resp BP Pulse Ox 98.5 F 68 16 137/87 94 12/22/16 04:30 12/22/16 04:30 12/22/16 04:30 12/22/16 04:30 12/22/16 04:30 General appearance: Present: A&O X 3, no acute distress, answers questions appropriately - Respiratory Respiratory exam: Present: CTAB. Absent: rales, rhonchi, wheezes - Cardiovascular Cardiovascular exam: Present: RRR. Absent: gallop, rubs, systolic murmur Additional comments: Surgical sternal wound present with Steri-Strips. No drainage or bleeding noted. No signs of infection. - GI/Abdominal GI/Abdominal exam: Present: normal bowel sounds, soft. Absent: distended, tenderness - Extremities Exam Extremities exam: Present: warm. Absent: pedal edema, tenderness - Neurological Exam Neurological exam: Present: alert, CN II-XII intact, oriented X3, no focal deficits <Kvng Molina P - Last Filed: 12/22/16 11:20> Date of Encounter: 12/22/16 Date of admission: 12/20/16 17:01 Primary care physician: [facility] Hospital course: Mr. Medina is a 65 year old male - Time Spent with Patient Total time spent providing and/or coordinating discharge services: - Constitutional Vitals: Temp Pulse Resp BP Pulse Ox 98.5 F 68 16 137/87 96 12/22/16 04:30 12/22/16 04:30 12/22/16 04:30 12/22/16 04:30 12/22/16 08:16 - Attending Attestation I examined this patient and my medical decision-making was reviewed with the WIRE BENDER HAND/PA/Advanced Practice Nurse/Resident Physician. I agree with the documented findings, disposition and treatment plan as described except to the extent set forth below. Home today. Follow-up with primary care in 1-2 weeks. Follow-up with cardiothoracic surgery in 3 weeks
[2016-12-22] MEDS: Insulin LISPRO 300 UNITS/3 ML VIAL SQ SCH ×2 (08:10)
[2016-12-22] MEDS: Famotidine 20 MG TABLET PO SCH (08:16)
[2016-12-22] MEDS: Insulin DETEMIR 100 UNIT/ML X5UNITS SQ SCH (08:16)
[2016-12-22] MEDS: Aspirin 81 MG TAB.CHEW PO SCH (08:17)
--- NOTE | 2016-12-22 09:35 | Cardiothoracic Progress Note ---
Date of Encounter: 12/22/16 Time of Encounter: 09:34 - Assessment and plan (1) S/P CABG x 2 Current Visit: Yes Status: Chronic The patient is okay for discharge from my standpoint. I will see him in the office in approximately 3 weeks. - Subjective Interval history: The patient has no complaints and feels good. Vital Signs, Last 4 Hours Pulse Ox 12/22/16 08:16 96 Oxgyen Flow Rate Oxygen Flow Rate (LPM) 0 Clinical Data, last 8 Hours Output, Urine Amount 600 Output, Urine Amount 300 Output, Urine Amount 950 Weight 12/20/16 12/21/16 12/22/16 23:59 23:59 23:59 Weight 86 kg Lungs are clear to percussion and auscultation. Heart is in a normal sinus rhythm. All incisions are healing well without signs of infection and the sternum is stable. - Labs 12/21/16 04:48 12/21/16 04:48 Consult Discharge Plan - Plan Additional Instructions: Please follow up with your primary care physician in one week. Please call Dr. Kingston's office to make follow-up appointment. Please decrease your metoprolol to 12.5 mg twice a day. Please resume your home medications. Please check your blood sugars at least twice a day and bring these readings to your primary care physician's appointment. Please return for any new or worsening symptoms. Referrals: NO,PCP [Non-Partnered Physician] - Declan Vick DO [Primary Care Provider] - (Follow up in 1 week) Prescriptions: Metoprolol [Lopressor] 12.5 mg PO BID #60 tablet
== END 2016-12-22 10:50 | disposition home or self-care (01) | DRG 641 ==
LOC: 2NENU 19:01 → EMEROO 19:01 → 2NENU 23:03
PROVIDERS: ADMIT Internal Medicine Sleep Medicine; ATTEND Internal Medicine

== ENCOUNTER 2017-07-26 16:14 | Observation (INO) ==
[2017-07-26 17:03] LABS: Basophils # 0.1 K/mcL (0.0-0.2); Basophils % 0.3 %; Eosinophils # 0.1 K/mcL (0.0-0.6); Eosinophils % 0.7 %; Hematocrit 46.2 % (37.5-50.1); Hemoglobin 15.8 g/dL (12.9-16.9); Immature Granulocytes % 0.5 % (0-4); Lymphocytes # 1.8 K/mcL (0.6-4.6); Lymphocytes % 11.7 %; Mean Corpuscular HGB Conc 34.2 g/dL (31.6-35.5); Mean Corpuscular Hemoglobin 30.2 pg (28.0-33.3); Mean Corpuscular Volume 88.2 fL (83.0-100.0); Monocytes # 1.1 K/mcL (0.0-1.3); Monocytes % 7.4 %; Neutrophils # 11.8 K/mcL (1.6-8.9); Platelet Count 260 K/mcL (140-400); Red Blood Count 5.24 M/mcL (4.19-5.50); Red Cell Distribution Width 12.5 % (11.5-14.5); Segmented Neutrophils % 79.4 %
[2017-07-26 17:26] LABS: BUN/Creatinine Ratio 20 (6-26); Blood Urea Nitrogen 21 mg/dL (8-23); Calcium 9.7 mg/dL (8.6-10.3); Carbon Dioxide 26 mEq/L (23-29); Chloride 97 mEq/L (98-107); Glucose 315 mg/dL (70-105); Osmolality,Calculated 293 (280-300); Potassium 4.3 mEq/L (3.5-5.1); Sodium 134 mEq/L (136-145); eGFR For African Americans > 60 (> 60); eGFR For Non-African Americans > 60 (> 60)
[2017-07-26] MEDS ORDERED: 0.9 % Sodium Chloride 1,000 ML IVC ONE (17:46)
--- NOTE | 2017-07-26 17:52 | Emergency Department Note ---
Disposition Clinical Impression: Near syncope Disposition: Admitted As Inpatient Condition: Good Referrals: NONE,PCP [Primary Care Provider] - Forms: ED Satisfaction Letter General Adult HPI - General Chief complaint: ED Arrhythmia/Palpitations Stated complaint: High HR,Dizziness Time Seen by Provider: 07/26/17 17:31 Source: patient, family Mode of arrival: private vehicle Limitations: no limitations Nursing Notes Reviewed: Yes Vital Signs Reviewed: Yes - History of Present Illness HPI Narrative: 66-year-old male history of coronary artery bypass graft, hypertension, diabetes , hyperlipidemia who presents to the ER with a chief complaint of near syncope and tachycardia. Patient reports that since Saturday he said felt like he is going to pass out when he stands up. He reports that his vision starts to turn black. He does not lose consciousness. No history of this in the past. He denies any chest pain but has felt short of breath and also recounted the sweats and chills. He was seen by his cardiology provider today for they checked blood work and told him to come to the ER felt worse. He also endorses to me that he has been out of his metoprolol for 2 weeks and has been trying to call to get it refilled and for the pharmacy to have it. No other complaints. Pt Subjective Complaint: Dizziness, elevated heart rate Onset (ago): day(s) Pain Scale: 0 Improves with: nothing Worsens with: movement Associated symptoms: Reports: shortness of breath. Denies: chest pain Treatments Prior to Arrival: none - Related Data Home Medications Medication Instructions Recorded Confirmed Calcium Carbonate/Vitamin D3 1 tab PO DAILY 12/07/16 12/19/16 [Calcium 600-Vit D3 800 Tab] Duloxetine HCl [Cymbalta] 60 mg PO DAILY 12/07/16 12/19/16 Ibuprofen 800 mg PO Q8H PRN 12/07/16 12/19/16 Lisinopril [Zestril] 5 mg PO DAILY 12/07/16 12/19/16 metFORMIN [Glucophage] 1,000 mg PO BIDWM 12/07/16 12/19/16 Previous Rx's Medication Instructions Recorded Aspirin 81 mg PO DAILY #60 tab.chew 12/16/16 Atorvastatin [Lipitor] 40 mg PO HS #30 tablet 12/16/16 HYDROcodone/Acet 5/325 mg [[place] 1 tab PO Q4HR PRN #30 tablet 12/16/16 5-325 mg] Metoprolol [Lopressor] 12.5 mg PO BID #60 tablet 12/22/16 Allergies Allergy/AdvReac Type Severity Reaction Status Date / Time albuterol AdvReac See Verified 07/26/17 17:36 Comments All systems ED: reviewed and negative except as stated. Constitutional: Denies: fever Cardiovascular: Denies: chest pain, palpitations Respiratory: Reports: dyspnea. Denies: cough Gastrointestinal: Denies: abdominal pain, nausea, vomiting Past Medical History - Past Medical History Attestation: Yes The following information was validated with the patient. Source: patient Medical history: Reports: coronary artery disease, diabetes, hyperlipidemia, hypertension, myocardial infarction Surgical history: Reports: angioplasty/stent, other (Cervical fusion) Psychiatric history: Reports: anxiety, depression - Social History Smoking Status: Former smoker Smokeless Tobacco Status: No Alcohol use: Reports: none Drug use: Reports: none Physical Exam - General Limitations: no limitations General appearance: alert, in no apparent distress - Head Head exam: atraumatic, normocephalic - Eye Eye exam: Present: normal appearance - ENT ENT exam: normal exam - Neck Neck exam: Present: normal inspection, full ROM - Chest Chest inspection: Present: normal inspection, symmetric chest wall rise - Respiratory Respiratory exam: Present: normal lung sounds bilaterally - Cardiovascular Cardiovascular exam: Present: normal rhythm, tachycardia, normal heart sounds - Abdominal Exam Abdominal exam: Present: soft, Non-Tender. Absent: tenderness - Extremities Exam Extremities exam: Present: normal inspection, full ROM - Expanded Upper Extremity Exam Shoulder exam: Present: normal inspection, full ROM Arm exam: Present: normal inspection, full ROM Elbow exam: Present: normal inspection, full ROM Forearm/Wrist exam: Present: normal inspection, full ROM Hand exam: Present: normal inspection, full ROM - Expanded Lower Extremity Exam Hip/Pelvis exam: Present: normal inspection, full ROM Upper leg exam: Present: normal inspection, full ROM Knee exam: Present: normal inspection, full ROM Lower leg exam: Present: normal inspection, full ROM Ankle exam: Present: normal inspection, full ROM Foot/toe exam: Present: normal inspection, full ROM - Skin Skin exam: Present: warm Course Course Narrative: Patient seen and examined. Noted to be tachycardic here. He was intermittently trigeminy in the room back to sinus tachycardia. His symptoms may well be secondary to not taking his metoprolol for 2 weeks. However we will get an EKG, labs including troponin and a CT for evaluation of pulmonary embolism given his near syncope and tachycardia. Vital Signs Temperature 97.7 F 07/26/17 16:23 Pulse Rate 119 07/26/17 16:23 Respiratory Rate 18 07/26/17 16:23 Blood Pressure 136/88 07/26/17 16:23 O2 Sat by Pulse Oximetry 98 07/26/17 16:23 Temperature 97.7 F 07/26/17 16:23 Pulse Rate 105 07/26/17 19:05 Respiratory Rate 20 07/26/17 19:05 Blood Pressure 142/81 07/26/17 19:05 O2 Sat by Pulse Oximetry 97 07/26/17 19:05 Oxygen Delivery Oxygen Delivery Room Air Medical Decision Making - MDM Narrative Medical decision making narrative: 66-year-old male presents to the ER with a chief complaint of dizziness for the last 5 days. Extensive cardiac history. Saw his cardiology provider today. His EKG here shows sinus tachycardia. Imaging and labs reviewed without acute derangements. CT negative for pulmonary embolism. Troponin within normal limits. Patient given IV fluids with improvement of his tachycardia. He is admitted to the hospitalist service for near syncope. He has been out of his metoprolol for 2 weeks. - Lab Data Lab results reviewed: Yes I reviewed the patient's lab results. Result diagrams: 07/26/17 16:51 07/26/17 16:51 Lab Results 07/26/17 07/26/17 07/26/17 Range/Units 16:51 16:51 16:51 WBC 14.9 H (4.3-11.1) K/mcL RBC 5.24 (4.19-5.50) M/mcL Hgb 15.8 (12.9-16.9) g/dL Hct 46.2 (37.5-50.1) % MCV 88.2 (83.0-100.0) fL MCH 30.2 (28.0-33.3) pg MCHC 34.2 (31.6-35.5) g/dL RDW 12.5 (11.5-14.5) % Plt Count 260 (140-400) K/mcL MPV 9.0 L (9.4-12.4) fL Immature Gran % 0.5 (0-4) % Seg Neutrophils % 79.4 % Lymphocytes % 11.7 % Monocytes % 7.4 % Eosinophils % 0.7 % Basophils % 0.3 % Neutrophils # 11.8 H (1.6-8.9) K/mcL Lymphocytes # 1.8 (0.6-4.6) K/mcL Monocytes # 1.1 (0.0-1.3) K/mcL Eosinophils # 0.1 (0.0-0.6) K/mcL Basophils # 0.1 (0.0-0.2) K/mcL Sodium 134 L (136-145) mEq/L Potassium 4.3 (3.5-5.1) mEq/L Chloride 97 L (98-107) mEq/L Carbon Dioxide 26 (23-29) mEq/L BUN 21 (8-23) mg/dL Creatinine 1.03 (0.70-1.30) mg/dL Est GFR ( Amer) > 60 (> 60) Est GFR (Non-Af Amer) > 60 (> 60) BUN/Creatinine Ratio 20 (6-26) Glucose 315 H (70-105) mg/dL Calculated Osmolality 293 (280-300) Calcium 9.7 (8.6-10.3) mg/dL Troponin I < 0.03 (< 0.04) ng/mL TSH 1.369 (0.340-5.600) mcIU/mL - Radiology Data Radiology results reviewed: Yes I reviewed the patient's radiology results. Chest X-Ray 07/26/17 16:31 IMPRESSION: No acute disease. D/ / Maryan Gonzalez Cha, MD / Maryan Gonzalez Cha, MD Interpreting Provider: Maryan Gonzalez Cha, MD Chest CTA 07/26/17 17:46 IMPRESSION: No evidence of pulmonary embolism or acute pulmonary abnormality. D/ / Jered Espinal MD / Jered Espinal MD Interpreting Provider: Jered Espinal MD - EKG Data EKG #1 EKG attestation: Yes I reviewed and interpreted this EKG. EKG results narrative: EKG demonstrates sinus tachycardia with a rate of 125. Normal axis. Normal intervals. Normal R-wave progression. No gross ST elevations or depressions. No acute ischemic findings. Attestation Statement - Attestation Attestation: I examined this patient and my medical decision-making was reviewed with the Resident Physician. I agree with the documented findings, disposition and treatment plan as described except to the extent set forth below. Findings consistent with dizziness, possibly related to symptomatic hypoglycemia. We will start IV fluids. No evidence of pulmonary embolism. Additionally found have mild leukocytosis. We will admit for further evaluation.
[2017-07-26 18:18] LABS: Thyroid Stimulating Hormone 1.369 mcIU/mL (0.340-5.600)
[2017-07-26] MEDS ORDERED: Naloxone 0.4 MG/ML INJ IVP PRN (20:58)
[2017-07-26] MEDS ORDERED: D5% in Water 1,000 ML IVC PRN (20:58)
[2017-07-26] MEDS ORDERED: *HR* Promethazine 25 MG/ML VIAL IVP PRN (20:58)
[2017-07-26] MEDS ORDERED: Ondansetron ODT 4 MG TAB.RAPDIS SL PRN (20:58)
[2017-07-26] MEDS ORDERED: Dextrose Gel 15 GM/37.5 ML TUBE PO PRN ×2 (20:58)
[2017-07-26] MEDS ORDERED: *HR* Dextrose 50 % in Water (Syg) 50 ML SYRINGE IVP PRN (20:58)
[2017-07-26] MEDS ORDERED: Acetaminophen 325 MG TABLET PO PRN (20:58)
[2017-07-26] MEDS ORDERED: Nitroglycerin 0.4 MG TAB.SUBL SL PRN (21:07)
--- NOTE | 2017-07-26 21:09 | Internal Med History&Physical ---
<Markel Silver - Last Filed: 07/26/17 21:54> Date of Encounter: 07/26/17 Time of Encounter: 20:45 Assessment and Plan (1) Near syncope Current visit: Yes Status: Acute Denies fall or actual incidence of syncope giving patients significant cardiac history, patient will need to be admitted for monitoring and further work up patient has been off of Lopressor for several weeks, will restart and monitor patient on telemetry and continuous pulse ox troponin and EKG was negative in ED; no chest pains or other anginal equivalent symptoms patient did have intermittent auto-resolving trigeminy on monitor will get orthostatic vitals, ECHO, carotid duplex, and check Mg++ cont IVF at maintenance rate may need cardiology consultation in AM (2) Cognitive change Current visit: Yes Status: Acute acute attentional deficit with worsening forgetfulness over last several weeks per most likely related to acute problem (most likely postural hypotension/ tachydysrhythmia), but may represent early findings of dementia CT of the head noncontrast negative for acute abnormality neurologic exam is overall completely benign and patient is alert and oriented to person, place, and time (3) CAD (coronary artery disease) Current visit: No Status: Acute History of LHC & CABG in November of 2016 No chest pain, diaphoresis, subjective palpitations, shortness of breath, vomiting, or pedal edema noted by patient Plan as above Qualifiers: Coronary Disease-Associated Artery/Lesion type: [place] artery [place] vs. transplanted heart: k[place]ia heart Associated angina: with stable angina Qualified Code(s): I25.118 - Atherosclerotic heart disease of [place] coronary artery with other forms of angina pectoris (4) Diabetes Current visit: No Status: Chronic Serum Glucose 315 in ED Will start on MD-SS, FSBG TID-AC-HS, and diabetic/cardiac diet NPO at midnight pending possible consultation or further evaluation Qualifiers: Diabetes mellitus type: type 2 Diabetes mellitus complication status: with circulatory complication Diabetes mellitus complication detail: with other circulatory complications Diabetes mellitus mcfp insulin use: without mcfp use Qualified Code(s): E11.59 - Type 2 diabetes mellitus with other circulatory complications (5) Hypertension Current visit: No Status: Chronic monitor as above no significant elevations thus far restarted patient's Lopressor Qualifiers: Hypertension type: essential hypertension Qualified Code(s): I10 - Essential (primary) hypertension (6) DVT prophylaxis Current visit: No Status: Inactive subcutaneous heparin Internal Medicine - H&P: HPI Chief complaint: presyncope & "fast heart beat -- sent by my manager target" Admitted From: Emergency Dept Plans for Post Hospital Care: Home History of present illness: Mr. Medina is a 66 year old male with medical history of coronary artery disease, hypertension, diabetes mellitus [id number], hyperlipidemia, and history of LHC/CABG. Though patient is alert and oriented x3, patient frequently fails to attend to the conversation at hand and is a less than fully reliable historian upon initial encounter. Patient tells me that for the past 3 or 4 weeks, has felt generally fatigued as if he at times could pass out. Patient told the ED resident that he had been having these symptoms for 3 or 4 days. Apparently, patient states feels weak and lightheaded when he stands up too quickly and often times has similar symptoms when he is at rest doing nothing at all. Patient's affirms the ongoing nature of the symptoms over the last couple of weeks. Patient also states that he had seen his manager target within the last day or 2 and was found to have tachydysrhythmia; patient states manager target insisted on patient being further evaluated in the emergency department. states patient has been forgetful recently and also reaffirms the patient will often fail to attend to conversations in his presence and will not remember much of what is just been said in front of him. Had LHC and CABG in November of 2016 at [facility]. Furthermore, patient usually takes Lopressor, but has been out of this medicine for 2 weeks. ED work up overall negative including EKG, troponin, CXR, and CTA for PE. Head CT non-contrast pending per ED orders. Past Med Surg Social Fam HX - Past Medical History Attestation: Yes The following information was validated with the patient. Medical history: coronary artery disease, diabetes, hyperlipidemia, hypertension , myocardial infarction Psychiatric history: anxiety, depression - Past Surgical History Surgical History: angioplasty/stent, other (Cervical fusion) - Social History Smoking Status: Former smoker Smokeless Tobacco Status: No Alcohol use: none Drug use: none - Family History Mother Living Status: Hx Family Endocrine Disorder: Yes (Diabetes) Internal Medicine - H&P: Meds Calcium Carbonate/Vitamin D3 [Calcium 600-Vit D3 800 Tab] 1 tab PO DAILY [History] Duloxetine HCl [Cymbalta] 60 mg PO DAILY 12/07/16 [History] Ibuprofen 800 mg PO Q8H PRN 12/07/16 [History] Lisinopril [Zestril] 5 mg PO DAILY 12/07/16 [History] metFORMIN [Glucophage] 1,000 mg PO BIDWM 12/07/16 [History] Aspirin 81 mg PO DAILY #60 tab.chew 12/16/16 [Rx] Atorvastatin [Lipitor] 40 mg PO HS #30 tablet 12/16/16 [Rx] Metoprolol [Lopressor] 12.5 mg PO BID #60 tablet 12/22/16 [Rx] Linagliptin [Tradjenta] 5 mg PO DAILY 07/26/17 [History] Nitroglycerin [Nitrostat] 0.4 mg SL Q5M PRN 07/26/17 [History] 3 Allergy/AdvReac Type Severity Reaction Status Date / Time albuterol AdvReac See Verified 07/26/17 17:36 Comments All Systems PM: As described in HPI - Constitutional Vitals: Temp Pulse Resp BP Pulse Ox 97.7 F 105 20 142/81 97 07/26/17 16:23 07/26/17 19:05 07/26/17 19:05 07/26/17 19:05 07/26/17 19:05 Exam: CONSTITUTIONAL: Alert and oriented X3, well-nourished, well appearing, in no apparent distress HEAD: Normocephalic; atraumatic EYES: PERRL, no scleral icterus, no drainage, no conjunctival injection Oropharynx: pink/moist RESP: NRD without use of accessory musculature, CTA b/l with no wheezes/rales/ rhonchi CARD: regular irregularity with positive after every 3rd beat; concurrent with apparent tried Telma on manager cardiac. Otherwise, no murmurs or gallops. Try Telma is intermittent and nonpersistent; patient is otherwise RRR ABD: soft, non-tender SKIN: normal appearance, no pallor/diaphoresis,mottling,jaundice,cyanosis EXT: DP/Rad pulses 2+ and symmetrical; no pedal edema NEURO: grounders 3 through 12 intact, no focal motorsensory deficits, reflexes 1 -2+ to b/l patellar tendon, negative clonus with rapid pedal dorsiflexion PSYCH: : affect, does routinely fail to attend to present conversation, does answer questions appropriately, is clearly alert and oriented to person, place, and time. Internal Med - H&P Results - Labs CBC & Chem 7: 07/26/17 16:51 07/26/17 16:51 Labs: Short CBC 07/26/17 Range/Units 16:51 WBC 14.9 H (4.3-11.1) K/mcL Hgb 15.8 (12.9-16.9) g/dL Hct 46.2 (37.5-50.1) % Plt Count 260 (140-400) K/mcL Neutrophils # 11.8 H (1.6-8.9) K/mcL BMP 07/26/17 16:51 Sodium 134 L Potassium 4.3 Chloride 97 L Carbon Dioxide 26 BUN 21 Creatinine 1.03 Glucose 315 H Calcium 9.7 Cardiac Enzymes 07/26/17 Range/Units 16:51 Troponin I < 0.03 (< 0.04) ng/mL - Impressions ITS Impressions Chest X-Ray 07/26/17 16:31 IMPRESSION: No acute disease. D/ / Maryan Gonzalez Cha, MD / Maryan Gonzalez Cha, MD Interpreting Provider: Maryan Gonzalez Cha, MD Chest CTA 07/26/17 17:46 IMPRESSION: No evidence of pulmonary embolism or acute pulmonary abnormality. D/ / Jered Espinal MD / Jered Esipnal MD Interpreting Provider: Jered Espinal MD <Louise Castle - Last Filed: 07/26/17 23:35> Date of Encounter: 07/26/17 Time of Encounter: 23:00 Internal Medicine - H&P: HPI History of present illness: Mr. Medina is a 66 year old male All Systems PM: A 10-system review of systems was performed and is negative for pertinent findings except as documented above in the HPI. - Constitutional Vitals: Temp Pulse Resp BP Pulse Ox 98.3 F 92 17 147/85 94 07/26/17 22:47 07/26/17 22:47 07/26/17 22:47 07/26/17 22:47 07/26/17 22:47 Internal Med - H&P Results - Labs CBC & Chem 7: 07/26/17 16:51 07/26/17 16:51 - Attending Attestation I examined this patient and my medical decision-making was reviewed with the Resident Physician. Markel Silver. I agree with the documented findings, disposition and treatment plan as described except to the extent set forth below. 66-year-old male patient with a history of essential hypertension, diabetes presented to the ER with complaints of dizziness and near syncope. Symptoms have been going on for about 2 weeks. He had followed up with his manager target office today and had recommended that he come to the ER for further evaluation. He was found to be tachycardic on arrival to the ER. His blood pressure was normal. He does describe symptoms of blurred vision occasionally associated with his dizziness. He has not had any loss of consciousness. No apparent consistent pattern to his symptoms but he does report some dizziness when he stands up. No cough or shortness of breath. No chest pain and this time. He does get diaphoretic when he has his dizzy spells. Presyncope: Monitor vital signs. Check orthostatic blood pressure. 2-D echocardiogram and carotid Doppler's. Telemetry monitoring. Diabetes mellitus type 2: Monitor blood sugars. Sliding scale insulin Essential hypertension: Monitor blood pressure. Patient is on metoprolol but has not been able to take this medication recently as he ran out and was not able to get it refilled. We will resume this medication. Due to prophylaxis with SCDs and subcutaneous heparin.
[2017-07-26 21:55] LABS: Hemoglobin A1C 10.2 %
[2017-07-26] MEDS: Insulin LISPRO 300 UNITS/3 ML VIAL SQ SCH (22:52)
[2017-07-26] MEDS: 0.9 % Sodium Chloride 1,000 ML IVC SCH (22:53)
[2017-07-27] MEDS: *HR* Heparin 5,000 UNIT/ML VIAL SQ SCH ×2 (04:58→17:57)
[2017-07-27 06:25] LABS: Basophils % 0.3 %; Eosinophils # 0.2 K/mcL (0.0-0.6); Hematocrit 42.6 % (37.5-50.1); Hemoglobin 14.6 g/dL (12.9-16.9); Immature Granulocytes % 0.4 % (0-4); Lymphocytes # 1.9 K/mcL (0.6-4.6); Lymphocytes % 16.9 %; Mean Corpuscular HGB Conc 34.3 g/dL (31.6-35.5); Mean Corpuscular Hemoglobin 30.4 pg (28.0-33.3); Mean Corpuscular Volume 88.8 fL (83.0-100.0); Mean Platelet Volume 9.1 fL (9.4-12.4); Neutrophils # 7.9 K/mcL (1.6-8.9); Platelet Count 237 K/mcL (140-400); Red Cell Distribution Width 12.4 % (11.5-14.5); Segmented Neutrophils % 71.4 %
[2017-07-27 06:44] LABS: Alanine Aminotransferase 8 Units/L (7-52); Albumin 3.8 g/dL (3.5-5.7); Albumin/Globulin Ratio 1.5 (1.1-2.2); Alkaline Phosphatase 73 Units/L (34-104); Aspartate Amino Transferase 8 Units/L (13-39); BUN/Creatinine Ratio 20 (6-26); Bilirubin,Total 0.7 mg/dL (0.3-1.0); Blood Urea Nitrogen 17 mg/dL (8-23); Carbon Dioxide 30 mEq/L (23-29); Chloride 101 mEq/L (98-107); Globulin 2.6 g/dL (2.4-3.5); Glucose 246 mg/dL (70-105); Osmolality,Calculated 294 (280-300); Potassium 4.3 mEq/L (3.5-5.1); Sodium 137 mEq/L (136-145); Total Protein 6.4 g/dL (6.4-8.9); eGFR For African Americans > 60 (> 60); eGFR For Non-African Americans > 60 (> 60)
--- NOTE | 2017-07-27 09:24 | Internal Med Progress Note ---
Date of Encounter: 07/28/17 Time of Encounter: 09:26 - Subjective Interval history: 66-year-old man history of CAD s/p CABG, hypertension, diabetes, hyperlipidemia who presented to the ER with a chief complaint of near syncope and tachycardia. He ran out of Metoprolol 2 weeks ago. His card tender directed him to come to the ER. He describes orthostasis These symptoms have been going on for 5 days. (1) Near syncope Denies fall or actual incidence of syncope giving patients significant cardiac history, patient will need to be admitted for monitoring and further work up patient has been off of Lopressor for several weeks, will restart and monitor patient on telemetry and continuous pulse ox troponin and EKG was negative in ED; no chest pains or other anginal equivalent symptoms patient did have intermittent auto-resolving trigeminy on monitor will get orthostatic vitals, ECHO, carotid duplex, and check Mg++ cont IVF at maintenance rate may need cardiology consultation in AM (2) Cognitive change Acute attentional deficit with worsening forgetfulness over last several weeks per most likely related to acute problem (most likely postural hypotension/ tachydysrhythmia), but may represent early findings of dementia CT of the head noncontrast negative for acute abnormality neurologic exam is overall completely benign and patient is alert and oriented to person, place, and time (3) CAD (coronary artery disease) History of LHC & CABG in November of 2016 No chest pain, diaphoresis, subjective palpitations, shortness of breath, vomiting, or pedal edema noted by patient Plan as above (4) Diabetes Serum Glucose 315 in ED Will start on MD-SS, FSBG TID-AC-HS, and diabetic/cardiac diet NPO at midnight pending possible consultation or further evaluation (5) Hypertension Continue patient's Lopressor (6) DVT prophylaxis Subcutaneous heparin Physical exam: General:: A&O x3 in NAD HEAD: Normocephalic; atraumatic EYES: PERRL, no scleral icterus, no drainage, no conjunctival injection RESP: CTAB with no wheezes/rales/rhonchi CARD: Regularly irregular Rhythm Otherwise, no murmurs or gallops. Try Telma is intermittent and nonpersistent; patient is otherwise RRR ABD: soft, non-tender SKIN: normal appearance, no pallor/diaphoresis,mottling,jaundice,cyanosis EXT: Distal pulses 2+ and symmetrical; no pedal edema NEURO: revenue stamper intact, M&S exam grossly normal PSYCH: : affect, does routinely fail to attend to present conversation, does answer questions appropriately, is clearly alert and oriented to person, place, and time. - Constitutional Vitals: Temp Pulse Resp BP Pulse Ox 98.7 F 84 16 126/70 94 07/27/17 07:58 07/27/17 07:58 07/27/17 07:58 07/27/17 07:58 07/27/17 07:58 Internal Medicine: Result - Labs CBC & Chem 7: 07/27/17 06:17 07/27/17 06:17 Labs: Short CBC 07/27/17 Range/Units 06:17 WBC 11.1 (4.3-11.1) K/mcL Hgb 14.6 (12.9-16.9) g/dL Hct 42.6 (37.5-50.1) % Plt Count 237 (140-400) K/mcL Neutrophils # 7.9 (1.6-8.9) K/mcL BMP 07/27/17 06:17 Sodium 137 Potassium 4.3 Chloride 101 Carbon Dioxide 30 H BUN 17 Creatinine 0.84 Glucose 246 H Calcium 9.0 Liver Function 07/27/17 Range/Units 06:17 Total Bilirubin 0.7 (0.3-1.0) mg/dL AST 8 L (13-39) Units/L ALT 8 (7-52) Units/L Alkaline Phosphatase 73 (34-104) Units/L Albumin 3.8 (3.5-5.7) g/dL Consult Discharge Plan - Plan Referrals: NONE,PCP [Primary Care Provider] -
[2017-07-27] MEDS: Insulin LISPRO 300 UNITS/3 ML VIAL SQ SCH ×4 (09:42→20:51)
[2017-07-27] MEDS: Aspirin 81 MG TAB.CHEW PO SCH (09:42)
--- NOTE | 2017-07-27 10:04 | Electrocardiograph Report ---
[place] [id number] Test Date: 2017-07-26 Pat Name: Rogelio Medina Department: 102 Room: [facility] Gender: M [employer] Sales Specialist: Janneth : 1950 Requested By: Jack Almazan Order Number: [id number] Reading MD: Debby Dodd Measurements Intervals [place] Rate: 125 P: 47 WA: 133 QRS: 58 QRSD: 94 T: 32 QT: 305 QTc: 379 Interpretive Statements SINUS TACHYCARDIA POOR R WAVE PROGRESSION Electronically Signed On 07-27-2017 10:02:43 EST by Debby Dodd
[2017-07-27] MEDS: 0.9 % Sodium Chloride 1,000 ML IVC SCH (20:50)
[2017-07-28] MEDS: 0.9 % Sodium Chloride 1,000 ML IVC SCH (05:24)
[2017-07-28] MEDS: *HR* Heparin 5,000 UNIT/ML VIAL SQ SCH (05:26)
[2017-07-28 07:58] LABS: Basophils % 0.4 %; Eosinophils # 0.2 K/mcL (0.0-0.6); Eosinophils % 1.9 %; Hematocrit 42.2 % (37.5-50.1); Hemoglobin 14.7 g/dL (12.9-16.9); Immature Granulocytes % 0.4 % (0-4); Lymphocytes # 1.4 K/mcL (0.6-4.6); Lymphocytes % 18.5 %; Mean Corpuscular HGB Conc 34.8 g/dL (31.6-35.5); Mean Platelet Volume 9.2 fL (9.4-12.4); Monocytes # 0.7 K/mcL (0.0-1.3); Monocytes % 8.5 %; Neutrophils # 5.4 K/mcL (1.6-8.9); Platelet Count 247 K/mcL (140-400); Red Blood Count 4.74 M/mcL (4.19-5.50); Red Cell Distribution Width 12.4 % (11.5-14.5); Segmented Neutrophils % 70.3 %
[2017-07-28 08:13] LABS: BUN/Creatinine Ratio 18 (6-26); Blood Urea Nitrogen 12 mg/dL (8-23); Calcium 8.8 mg/dL (8.6-10.3); Carbon Dioxide 24 mEq/L (23-29); Chloride 106 mEq/L (98-107); Glucose 221 mg/dL (70-105); Osmolality,Calculated 295 (280-300); Potassium 4.1 mEq/L (3.5-5.1); Sodium 139 mEq/L (136-145); eGFR For African Americans > 60 (> 60); eGFR For Non-African Americans > 60 (> 60)
[2017-07-28] MEDS: Aspirin 81 MG TAB.CHEW PO SCH (09:10)
[2017-07-28] MEDS: Insulin LISPRO 300 UNITS/3 ML VIAL SQ SCH ×3 (09:10→17:18)
[2017-07-28 12:42] VITALS: BP 109/68
--- NOTE | 2017-07-28 16:57 | Discharge Summary ---
Date of Encounter: 07/29/17 Time of Encounter: 16:53 - Discharge Medications Home Medications: Calcium Carbonate/Vitamin D3 [Calcium 600-Vit D3 800 Tab] 1 tab PO DAILY [History] Duloxetine HCl [Cymbalta] 60 mg PO DAILY 12/07/16 [History] Ibuprofen 800 mg PO Q8H PRN 12/07/16 [History] Lisinopril [Zestril] 5 mg PO DAILY 12/07/16 [History] metFORMIN [Glucophage] 1,000 mg PO BIDWM 12/07/16 [History] Aspirin 81 mg PO DAILY #60 tab.chew 12/16/16 [Rx] Atorvastatin [Lipitor] 40 mg PO HS #30 tablet 12/16/16 [Rx] Metoprolol [Lopressor] 12.5 mg PO BID #60 tablet 12/22/16 [Rx] Linagliptin [Tradjenta] 5 mg PO DAILY 07/26/17 [History] Nitroglycerin [Nitrostat] 0.4 mg SL Q5M PRN 07/26/17 [History] Allergies/Adverse Reactions: 3 Allergy/AdvReac Type Severity Reaction Status Date / Time albuterol AdvReac See Verified 07/26/17 17:36 Comments Procedures/tests Complete & Pending: Procedures Performed prior 72 hours Category Date Time Status EV carotid duplex imaging BI Stat Y 07/27/17 21:58 Completed EV echocardiogram Stat Y 07/27/17 21:58 Completed Date of admission: 07/26/17 21:49 Primary care physician: PCP NONE Discharging clinician: Colton Mayberry - Patient Status Disposition: Home, Self-Care Condition: Good - Discharge Instructions Instructions: Syncope (DC) Follow Up With: NONE,PCP [Primary Care Provider] - Hospital course: 66-year-old man history of CAD s/p CABG, hypertension, diabetes, hyperlipidemia who presented to the ER with a chief complaint of near syncope and tachycardia. He ran out of Metoprolol 2 weeks ago. His metalworking instructor directed him to come to the ER. He describes orthostasis These symptoms have been going on for 5 days. His Lopressor was restarted and he had no further tachycardia and his symptoms resolved. His CT-Head scan did not show significant acute pathology and his carotid doppler ultrasound was unremarkable for significant occlusion. He had complete resolution of symptoms and wanted to be discharged so the echocadiogram which was done earlier hhad not been read at the time of discharge and will nee to be followed by his PCP. He also has an upcomming cardiology appointment and is discharged in stable condition. Physical exam: General:: A&O x3 in NAD HEAD: Normocephalic; atraumatic EYES: PERRL, no scleral icterus, no drainage, no conjunctival injection RESP: CTAB with no wheezes/rales/rhonchi CARD: Regularly irregular Rhythm Otherwise, no murmurs or gallops. Try Telma is intermittent and nonpersistent; patient is otherwise RRR ABD: soft, non-tender SKIN: normal appearance, no pallor/diaphoresis,mottling,jaundice,cyanosis EXT: Distal pulses 2+ and symmetrical; no pedal edema NEURO: phlebotomy technologist intact, M&S exam grossly normal PSYCH: : affect, does routinely fail to attend to present conversation, does answer questions appropriately, is clearly alert and oriented to person, place, and time. (1) Near syncope Full resolution of symptoms with unremarkable w/u. (2) Cognitive change Completely back to baseline even before admission to our service from the ER with no acute pathology on CT head. (3) CAD (coronary artery disease) No chest pain, diaphoresis, subjective palpitations, shortness of breath, vomiting, or pedal edema noted by patient PRestart his BB and continue other home medications. F/u appontment with cardiology already scheduled shortly after discharge. (4) Diabetes Restart home regimen (5) Hypertension Continue patient's Lopressor (6) DVT prophylaxis Subcutaneous heparin Time spent discussing smoking cessation with patient: more than 10 minutes - Time Spent with Patient Total time spent providing and/or coordinating discharge services: Greater than 30 minutes - Constitutional Vitals: Temp Pulse Resp BP Pulse Ox 99.0 F 74 16 109/68 96 07/28/17 12:31 07/28/17 12:31 07/28/17 12:31 07/28/17 12:31 07/28/17 12:31
== END 2017-07-28 17:40 | disposition home or self-care (01) ==
LOC: EMEROO 16:14 → 3NENU 16:14
PROVIDERS: ADMIT Internal Medicine; ATTEND Internal Medicine

== ENCOUNTER 2018-03-28 20:30 | Inpatient (IN) ==
[2018-03-28] MEDS ORDERED: Naloxone 0.4 MG/ML INJ IVP PRN (22:12)
[2018-03-28] MEDS ORDERED: Nitroglycerin 0.4 MG TAB.SUBL SL PRN (22:16)
--- NOTE | 2018-03-28 22:32 | Internal Med History&Physical ---
Date of Encounter: 03/30/18 Time of Encounter: 22:32 Internal Medicine - H&P: HPI History of present illness: Mr. Medina is a 67 year old male with a past medical history of diabetes, hypertension and coronary artery disease status post CABG in November 2016 who initially presented to [facility] due to chest pain. Of note, patient had presented to [facility] the day before and was started on antibiotics and prednisone for presumed acute bronchitis. Patient presented to the ED after one hour episode of 10 out of 10 chest pain. Chest pain described as stabbing, right-sided associated with numbness and tingling in his right arm. Patient took 1 nitroglycerin which reduced his pain is 6 out of 10. No Nausea or vomiting. Symptoms started as patient was walking up the porch of his house. His next-door neighbor checked his blood pressure and found to be 200/118. Patient denies any similarity of this episode to previous SC in 2011. Blood pressure upon initial evaluation at [facility] was reported to be elevated however I cannot find documentation of an elevated blood pressure. Furthermore, patient denies any reports of an elevated blood pressure when he visited the ED the day before. Patient states he does not smoke and does not drink. Documentation shows normal vitals. Laboratory workup was notable for an elevated blood sugar over 500, troponin of 0.23 an elevated white blood cell count of 18.4. EKG showed normal sinus rhythm with no ST or T-wave abnormalities. A repeat EKG here at [place] was also unremarkable except for one PVC. Patient received loading dose of aspirin and was started on a heparin drip. He is currently asymptomatic and stable. Past Med Surg Social Fam HX - Past Medical History Medical history: coronary artery disease, diabetes, hyperlipidemia, hypertension , myocardial infarction Psychiatric history: anxiety, depression - Past Surgical History Surgical History: angioplasty/stent, other Additional surgical history: Back surgery - Social History Smoking Status: Former smoker Smokeless Tobacco Status: No Alcohol use: none Drug use: none - Family History Mother Adopted: No Family Member Ethnicity: Non- Living Status: Hx Family Cancer: Yes (pancreatic cancer) Hx Family Endocrine Disorder: Yes (diabetes) Father Adopted: No Family Member Ethnicity: Non- Living Status: Hx Family Cancer: Yes (Prostate cancer) Internal Medicine - H&P: Meds Calcium Carbonate/Vitamin D3 [Calcium 600-Vit D3 800 Tab] 1 tab PO DAILY [History] Duloxetine HCl [Cymbalta] 60 mg PO DAILY 12/07/16 [History] Ibuprofen 800 mg PO TID PRN 12/07/16 [History] Lisinopril [Zestril] 5 mg PO DAILY 12/07/16 [History] metFORMIN [Glucophage] 1,000 mg PO BIDWM 12/07/16 [History] Aspirin 81 mg PO DAILY #60 tab.chew 12/16/16 [Rx] Atorvastatin [Lipitor] 40 mg PO HS #30 tablet 12/16/16 [Rx] Metoprolol [Lopressor] 12.5 mg PO BID #60 tablet 12/22/16 [Rx] Linagliptin [Tradjenta] 5 mg PO DAILY 07/26/17 [History] Albuterol Sulfate [Ventolin Hfa] 2 puff IH Q4H PRN 03/29/18 [History] Empagliflozin [Jardiance] 10 mg PO DAILY 03/29/18 [History] Clopidogrel [Plavix] 75 mg PO DAILY #30 tablet 03/30/18 [Rx] 3 Allergy/AdvReac Type Severity Reaction Status Date / Time albuterol AdvReac See Verified 07/26/17 17:36 Comments All Systems PM: A 10-system review of systems was performed and is negative for pertinent findings except as documented above in the HPI. - Constitutional Exam: General: Alert and oriented Skin:Normal color, no rash, no lesions. HEENT:EOM, pupils equal, round and reactive. Cardiovascular:Normal S1 & S2, no rubs, murmurs or gallops. No JVD. Pulse regular. Lungs:Normal breath sounds, no wheezes or crackles. Abdomen:Soft, non-tender, no rigidity. Extremities:No deformity, no edema or tenderness, no joint swelling or clubbing. Neurological:Normal cognition and motor skills. Pulses:Carotid and radial pulses normal +2. Rest of the physical exam is non contributory Internal Med - H&P Results - Labs CBC & Chem 7: 03/30/18 08:19 03/30/18 08:19 - Assessment and plan (1) Chest pain Current Visit: Yes Status: Acute Assessment and plan: Right-sided stabbing Chest pain associated with right arm numbness and tingling , partially relieved with nitroglycerin in the setting of significant history of coronary artery disease status post CABG concerning for NSTEMI. Initial troponin reported at [facility] was 0.23. Initial EKG shows normal sinus rhythm with no ST or T-wave abnormalities. Patient given a loading dose of aspirin and started on heparin drip prior to transfer to [place]. Patient currently chest pain-free and hemodynamically stable. Repeat EKG again normal. We will continue patient on telemetry Continue with heparin drip We will give patient's evening dose of 12.5 of metoprolol Sublingual nitroglycerin PRN Cardiology consult in the morning Qualifiers: Qualified Code(s): R07.89 - Other chest pain; R07.8 - Other chest pain (2) Non-STEMI (non-ST elevated myocardial infarction) Current Visit: No Status: Acute Assessment and plan: See above (3) CAD (coronary artery disease) Current Visit: No Status: Acute Assessment and plan: Currently stable. Continue with aspirin, beta brando, JALEN inhibitor and statin Qualifiers: Qualified Code(s): I25.118 - Atherosclerotic heart disease of [place] coronary artery with other forms of angina pectoris (4) Hyperglycemia Current Visit: No Status: Acute Assessment and plan: Patient's blood sugar reportedly greater than 500. Likely exacerbated in the setting of recent steroid use. We will continue patient on sliding scale insulin with blood glucose checks. (5) Diabetes Current Visit: No Status: Chronic Assessment and plan: Continue with blood glucose checks. Sliding scale insulin. Diabetic diet. Qualifiers: Qualified Code(s): E11.59 - Type 2 diabetes mellitus with other circulatory complications (6) Hyperlipidemia Current Visit: No Status: Chronic Assessment and plan: Continue with home statin Qualifiers: Qualified Code(s): E78.00 - Pure hypercholesterolemia, unspecified; E78.0 - Pure hypercholesterolemia (7) Hypertension Current Visit: No Status: Chronic Assessment and plan: Blood pressure stable. Resume brando and JALEN inhibitor. Qualifiers: Qualified Code(s): I10 - Essential (primary) hypertension (8) DVT prophylaxis Current Visit: No Status: Inactive - Time Spent With Patient Total time spent is greater than 50% in coordination of care (as documented) at patient's floor/unit and/or counseling patient:
[2018-03-28 23:16] LABS: Basophils % 0.1 %; Hematocrit 41.8 % (37.5-50.1); Hemoglobin 14.4 g/dL (12.9-16.9); Immature Granulocytes % 0.7 % (0-4); Lymphocytes # 1.9 K/mcL (0.6-4.6); Lymphocytes % 8.9 %; Mean Corpuscular HGB Conc 34.4 g/dL (31.6-35.5); Mean Corpuscular Hemoglobin 30.6 pg (28.0-33.3); Mean Corpuscular Volume 88.9 fL (83.0-100.0); Mean Platelet Volume 9.8 fL (9.4-12.4); Monocytes # 1.2 K/mcL (0.0-1.3); Monocytes % 5.6 %; Neutrophils # 18.4 K/mcL (1.6-8.9); Platelet Count 288 K/mcL (140-400); Red Cell Distribution Width 12.3 % (11.5-14.5); Segmented Neutrophils % 84.7 %
[2018-03-28 23:19] LABS: Prothrombin Time 11.3 Seconds (9.4-12.1)
[2018-03-28] MEDS ORDERED: *HR* Dextrose 50 % in Water (Syg) 50 ML SYRINGE IVP PRN (23:23)
[2018-03-28] MEDS ORDERED: D5% in Water 1,000 ML IVC PRN (23:23)
[2018-03-28] MEDS ORDERED: Dextrose Gel 15 GM/37.5 ML TUBE PO PRN ×2 (23:23)
[2018-03-28] MEDS ORDERED: *HR* Heparin 5,000 UNIT/ML VIAL IVP PRN ×2 (23:24)
[2018-03-28 23:42] LABS: Alanine Aminotransferase 9 Units/L (7-52); Albumin 4.2 g/dL (3.5-5.7); Albumin/Globulin Ratio 1.8 (1.1-2.2); Alkaline Phosphatase 58 Units/L (34-104); Aspartate Amino Transferase 13 Units/L (13-39); BUN/Creatinine Ratio 31 (6-26); Bilirubin,Total 0.4 mg/dL (0.3-1.0); Blood Urea Nitrogen 30 mg/dL (8-23); Calcium 9.9 mg/dL (8.6-10.3); Carbon Dioxide 22 mEq/L (23-29); Chloride 102 mEq/L (98-107); Cholesterol 109 mg/dL (< 200); Globulin 2.4 g/dL (2.4-3.5); Glucose 309 mg/dL (70-105); HDL Cholesterol 27 mg/dL (40-59); LDL Cholesterol,Calculated 38 mg/dL (0-99); Osmolality,Calculated 300 (280-300); Potassium 4.2 mEq/L (3.5-5.1); Sodium 136 mEq/L (136-145); Total Protein 6.6 g/dL (6.4-8.9); Triglycerides 220 mg/dL (< 150); eGFR For Non-African Americans > 60 (> 60)
[2018-03-28 23:47] LABS: Troponin I 0.56 ng/mL (< 0.04)
[2018-03-29] MEDS: Insulin LISPRO 300 UNITS/3 ML VIAL SQ SCH ×4 (01:20→17:18)
[2018-03-29 01:26] LABS: Hematocrit 43.5 % (37.5-50.1); Hemoglobin 14.7 g/dL (12.9-16.9); Mean Corpuscular HGB Conc 33.8 g/dL (31.6-35.5); Mean Corpuscular Hemoglobin 30.1 pg (28.0-33.3); Mean Corpuscular Volume 89.1 fL (83.0-100.0); Mean Platelet Volume 9.7 fL (9.4-12.4); Platelet Count 273 K/mcL (140-400); Red Blood Count 4.88 M/mcL (4.19-5.50); Red Cell Distribution Width 12.4 % (11.5-14.5)
[2018-03-29 01:28] LABS: INR 0.9; Prothrombin Time 10.5 Seconds (9.4-12.1)
[2018-03-29] MEDS: Heparin 25,000 UNIT/500 ML D5W 25,000 UNIT/500 ML BAG IVC SCH ×2 (02:37→23:47)
[2018-03-29] MEDS: Aspirin 81 MG TAB.CHEW PO SCH (09:00)
--- NOTE | 2018-03-29 09:15 | Internal Med Progress Note ---
Hospitalist Progress Note - Encounter Date of Encounter: 03/29/18 Time of Encounter: 11:00 - Subjective Interval History: Patient will be scheduled for of heart catheterization on 03/30/18 - Exam Vitals: Temp Pulse Resp BP Pulse Ox 97.9 F 54 18 108/74 90 03/29/18 08:00 03/29/18 08:00 03/29/18 08:00 03/29/18 08:00 03/29/18 08:00 Exam: Gen.: Nonacute distress, alert and oriented 3 ENT: Mucosal membranes moist Respiratory: Lungs are clear to auscultation bilaterally without any wheezing rhonchi or rales Cardiovascular: Normal S1 and S2 regular rate rhythm no murmurs rubs or gallops Abdomen: Soft, nontender and nondistended with positive bowel sounds Extremities: No lower extremity edema Skin: Normal color - Assessment and Plan (1) Non-STEMI (non-ST elevated myocardial infarction) Current Visit: No Status: Acute Assessment and Plan: Patient presented with chest pain found to have elevated troponins of 0.23 and then to 0.56 Continue heparin drip Cardiology consulted and appreciate recommendations. (2) CAD (coronary artery disease) Current Visit: No Status: Acute Assessment and Plan: Patient with history of coronary artery disease status post CABG in November 2016 Continue with aspirin, beta brando, JALEN inhibitor and statin Management of non-STEMI as above (3) Bronchitis Current Visit: Yes Status: Acute Assessment and Plan: Patient was started on prednisone and antibiotics for treatment of acute bronchitis at [facility] (4) Hypertension Current Visit: No Status: Chronic Assessment and Plan: Blood pressure stable; continue beta brando brando and JALEN inhibitor. (5) Diabetes Current Visit: No Status: Chronic Assessment and Plan: Hemoglobin A1c of 10.2 on 07/2007 Continue sliding scale insulin (6) Hyperlipidemia Current Visit: No Status: Chronic Assessment and Plan: Continue with home statin (7) DVT prophylaxis Current Visit: No Status: Inactive Assessment and Plan: On heparin drip as above - Time Spent with Patient Total time spent is greater than 50% in coordination of care (as documented) at patient's floor/unit and/or counseling patient: Internal Medicine: Result - Labs CBC & Chem 7: 03/30/18 08:19 03/30/18 08:19 Labs: Short CBC 03/28/18 03/29/18 Range/Units 22:35 00:51 WBC 21.7 H 20.1 H (4.3-11.1) K/mcL Hgb 14.4 14.7 (12.9-16.9) g/dL Hct 41.8 43.5 (37.5-50.1) % Plt Count 288 273 (140-400) K/mcL Neutrophils # 18.4 H (1.6-8.9) K/mcL BMP 03/28/18 22:35 Sodium 136 Potassium 4.2 Chloride 102 Carbon Dioxide 22 L BUN 30 H Creatinine 0.98 Glucose 309 H Calcium 9.9 Cardiac Enzymes 03/28/18 Range/Units 22:35 Troponin I 0.56 H* (< 0.04) ng/mL Liver Function 03/28/18 Range/Units 22:35 Total Bilirubin 0.4 (0.3-1.0) mg/dL AST 13 (13-39) Units/L ALT 9 (7-52) Units/L Alkaline Phosphatase 58 (34-104) Units/L Albumin 4.2 (3.5-5.7) g/dL - ABG Interpretation ABG results: PT/INR, D-dimer PT 10.5 Seconds (9.4-12.1) 03/29/18 00:51 Consult Discharge Plan - Plan Instructions: Clopidogrel (By mouth) Referrals: Declan Vick DO [Primary Care Provider] - Prescriptions: Clopidogrel [Plavix] 75 mg PO DAILY #30 tablet (2) CAD (coronary artery disease) Qualifiers: Coronary Disease-Associated Artery/Lesion type: [place] artery [place] vs. transplanted heart: [place] heart Associated angina: with stable angina Qualified Code(s): I25.118 - Atherosclerotic heart disease of [place] coronary artery with other forms of angina pectoris (4) Hypertension Qualifiers: Hypertension type: essential hypertension Qualified Code(s): I10 - Essential (primary) hypertension (5) Diabetes Qualifiers: Diabetes mellitus type: type 2 Diabetes mellitus middle or intermediate [employer] principal insulin use: without chcf use Diabetes mellitus complication status: with circulatory complication Diabetes mellitus complication detail: with other circulatory complications Qualified Code(s): E11.59 - Type 2 diabetes mellitus with other circulatory complications (6) Hyperlipidemia Qualifiers: Hyperlipidemia type: pure hypercholesterolemia Qualified Code(s): E78.00 - Pure hypercholesterolemia, unspecified; E78.0 - Pure hypercholesterolemia
--- NOTE | 2018-03-29 12:42 | Cardiology Consult Note ---
Date of Encounter: 03/29/18 Time of Encounter: 10:00 Assessment and Plan (1) Chest pain Current Visit: Yes Status: Acute ACS/NSTEMI, need to r/o aortic dissection involving coronary artery given hypertensive episode and atypical chest pain rec CTA of chest Qualifiers: Chest pain type: other chest pain Qualified Code(s): R07.89 - Other chest pain; R07.8 - Other chest pain (2) Non-STEMI (non-ST elevated myocardial infarction) Current Visit: No Status: Acute type I vs type II (HTN) if CTA neg for aortic dissection, c/w heparin drip, ASA and give plavix 300 once , then 75 qd, plan [facility] am 03/30 c/w BB, statin (3) CAD (coronary artery disease) Current Visit: No Status: Acute CABG x2 11/2016, no chest pain till this episode on ASA, statin Qualifiers: Coronary Disease-Associated Artery/Lesion type: [place] artery [place] vs. transplanted heart: [place] heart Associated angina: with stable angina Qualified Code(s): I25.118 - Atherosclerotic heart disease of [place] coronary artery with other forms of angina pectoris (4) Diabetes Current Visit: No Status: Chronic uncontrolled Qualifiers: Diabetes mellitus type: type 2 Diabetes mellitus group home insulin use: without group home use Diabetes mellitus complication status: with circulatory complication Diabetes mellitus complication detail: with other circulatory complications Qualified Code(s): E11.59 - Type 2 diabetes mellitus with other circulatory complications (5) Hypertension Current Visit: No Status: Chronic hypertensive episode with atyical chest pain. r/o thoracic aortic dissection Qualifiers: Hypertension type: essential hypertension Qualified Code(s): I10 - Essential (primary) hypertension (6) Hyperlipidemia Current Visit: No Status: Chronic Qualifiers: Hyperlipidemia type: pure hypercholesterolemia Qualified Code(s): E78.00 - Pure hypercholesterolemia, unspecified; E78.0 - Pure hypercholesterolemia Discussion w patient/family: The assessment and plan as outlined above was discussed with the patient and/or family members who expressed understanding and agreement. All questions were answered. Thank you for involving us in the care of your patient. Please call with any questions. History of Present Illness Consult date: 03/29/18 Requesting physician: Mumtaz Rich Consult reason: cp, elevated troponin Chief complaint: cp History of present illness: Mr. Medina is a 67 year old male CAD s/p PCI, CABG 11/2016 (GARCIA-LAD, SVG-OM), uncontrolled DM, HTN, HLD, GERD, and tobacco use P/w acute onset of right upper chest 10/10/ stabbing pain with radiation to right arm at rest, mild dyspnea, non-positional or pleuritic, partial relief by self administered ASA/NTG SL, total relief in [facility] after ASA 325 and more NTG SL. No syncope, dizziness, palpitations, N/V. BP was "very high" with cp, but normalized with chest pain relief. No prior similar episode. BP not high at baseline. No risk factors of VTE/PE. Recurrent "bronchitis" 1 day prior. On heparin drip, no cp recurrence. ECG SR, PVCs, no ischemic changes Trop 0.5-1.4 Tele no event TTE today 03/29/18 LVEF 60%. Normal LV chamber size, wall thickness and function. RV not sell seen, grossly normal size and function. Mild mitral regurgitation. No pulmonary hypertension on current study. TTE 12/07/16: LVEF 60-65%, moderate LVDD mild moderately dilated LA, normal RV structure and function, mild PH, normal wall motion, trivial pericardial effusion LHC 12/07/16: triple vessel CAD with severe ISR of previously stented ramus-- patient has been recommended to undergo CABG [facility] 12/11/16: 2v CABG, GARCIA to LAD and SVG to OM TTE 07/27/17: LVEF 65%, mild LVDD, trace TR CUS 07/27/17: bilateral carotids have minimal plaque throughout Past Med Surg Social Fam HX - Past Medical History Medical history: coronary artery disease, diabetes, hyperlipidemia, hypertension , myocardial infarction Psychiatric history: anxiety, depression - Past Surgical History Surgical History: angioplasty/stent, other Additional surgical history: Back surgery - Social History Smoking Status: Former smoker Smokeless Tobacco Status: No Alcohol use: none Drug use: none - Family History Mother History Unknown: Yes Adopted: No Family Member Ethnicity: Non- Living Status: Hx Family Cancer: Yes (pancreatic cancer) Hx Family Endocrine Disorder: Yes (diabetes) Father History Unknown: Yes Adopted: No Family Member Ethnicity: Non- Living Status: Hx Family Cancer: Yes (Prostate cancer) Medications and Allergies Calcium Carbonate/Vitamin D3 [Calcium 600-Vit D3 800 Tab] 1 tab PO DAILY [History] Duloxetine HCl [Cymbalta] 60 mg PO DAILY 12/07/16 [History] Ibuprofen 800 mg PO TID PRN 12/07/16 [History] Lisinopril [Zestril] 5 mg PO DAILY 12/07/16 [History] metFORMIN [Glucophage] 1,000 mg PO BIDWM 12/07/16 [History] Aspirin 81 mg PO DAILY #60 tab.chew 12/16/16 [Rx] Atorvastatin [Lipitor] 40 mg PO HS #30 tablet 12/16/16 [Rx] Metoprolol [Lopressor] 12.5 mg PO BID #60 tablet 12/22/16 [Rx] Linagliptin [Tradjenta] 5 mg PO DAILY 07/26/17 [History] Albuterol Sulfate [Ventolin Hfa] 2 puff IH Q4H PRN 03/29/18 [History] Empagliflozin [Jardiance] 10 mg PO DAILY 03/29/18 [History] 3 Allergy/AdvReac Type Severity Reaction Status Date / Time albuterol AdvReac See Verified 07/26/17 17:36 Comments All Systems Review: The remainder of the systems were reviewed and are negative - Constitutional Constitutional: no fever(s) - Cardiovascular Cardiovascular: as per HPI - Respiratory Respiratory: cough - Hematological/Lymphatic Hematologic/Lymphatic: no easy bleeding Physical Examination Other: General: NAD, AAO, cogent HEENT: anicteric Neck: no JVD, no bruits Chest: CTA B/L, no W/R/C Heart: RRR, S1/S2, no S3/S4, no M/G/R Abdominal: BS +, soft, ND, NT Peripheral Pulses: radial pulse 2+ B/L, DP 2+ B/L Skin/Extremities: no cyanosis, no LE edema Neurological: grossly non-focal. Results 03/29/18 00:51 03/28/18 22:35 Lab Results 03/28/18 03/28/18 03/28/18 22:35 22:35 22:35 WBC 21.7 H Hgb 14.4 Hct 41.8 Plt Count 288 INR 1.0 Sodium 136 Potassium 4.2 Chloride 102 Carbon Dioxide 22 L BUN 30 H Creatinine 0.98 Glucose 309 H Calcium 9.9 Magnesium Total Bilirubin 0.4 AST 13 ALT 9 Alkaline Phosphatase 58 Troponin I 0.56 H* B-Natriuretic Peptide 03/28/18 03/29/18 03/29/18 22:35 00:51 00:51 WBC 20.1 H Hgb 14.7 Hct 43.5 Plt Count 273 INR Sodium Potassium Chloride Carbon Dioxide BUN Creatinine Glucose Calcium Magnesium 2.1 Total Bilirubin AST ALT Alkaline Phosphatase Troponin I B-Natriuretic Peptide 125 H 03/29/18 00:51 WBC Hgb Hct Plt Count INR 0.9 Sodium Potassium Chloride Carbon Dioxide BUN Creatinine Glucose Calcium Magnesium Total Bilirubin AST ALT Alkaline Phosphatase Troponin I B-Natriuretic Peptide - Imaging and Cardiology Chest Xray: report reviewed Echo: image reviewed Cardiac cath: report reviewed Other Results: Tele reviewed - EKG Interpretation EKG results cardiology: personally reviewed Consult Discharge Plan - Plan Referrals: Declan Vick DO [Primary Care Provider] -
[2018-03-29] MEDS ORDERED: GuaiFENesin/Dextromethorphan TABLET PO PRN (13:45)
[2018-03-29] MEDS ORDERED: Isovue-370 500 ML INFUS..BTL IV ONE ×2 (14:29)
[2018-03-30 09:02] LABS: Basophils % 0.5 %; Eosinophils # 0.2 K/mcL (0.0-0.6); Eosinophils % 2.2 %; Hematocrit 44.9 % (37.5-50.1); Hemoglobin 15.1 g/dL (12.9-16.9); Immature Granulocytes % 0.6 % (0-4); Lymphocytes # 2.5 K/mcL (0.6-4.6); Lymphocytes % 30.3 %; Mean Corpuscular HGB Conc 33.6 g/dL (31.6-35.5); Mean Corpuscular Hemoglobin 30.4 pg (28.0-33.3); Mean Corpuscular Volume 90.3 fL (83.0-100.0); Mean Platelet Volume 9.9 fL (9.4-12.4); Monocytes # 0.6 K/mcL (0.0-1.3); Monocytes % 7.1 %; Platelet Count 211 K/mcL (140-400); Red Blood Count 4.97 M/mcL (4.19-5.50); Red Cell Distribution Width 12.5 % (11.5-14.5); Segmented Neutrophils % 59.3 %
[2018-03-30 09:03] LABS: Neutrophils # 4.9 K/mcL (1.6-8.9)
[2018-03-30] MEDS: Aspirin 81 MG TAB.CHEW PO SCH (09:18)
[2018-03-30] MEDS: Insulin LISPRO 300 UNITS/3 ML VIAL SQ SCH ×3 (09:18→16:55)
[2018-03-30 09:21] LABS: BUN/Creatinine Ratio 31 (6-26); Blood Urea Nitrogen 25 mg/dL (8-23); Calcium 8.8 mg/dL (8.6-10.3); Carbon Dioxide 28 mEq/L (23-29); Chloride 97 mEq/L (98-107); Glucose 204 mg/dL (70-105); Osmolality,Calculated 278 (280-300); Potassium 4.4 mEq/L (3.5-5.1); Sodium 129 mEq/L (136-145); eGFR For Non-African Americans > 60 (> 60)
--- NOTE | 2018-03-30 09:40 | Event Note ---
Date of Encounter: 03/30/18 Time of Encounter: 09:39 - Cardiology Event Note NSTEMI--peak troponin 1.42. On heparin gtt and ACS protocol. Discussed and reviewed with Dr. King. He recommends LHC today, within 48 hours of his presentation on evening of 03/28/18. R/B/A discussed. Pt agrees to proceed with LHC today.
[2018-03-30] MEDS ORDERED: Heparin 1,000 UNITS/500 mL 500 ML ONE (10:01)
[2018-03-30] MEDS ORDERED: *HR* Heparin 10,000 UNIT/10 ML VIAL ONE (10:01)
[2018-03-30] MEDS ORDERED: Nitroglycerin 1,000 MCG/10 ML VIAL IV ONE (10:01)
[2018-03-30] MEDS ORDERED: ISOVUE-370 200 ML INFUS..BTL IV ONE ×2 (10:01→10:45)
[2018-03-30] MEDS ORDERED: 0.9 % Sodium Chloride 1,000 ML ONE ×2 (10:01→10:28)
[2018-03-30] MEDS ORDERED: *HR* Midazolam HCl 5 MG/5 ML VIAL IVP ONE (10:31)
[2018-03-30] MEDS ORDERED: *HR* FentaNYL (PF) 250 MCG/5 ML VIAL ONE (10:32)
--- NOTE | 2018-03-30 10:46 | Pre-Sedation Evaluation ---
Pre-sedation evaluation - Pre-sedation checklist Date of procedure: 03/30/18 Procedure: [facility] Recent Vitals: Last Vital Signs Temp 97.6 F 03/30/18 07:49 Pulse 55 03/30/18 07:49 Resp 20 03/30/18 07:49 BP 127/75 03/30/18 07:49 Pulse Ox 92 03/30/18 07:49 H&P (including ROS) documented in medical record: Yes Previous reaction to sedatives/anesthetics: No Dietary Status: NPO after Midnight Dentition: No loose teeth or bridges ASA Classification *see protocol: CLASS II-Mild systemic disease Plan of Care: Pt appropriate candidate for procedure/moderate/conscious sedation , Risks/benefits of procedure/sedation discussed w/ patient/family Cardiac Registry (Cardio Only) - Functional Capacity Functional Capacity: >=4 METS with symptoms - Clincal Frailty Scale Clinical Frailty Scale: Managing Well
[2018-03-30] MEDS ORDERED: Tirofiban 12.5 MG/250ML 12.5 MG/250 ML BAG ONE (11:03)
[2018-03-30] MEDS ORDERED: Tirofiban 12.5 MG/250ML 12.5 MG/250 ML BAG IVC SCH (11:30)
--- NOTE | 2018-03-30 11:51 | Invasive Diagnostic Lab Proc ---
Name: Rogelio Medina Date of Study: 03/30/2018 Date: 1950 Ht: 66.9in Medical Record#: [id number] Age: 67 Wt: 197.09lb Gender: Male BSA: 2.01 Order #: [id number] BMI: 30.93 Physicians Procedure Physician: Toney Caldwell MD, FACC Referring MD: Declan Vick DO Referring MD: Staff Name Position Time In Juan Antonio Calixto RT (R) Scrub 10:34 AM Talat Montoya RN Monitor 10:34 AM Basim Colin RN Rigger Third 10:35 AM Indications Indication Non-Stemi Procedures Performed Procedure L HRT ART/GRFT ANGIO PRQ CARD NICOLE STENT W/ANGIO 1 VSL PRQ CARD NICOLE STENT W/ANGIO 1 VSL Pre-Procedure Checklist Informed consent is complete signed and on chart. H&P is on chart. ID band is on and ID verified with patient. Patient NPO for procedure The procedure was described for the patient and questions were answered. ECG is on chart. Plan of Care Patient will tolerate the procedure without complications. Adequate level of comfort will be maintained. Hemodynamics will remain stable Patient will recover from procedure without complications. Respiratory function will be maintained. Cardiac rhythm will remain stable. Patient temperature will be maintained. Patient and/or family have verbalized understanding of the procedure. Patient Education Allergies albuterol Vital Signs Time BP (mmHg) HR (bpm) O2 Sat. RR (bpm) LOC 10:39 AM / % 5 = Fully awake and oriented or at pre-proc level 10:39 AM / % 4 = Oriented but drowsy 10:54 AM / % 4 = Oriented but drowsy 10:37 AM 139 / 73 55 98 % 10:41 AM 122 / 67 57 95 % 27 10:46 AM 122 / 66 56 97 % 21 10:51 AM 118 / 66 56 97 % 13 10:56 AM 125 / 62 60 98 % 14 11:01 AM 127 / 73 61 96 % 13 11:06 AM 125 / 75 62 97 % 14 11:11 AM 130 / 73 60 99 % 15 11:16 AM 134 / 74 60 98 % 14 11:21 AM 137 / 77 61 100 % 17 11:26 AM 135 / 80 60 99 % 17 Procedural Medications Time Medication Dose Units Method Given By 10:39 AM Oxygen 2 L/min nasal cannula Basim Colin RN 10:40 AM Versed 2 mg Intravenous Basim Colin RN 10:40 AM Fentanyl 50 mcg Intravenous Basim Colin RN 10:47 AM Lidocaine 2% 20 ml Subcutaneous Toney Caldwell MD, [facility] 11:04 AM Heparin 4000 units Intravenous Basim Colin RN 11:05 AM Aggrastat Bolus: 46 ml Intravenous Basim Colin RN 11:05 AM Aggrastat 12.5mg/250ml 16.5 ml/hr Intravenous Basim Colin RN 11:22 AM Plavix 75 mg Orally Basim Colin RN ASA Classification: CLASS II- Mild systemic disease (i.e. well-controlled diabetes, hypertension, asthma, cigarette smoking) [place] Score Preprocedure Postprocedure Activity 2- Moves 4 extremities sustained head lift Activity 2- Moves 4 extremities sustained head lift Circulation 2- SBP +/= 20 points of pre-anesthetic level Circulation 2- SBP +/= 20 points of pre-anesthetic level Consciousness 2- Awake and alert oriented x 3 Consciousness 2- Awake and alert oriented x 3 O2 Saturation 2- Able to maintain O2 satruation of 92% on room air O2 Saturation 2- Able to maintain O2 satruation of 92% on room air Respiratory 2- Able to deep breathe and cough well Respiratory 2- Able to deep breathe and cough well Total Score 10 Total Score 10 Contrast Agent: Isovue Diagnostic Contrast: 171 ml Total Contrast: 171 ml Fluoro Dose: 6805 mGy Activated Clotting Time Time Seconds to Clot 11:04 AM 108 Procedure Log Time Note Enter By 10:10 AM CathStat 10:23 AM Case Start 10:34 AM Pt arrived to photo lab specialist 2 at 10:34 [place] 10:34 AM Juan Antonio Calixto RT (R) Position: Scrub Time in: 10:34 [place] 10:35 AM Talat Montoya RN Position: Monitor Time in: 10:34 [place] 10:35 AM Basim Colin RN Position: Rigger Third Time in: 10:35 [place] 10:35 AM Patient charges- Angio tray pack, Navilyst 3mm J, Pulse Oximetry and ACIST tubing and transducer [place] 10:35 AM IV Supplies used: J loop Angio Cath. [place] 10:35 AM Physician arrived 10:35 [place] 10:35 AM ASA Class CLASS II- Mild systemic disease (i.e. well-controlled diabetes, hypertension, asthma, cigarette smoking) [place] 10:35 AM Sandi completed [place] 10:35 AM Sign in performed according to hospital policy. Informed consent was obtained. [place] 10:35 AM Procedure start 10:35 [place] 10:35 AM Vitals capture started with the following parameters, Patient=Adult, Interval=5 min, Initial Ztpwilub=809 mmHg, Deflation Rate=5 mmHg, Cuff placed on Right Arm 10:37 AM HR=55 bpm, JRQD=022/73 mmhg, SpO2=98 % 10:39 AM Time: 10:39 Patient comfortable and pain free: Yes [place] 10:39 AM Time: 10:39LOC: 5 = Fully awake and oriented or at pre-proc level [place] 10:39 AM Time: 10:39 Oxygen on at 2 L/min per nasal cannula by Basim Colin RN [place] 10:40 AM Time: 10:40 Versed 2 mg Intravenous Given by Basim Colin RN [place] 10:40 AM Time: 10:40 Fentanyl 50 mcg Intravenous Given by Basim Colin RN [place] 10:40 AM Recorded ECG: HR=58 Condition=Condition 1 10:41 AM HR=57 bpm, WVRF=283/67 mmhg, SpO2=95.0 %, Resp=27 B/min, Comment=SB 10:42 AM Pressure channel 1 zero failed. 10:43 AM Pressure channel 1 zeroed. 10:45 AM Clinical Presentation: Non-STEMI [place] 10:46 AM HR=56 bpm, SNDP=729/66 mmhg, SpO2=97.0 %, Resp=21 B/min, Comment=SB 10:47 AM Time out was performed according to hospital policy. Conscious sedation and anesthesia was achieved (see medication log with in this report above) [place] 10:48 AM Time: 10:47 20 ml Lidocaine 2% to right groin Subcutaneous Given by Toney Caldwell MD, [facility] [place] 10:48 AM Access obtained by percutaneous puncture. 5Fr 10cm Terumo [place] sheath placed in right Femoral artery. [id number] [place] 10:49 AM 5Fr FR 4 catheter inserted over the wire [facility] [place] 10:49 AM 0.035 145cm Navilyst 3mmJ wire [id number] [place] 10:50 AM Recorded Pressure: Ao, HR=55, Condition=Condition 1 (Aorta) Ao 118/60/85 10:50 AM RCA angiography performed in multiple views. [place] 10:51 AM Recorded Pressure: Ao, HR=57, Condition=Condition 1 (Aorta) Ao 100/63/80 10:51 AM HR=56 bpm, JRCK=560/66 mmhg, SpO2=97.0 %, Resp=13 B/min, Comment=SB 10:52 AM SVG to the 1st OM angio performed in multiple views. [place] 10:52 AM Catheter removed [place] 10:53 AM Coronary Dominance: right [place] 10:53 AM Lesion found in Proximal RCA. Pre Stenosis: 40 Pre WALTER Flow: [place] 10:53 AM 5Fr IM catheter inserted over the wire [id number] [place] 10:53 AM Left DEDRICK to the LAD angio performed in multiple views. [place] 10:54 AM Lesion found in Mid RCA. Pre Stenosis: 30 Pre WALTER Flow: [place] 10:54 AM Lesion found in Distal RCA. Pre Stenosis: 30 Pre WALTER Flow: [place] 10:54 AM Time: 10:39LOC: 4 = Oriented but drowsy [place] 10:54 AM Catheter removed [place] 10:55 AM 5Fr FL 4 catheter inserted over the wire [facility] c[place] 10:55 AM LCA angiography performed in multiple views. [place] 10:56 AM HR=60 bpm, MQSW=023/62 mmhg, SpO2=98.0 %, Resp=14 B/min, Comment=SB 10:56 AM Lesion found in Proximal LAD. Pre Stenosis: 95 Pre WALTER Flow: [place] 10:56 AM Lesion found in Mid LAD. Pre Stenosis: 80 Pre WALTER Flow: [place] 10:57 AM Lesion found in Mid Circumflex. Pre Stenosis: 70 Pre WALTER Flow: [place] 10:57 AM Catheter removed [place] 10:58 AM 5Fr Pigtail catheter inserted over the wire [facility] c[place] 10:58 AM Catheter crossed the aortic valve and was selectively placed in the left ventricle. Pressures recorded on pullback for left heart catheterization. c[place] 10:59 AM Pressure channel 1 zero failed. 10:59 AM Pressure channel 1 zeroed. 11:00 AM Recorded Pressure: LV, HR=63, Condition=Condition 1 (Left Ventricle) LV 105/-3/7 11:00 AM Bolus angiogram of left Ventricle complete: 10 ml/sec for a total of 25 mls c[place] 11:00 AM Recorded Pressure: LV, Ao, LV, HR=63, Condition=Condition 1 (Left Ventricle) LV 127/-3/14, (Aorta) Ao 117/48/79, (Left Ventricle) LV 0/0/0 11:01 AM Catheter removed [place] 11:01 AM HR=61 bpm, NNUJ=101/73 mmhg, SpO2=96.0 %, Resp=13 B/min, Comment=SB 11:02 AM Sheath exchanged for a 6 Fr 10 cm Allen BrothersumRostima [place] sheath [id number] [place] 11:03 AM 6Fr JR 4 SH Runway guide catheter was used to cannulate the PCI vessel successfully. reused? No [place] 11:04 AM At 11:04 the ACT was 108 seconds. [place] 11:04 AM Time: 11:04 Heparin 4000 units Intravenous Given by Basim Colin RN [place] 11:05 AM .014 [place] 190cm guide wire across target lesion- successful. reused? No [place] 11:05 AM Time: 11:05 Aggrastat Bolus: 46 ml Intravenous Given by Basim Colin RN Taylor pump [place] 11:05 AM Time: 11:05 Aggrastat 12.5mg/250ml 16.5 ml/hr Intravenous Given by Basim Colin RN Taylor pump [place] 11:06 AM Inflation device was opened. [place] 11:06 AM 2.25mm x 12mm Synergy drug-eluting stent across target lesion- successful Lot #[id number] [place] 11:06 AM HR=62 bpm, ADRK=562/75 mmhg, SpO2=97.0 %, Resp=14 B/min 11:07 AM Recorded Pressure: Ao, HR=61, Condition=Condition 1 (Aorta) Ao 109/60/81 11:09 AM Recorded Pressure: Ao, HR=60, Condition=Condition 1 (Aorta) Ao 115/28/80 11:09 AM Stent deployed @ 11 [place] for 14 seconds [place] 11:09 AM Time: 10:54LOC: 4 = Oriented but drowsy [place] 11:10 AM Lesion found in Ramus. Pre Stenosis: 99 Pre WALTER Flow: [place] 11:11 AM 3.5 mm x 6mm NC Emerge balloon across target lesion- successful. reused? No [place] 11:11 AM HR=60 bpm, HAPY=508/73 mmhg, SpO2=99.0 %, Resp=15 B/min, Comment=SB 11:11 AM Recorded Pressure: Ao, HR=59, Condition=Condition 1 (Aorta) Ao 111/54/79 11:14 AM Balloon inflated @ 12 [place] for 19 seconds [place] 11:15 AM Balloon inflated @ 12 [place] for 6 seconds [place] 11:15 AM Recorded Pressure: Ao, HR=62, Condition=Condition 1 (Aorta) Ao 114/58/83 11:16 AM HR=60 bpm, YSHZ=730/74 mmhg, SpO2=98.0 %, Resp=14 B/min, Comment=SB 11:16 AM 2.75mm x 16mm Synergy drug-eluting stent across target lesion- successful Lot #[id number] [place] 11:19 AM Stent deployed @ 12 [place] for 25 seconds [place] 11:19 AM Lesion found in 1st Marginal. Pre Stenosis: 99 Pre WALTER Flow: [place] 11:20 AM Recorded Pressure: Ao, HR=62, Condition=Condition 1 (Aorta) Ao 131/57/87 11:21 AM Guide wire removed intact. [place] 11:21 AM Guide catheter removed intact. [place] 11:21 AM Procedure completed at 11:21 03/30/2018 [place] 11:21 AM HR=61 bpm, HTFK=268/77 mmhg, JrN6=269.0 %, Resp=17 B/min, Comment=SB 11:21 AM Did you address WALTER flow and Dominance? Yes [place] 11:23 AM Time: 11:22 Plavix 75 mg Orally Given by Basim Colin RN [place] 11:25 AM Sign out completed: Radiation Dose 745.22 mGy, 6805.21 cGy/cm2 Fluoro Time: 8.6 Isovue 370 - 200ml contrast 171 ml given by [facility]dwell MD, [facility] Complications: None. The patient was discharged out of the cathode maker in stable condition. Cardiac Rehab Consult needed: YesConfirmed administered medications: Yes [place] 11:25 AM Isovue 370 - 200ml,2 Bottle(s) used. [place] 11:25 AM Arterial sheath pulled, Mynx closure device used and was Successful [id number] S/N. [place] 11:25 AM Estimated Blood Loss: minimal [place] 11:25 AM Post ECG Sinus Bradycardia [place] 11:25 AM Post Blood Pressure 137/77 [place] 11:25 AM Information taught Cardiac Cath, PCI, and Mynx [place] 11:26 AM Education needs Procedure, Plan of Care, and Disease Process [place] 11:26 AM Learning barriers :None [place] 11:26 AM Education Methods Verbal [place] 11:26 AM Education evaluation Able to repeat information [place] 11:26 AM Site status No bleeding/hematoma - Rt Groin as reported by Juan Antonio Calixto RT (R) at 11:26 [place] 11:26 AM Opsite applied [place] 11:26 AM Plavix, Effient or Brilinta given Yes [place] 11:26 AM Delay to floor No [place] 11:26 AM Family placed in consult room. [place] 11:26 AM Complications: None [place] 11:26 AM HR=60 bpm, LZPM=176/80 mmhg, SpO2=99 %, Resp=17 B/min 11:31 AM Report given to Taina CASPER Pt taken to 2N Room #5. 11:31 [place] 11:42 AM Patient out of room: 11:42 c[place] 11:42 AM Complications: None c[place] Complications Complication None None None Hemodynamics Pressures Site Systolic/A Wave Diastolic/V Wave Mean AO 118 60 85 AO 100 63 80 LV 105 -3 7 LV 127 -3 14 AO 117 48 79 LV 0 0 0 AO 109 60 81 AO 115 28 80 AO 111 54 79 AO 114 58 83 AO 131 57 87 Post Procedure Information Blood Pressure: 137/77 mmHg Rhythm: Sinus Bradycardia Post procedural instructions were given Closure Device Time Device Success/Fail 03/30/2018 11:26:00 AM MynxGrip Successful Site Checks Time Location Status Staff Sheath In? Note 11:26 AM Rt Groin No bleeding/hematoma Juan Antonio Calixto RT (R) NO Pulses Updated by Talat Montoya RN on 03/30/2018 11:43:33 AM electronically signed on 03/30/2018 11:44:25 AM with status of Final
[2018-03-30] MEDS: Heparin 25,000 UNIT/500 ML D5W 25,000 UNIT/500 ML BAG IVC SCH (12:08)
--- NOTE | 2018-03-30 18:53 | Discharge Summary ---
- NOTES TO OUTPATIENT PROVIDER Notes to Outpatient Provider: Patient to follow-up with cardiology Orders not resulted at time of discharge: Pending orders 03/28/18 22:12 ECG 12 lead ECG [ECG] Stat 03/30/18 11:27 ECG 12 lead ECG [ECG] Routine Date of Encounter: 03/30/18 Time of Encounter: 11:00 - Discharge Diagnosis (1) Non-STEMI (non-ST elevated myocardial infarction) Priority: Primary Status: Acute (2) CAD (coronary artery disease) Priority: Primary Status: Acute Qualifiers: Coronary Disease-Associated Artery/Lesion type: [place] artery [place] vs. transplanted heart: [place] heart Associated angina: with stable angina Qualified Code(s): I25.118 - Atherosclerotic heart disease of [place] coronary artery with other forms of angina pectoris (3) Bronchitis Priority: Secondary Status: Acute (4) Hypertension Priority: Secondary Status: Chronic Qualifiers: Hypertension type: essential hypertension Qualified Code(s): I10 - Essential (primary) hypertension (5) Diabetes Priority: Secondary Status: Chronic Qualifiers: Diabetes mellitus type: type 2 Diabetes mellitus termite control servicer insulin use: without termite control servicer use Diabetes mellitus complication status: with circulatory complication Diabetes mellitus complication detail: with other circulatory complications Qualified Code(s): E11.59 - Type 2 diabetes mellitus with other circulatory complications (6) Hyperlipidemia Priority: Secondary Status: Chronic Qualifiers: Hyperlipidemia type: pure hypercholesterolemia Qualified Code(s): E78.00 - Pure hypercholesterolemia, unspecified; E78.0 - Pure hypercholesterolemia Hospital course: Patient is a 67-year-old male with past medical history significant for diabetes , hypertension and coronary artery disease status post CABG in November 2016 who initially presented to [facility] due to chest pain. Patient presented to the ED after one hour episode of 10 out of 10 chest pain. Chest pain described as stabbing, right-sided associated with numbness and tingling in his right arm. Patient took 1 nitroglycerin which reduced his pain is 6 out of 10. Laboratory workup was notable for an elevated blood sugar over 500, troponin of 0.23 an elevated white blood cell count of 18.4. EKG showed normal sinus rhythm with no ST or T-wave abnormalities. A repeat EKG here at [facility] was also unremarkable except for one PVC. Patient received loading dose of aspirin and was started on a heparin drip. He is currently asymptomatic and stable. During patients hospital stay patient was found to have non-STEMI and cardiology was consulted with recommendations for left heart catheterization which was done and stents were placed. Patient requesting to go home the same day of left heart catheterization or he will signout AMA and cardiology approves patient being discharged today. Patient will be placed on dual antiplatelet therapy with aspirin and Plavix and to follow-up with cardiology as an outpatient. - Time Spent with Patient Total time spent providing and/or coordinating discharge services: Less than 30 minutes - Discharge Medications Prescriptions: Clopidogrel [Plavix] 75 mg PO DAILY #30 tablet Home Medications: Calcium Carbonate/Vitamin D3 [Calcium 600-Vit D3 800 Tab] 1 tab PO DAILY [History] Duloxetine HCl [Cymbalta] 60 mg PO DAILY 12/07/16 [History] Ibuprofen 800 mg PO TID PRN 12/07/16 [History] Lisinopril [Zestril] 5 mg PO DAILY 12/07/16 [History] metFORMIN [Glucophage] 1,000 mg PO BIDWM 12/07/16 [History] Aspirin 81 mg PO DAILY #60 tab.chew 12/16/16 [Rx] Atorvastatin [Lipitor] 40 mg PO HS #30 tablet 12/16/16 [Rx] Metoprolol [Lopressor] 12.5 mg PO BID #60 tablet 12/22/16 [Rx] Linagliptin [Tradjenta] 5 mg PO DAILY 07/26/17 [History] Albuterol Sulfate [Ventolin Hfa] 2 puff IH Q4H PRN 03/29/18 [History] Empagliflozin [Jardiance] 10 mg PO DAILY 03/29/18 [History] Clopidogrel [Plavix] 75 mg PO DAILY #30 tablet 03/30/18 [Rx] Allergies/Adverse Reactions: 3 Allergy/AdvReac Type Severity Reaction Status Date / Time albuterol AdvReac See Verified 07/26/17 17:36 Comments Date of admission: 03/29/18 18:31 Primary care physician: Declan Vick Consults: 03/28/18 23:26 Consult to Cardiology [CONS] Routine Comment: Consulting Provider: Cardiology Delma Reason for Consult: Concern for an NSTEMI Call Completed: No - Constitutional Vitals: Temp Pulse Resp BP Pulse Ox 98.6 F 63 18 145/67 96 03/30/18 16:23 03/30/18 16:23 03/30/18 16:23 03/30/18 16:23 03/30/18 16:23 Exam: Gen.: Nonacute distress, alert and oriented 3 Cardiovascular: Normal S1 and S2 regular rate rhythm no murmurs rubs or gallops Skin: Normal color - Patient Status Disposition: Home, Self-Care - Discharge Instructions Follow Up With: Declan Vick DO [Primary Care Provider] -
[2018-03-31 07:19] VITALS: BP 137/92
[2018-03-31] MEDS: Aspirin 81 MG TAB.CHEW PO SCH (07:54)
[2018-03-31] MEDS: Insulin LISPRO 300 UNITS/3 ML VIAL SQ SCH (07:54)
--- NOTE | 2018-03-31 09:39 | Cardiology Progress Note ---
Date of Encounter: 03/31/18 Time of Encounter: 09:36 Assessment and Plan (1) Non-STEMI (non-ST elevated myocardial infarction) Current Visit: No Status: Acute Troponins 0.56, 1.42, 0.94. CTA r/o dissection. [facility] yesterday--successful NICOLE to prox and distal SVG-OM graft. EF 60%. TTE EF preserved. DAPT (ASA and Plavix) uninterrupted x 1 year. Pt verbalizes understanding. Continue BB and Statin. Right femoral access site healing well. No bleeding, hematoma or ecchymosis noted. Restrictions discussed. Cardiology signing off. Reconsult PRN. Will coordinate outpt follow-up in 1 week. (2) CAD (coronary artery disease) Current Visit: No Status: Acute CABG x2 11/2016, as above s/p PCI yesterday. ASA, Plavix, Statin, BB. Qualifiers: Coronary Disease-Associated Artery/Lesion type: [place] artery [place] vs. transplanted heart: [place] heart Associated angina: with stable angina Qualified Code(s): I25.118 - Atherosclerotic heart disease of [place] coronary artery with other forms of angina pectoris Discussion w patient/family: The assessment and plan as outlined above was discussed with the patient and/or family members who expressed understanding and agreement. All questions were answered. Thank you for involving us in the care of your patient. Please call with any questions. I will discuss all the above with Dr. Caldwell and make changes as necessary. Subjective Principal diagnosis: NSTEMI Interval history: S/P LHC yesterday with successful NICOLE to prox and distal SVG-OM graft. EF 60%. Pt denies acute complaints overnight. Denies chest pain or dyspnea. Objective Vital Signs, Last 4 Hours Temp Pulse Resp BP Pulse Ox 03/31/18 07:16 98.4 F 62 16 137/92 98 Vital Signs Temp Pulse Resp BP Pulse Ox 03/31/18 07:16 98.4 F 62 16 137/92 98 03/31/18 03:47 98.5 F 55 16 113/60 94 03/30/18 23:44 99.2 F 59 18 135/84 95 03/30/18 19:45 98.3 F 67 20 148/75 99 03/30/18 16:23 98.6 F 63 18 145/67 96 03/30/18 14:13 54 133/67 97 03/30/18 13:02 56 133/69 92 03/30/18 12:38 57 130/68 94 03/30/18 12:06 58 121/76 03/30/18 11:50 56 142/83 96 Intake and Output 03/30/18 03/31/18 03/31/18 23:59 07:59 15:59 Intake Total 640 / 640 Balance 640 / 640 Intake: Oral 640 / 640 Other: Meal Dinner Percent of Meal Consumed 100% Weight 90.1 kg Blood Glucose* 285 186 Patient Weight 03/31/18 23:59 Weight 90.1 kg General: Conversant, No Apparent Distress HEENT: Atraumatic, Normocephaly, Mucus Membranes Moist Neck: No JVD, Normal carotid pulses Cardiac: Reg Rate and Rhythm, Normal S1 and S2, No Murmur Lungs: Normal Breath Sounds, No Wheeze, Rales, Rhonchi Neuro: Alert and responsive, No focal deficits noted Abdomen: Soft, Non-Tender Skin: Other (right femoral access site healing well. No bleeding, hematoma or ecchymosis noted.) Musculoskeletal: No Chest Wall Tenderness Extremities: No Clubbing, No Cyanosis, No Edema, Normal Pulses Results 03/30/18 08:19 03/30/18 08:19 Vital Signs Temp Pulse Resp BP Pulse Ox 03/31/18 07:16 98.4 F 62 16 137/92 98 03/31/18 03:47 98.5 F 55 16 113/60 94 03/30/18 23:44 99.2 F 59 18 135/84 95 03/30/18 19:45 98.3 F 67 20 148/75 99 03/30/18 16:23 98.6 F 63 18 145/67 96 03/30/18 14:13 54 133/67 97 03/30/18 13:02 56 133/69 92 03/30/18 12:38 57 130/68 94 03/30/18 12:06 58 121/76 03/30/18 11:50 56 142/83 96 Intake and Output 03/30/18 03/31/18 03/31/18 23:59 07:59 15:59 Intake Total 640 / 640 Balance 640 / 640 Intake: Oral 640 / 640 Other: Meal Dinner Percent of Meal Consumed 100% Weight 90.1 kg Blood Glucose* 285 186 Patient Weight 03/31/18 23:59 Weight 90.1 kg - Imaging and Cardiology Echo: report reviewed Cardiac cath: report reviewed - EKG Interpretation EKG results cardiology: other (12 hr tele AVG HR 62, SR, no significant pauses or arrhythmias noted.) Consult Discharge Plan - Plan Instructions: Clopidogrel (By mouth) Additional Instructions: RISK FACTORS: STOP SMOKING: If you smoke, STOP. Smoking or tobacco use significantly increases your risk of heart disease because nicotine causes the arteries to narrow or constrict. It also causes fats to stick to the artery. Your chances of having a heart attack are greatly increased if you continue to smoke. For more information, call the education line for smoking cessation 8-917-LGEWFXV EAT A LOW FAT/CHOLESTEROL/SODIUM DIET: This diet may help reduce your chances of having a heart attack. LIFTING: Avoid lifting anything more than 10 pounds for 5-7 days Prior to straining, laughing, sneezing and/or coughing, apply manual pressure directly over insertion site. ACTIVITY: You may walk or climb stairs as tolerated You can resume sexual activity as tolerated In general, you are encouraged to engage in a minimum of 30 minutes or more of moderate intensity physical activity, such as brisk walking, daily or at least 3 -4 times weekly BATHING Do not submerge the site into water (bath tub, hot tub, swimming pool) for 1 week. This can be a source for infection into the blood stream. You may shower after 24 hours SITE CARE: After 24 hours, you may remove the dressing and leave the site open to air. Keep the site clean and dry. Clean gently and pat dry. You can expect bruising and tenderness that gradually resolve within a week or two. Return to work as instructed per your physician Resume driving as instructed per physician Keep all scheduled follow up appointments Resume medications as instructed IMPORTANT: If prescribed a Platelet Aggregation Inhibitor such as, Plavix, Brilinta or Effient: Duration of therapy is minimum one year These medications are often used in combination with Aspirin in prevention of future heart attacks Never discontinue unless consult with your Aviation Maintenance Technician STROKE (CVA) Risk factors for a stroke are: Age, cigarette smoking, diabetes, excessive alcohol consumption, family history, high blood pressure, overweight, physical inactivity, prior stroke, heart attack, diagnosis of carotid artery stenosis or other artery disease. Warning signs: Sudden numbness or weakness of the face, arm or leg; especially on one side of the body, sudden confusion, trouble speaking or understanding, sudden trouble seeing in one or both eyes, sudden trouble walking, dizziness, loss of balance or coordination, sudden severe headache with no cause. Call 911 or go to the Emergency Room. CONGESTIVE HEART FAILURE: If you have been diagnosed with Congestive Heart Failure (CHF) and your symptoms return, make an appointment with your physician Weigh yourself daily. Notify your physician if you have a weight gain of two or more pounds in one day or five or more pounds in one week. If you experience any difficulty breathing, please call 911 BLEEDING: Although the risk of bleeding is minimal, it can happen. If you have any bleeding from the site, apply firm pressure above the puncture site for 10-15 minutes. If the bleeding does not stop, continue manual pressure and call 911 Contact your physician if: You develop a fever greater than 101 degrees Fahrenheit Your site becomes reddened or has any drainage You have an increase in pain or burning at the site or if a large knot forms at the site. If you experience chest pain, shortness of breath, dizziness, or extreme tiredness, stop the activity and rest. Please notify your physicians office if you experience any of these symptoms and they are not relieved by rest please call 911! Referrals: Toney Caldwell MD [Partnered Physician] - 04/25/18 10:15 am Declan Vick DO [Primary Care Provider] - 04/08/18 11:00 am (PLEASE FAX OVER DISCHARGE SUMMARY TO ) Prescriptions: Clopidogrel [Plavix] 75 mg PO DAILY #30 tablet
[2018-03-31 09:52] LABS: Basophils % 0.4 %; Eosinophils # 0.2 K/mcL (0.0-0.6); Hematocrit 46.5 % (37.5-50.1); Hemoglobin 15.9 g/dL (12.9-16.9); Immature Granulocytes % 0.5 % (0-4); Lymphocytes % 20.7 %; Mean Corpuscular HGB Conc 34.2 g/dL (31.6-35.5); Mean Corpuscular Hemoglobin 30.1 pg (28.0-33.3); Mean Corpuscular Volume 87.9 fL (83.0-100.0); Mean Platelet Volume 9.3 fL (9.4-12.4); Monocytes # 0.7 K/mcL (0.0-1.3); Monocytes % 6.7 %; Neutrophils # 6.8 K/mcL (1.6-8.9); Platelet Count 249 K/mcL (140-400); Red Blood Count 5.29 M/mcL (4.19-5.50); Red Cell Distribution Width 12.3 % (11.5-14.5); Segmented Neutrophils % 69.7 %
[2018-03-31 10:17] LABS: BUN/Creatinine Ratio 22 (6-26); Blood Urea Nitrogen 18 mg/dL (8-23); Calcium 9.3 mg/dL (8.6-10.3); Carbon Dioxide 27 mEq/L (23-29); Chloride 102 mEq/L (98-107); Glucose 280 mg/dL (70-105); Osmolality,Calculated 292 (280-300); Potassium 4.1 mEq/L (3.5-5.1); Sodium 135 mEq/L (136-145); eGFR For Non-African Americans > 60 (> 60)
--- NOTE | 2018-03-31 15:06 | Electrocardiograph Report ---
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
--- NOTE | 2018-03-31 18:45 | Internal Med Progress Note ---
Hospitalist Progress Note - Encounter Date of Encounter: 03/31/18 Time of Encounter: 11:00 - Subjective Interval History: Patient with no swelling at [facility] site will Discharge - Exam Vitals: Temp Pulse Resp BP Pulse Ox 98.4 F 62 16 137/92 98 03/31/18 07:16 03/31/18 07:16 03/31/18 07:16 03/31/18 07:16 03/31/18 07:16 Exam: Gen.: Nonacute distress, alert and oriented 3 Skin: Normal color - Assessment and Plan (1) Non-STEMI (non-ST elevated myocardial infarction) Status: Acute Assessment and Plan: Patient presented with chest pain found to have elevated troponins of 0.23 and then to 0.56 Continue heparin drip Cardiology consulted and appreciate recommendations. - Time Spent with Patient Total time spent is greater than 50% in coordination of care (as documented) at patient's floor/unit and/or counseling patient: Internal Medicine: Result - Labs CBC & Chem 7: 03/31/18 09:40 03/31/18 09:40 Labs: Short CBC 03/31/18 Range/Units 09:40 WBC 9.8 (4.3-11.1) K/mcL Hgb 15.9 (12.9-16.9) g/dL Hct 46.5 (37.5-50.1) % Plt Count 249 (140-400) K/mcL Neutrophils # 6.8 (1.6-8.9) K/mcL BMP 03/31/18 09:40 Sodium 135 L Potassium 4.1 Chloride 102 Carbon Dioxide 27 BUN 18 Creatinine 0.81 Glucose 280 H Calcium 9.3 - ABG Interpretation ABG results: PT/INR, D-dimer PT 10.5 Seconds (9.4-12.1) 03/29/18 00:51 Consult Discharge Plan - Plan Instructions: Clopidogrel (By mouth) Additional Instructions: RISK FACTORS: STOP SMOKING: If you smoke, STOP. Smoking or tobacco use significantly increases your risk of heart disease because nicotine causes the arteries to narrow or constrict. It also causes fats to stick to the artery. Your chances of having a heart attack are greatly increased if you continue to smoke. For more information, call the education line for smoking cessation 9-842-XQPXJWY EAT A LOW FAT/CHOLESTEROL/SODIUM DIET: This diet may help reduce your chances of having a heart attack. LIFTING: Avoid lifting anything more than 10 pounds for 5-7 days Prior to straining, laughing, sneezing and/or coughing, apply manual pressure directly over insertion site. ACTIVITY: You may walk or climb stairs as tolerated You can resume sexual activity as tolerated In general, you are encouraged to engage in a minimum of 30 minutes or more of moderate intensity physical activity, such as brisk walking, daily or at least 3 -4 times weekly BATHING Do not submerge the site into water (bath tub, hot tub, swimming pool) for 1 week. This can be a source for infection into the blood stream. You may shower after 24 hours SITE CARE: After 24 hours, you may remove the dressing and leave the site open to air. Keep the site clean and dry. Clean gently and pat dry. You can expect bruising and tenderness that gradually resolve within a week or two. Return to work as instructed per your physician Resume driving as instructed per physician Keep all scheduled follow up appointments Resume medications as instructed IMPORTANT: If prescribed a Platelet Aggregation Inhibitor such as, Plavix, Brilinta or Effient: Duration of therapy is minimum one year These medications are often used in combination with Aspirin in prevention of future heart attacks Never discontinue unless consult with your Dinkey Motor Operator STROKE (CVA) Risk factors for a stroke are: Age, cigarette smoking, diabetes, excessive alcohol consumption, family history, high blood pressure, overweight, physical inactivity, prior stroke, heart attack, diagnosis of carotid artery stenosis or other artery disease. Warning signs: Sudden numbness or weakness of the face, arm or leg; especially on one side of the body, sudden confusion, trouble speaking or understanding, sudden trouble seeing in one or both eyes, sudden trouble walking, dizziness, loss of balance or coordination, sudden severe headache with no cause. Call 911 or go to the Emergency Room. CONGESTIVE HEART FAILURE: If you have been diagnosed with Congestive Heart Failure (CHF) and your symptoms return, make an appointment with your physician Weigh yourself daily. Notify your physician if you have a weight gain of two or more pounds in one day or five or more pounds in one week. If you experience any difficulty breathing, please call 911 BLEEDING: Although the risk of bleeding is minimal, it can happen. If you have any bleeding from the site, apply firm pressure above the puncture site for 10-15 minutes. If the bleeding does not stop, continue manual pressure and call 911 Contact your physician if: You develop a fever greater than 101 degrees Fahrenheit Your site becomes reddened or has any drainage You have an increase in pain or burning at the site or if a large knot forms at the site. If you experience chest pain, shortness of breath, dizziness, or extreme tiredness, stop the activity and rest. Please notify your physicians office if you experience any of these symptoms and they are not relieved by rest please call 911! Referrals: Toney Caldwell MD [Partnered Physician] - 04/25/18 10:15 am Declan Vick DO [Primary Care Provider] - 04/08/18 11:00 am (PLEASE FAX OVER DISCHARGE SUMMARY TO ) Prescriptions: Clopidogrel [Plavix] 75 mg PO DAILY #30 tablet
== END 2018-03-31 11:25 | disposition home or self-care (01) | DRG 247 ==
LOC: 2NENU → SUATTDRO 21:59 → 2NNU 03-30 11:57
PROVIDERS: ADMIT Internal Medicine; ATTEND Hospitalist

== ENCOUNTER 2018-09-26 10:32 | Observation (INO) ==
--- NOTE | 2018-09-26 11:35 | Emergency Department Note ---
Disposition Clinical Impression: Chest pain Qualifiers: Chest pain type: unspecified Qualified Code(s): R07.9 - Chest pain, unspecified Disposition: Still a Patient Condition: Good Referrals: Declan Vick DO [Primary Care Provider] - Forms: ED Satisfaction Letter Time of Disposition: 12:31 General Adult HPI - General Chief complaint: ED Chest Pain Stated complaint: General,Cardiac HX Time Seen by Provider: 09/26/18 11:08 Source: patient Limitations: no limitations Nursing Notes Reviewed: Yes Vital Signs Reviewed: Yes - History of Present Illness HPI Narrative: Patient is a 67 year old male with past medical history significant for diabetes, CAD, bypass surgery one year ago and stent placement 5-6 months ago. Reports intermittent pain in his chest and back. Patient primarily localizes tello n to his upper left back and right shoulder regions. States this has been intermittent for the past few months. His primary care provider started him on ibuprofen which does improve the pain. States this pain has been worse this week and is occuring every night. With most recent pain starting last evening and has persist through today. He has not tried any medications this time. Denies worsening shortness of breath, dizziness, loss of consciousness, or leg swelling. No nausea, vomiting, abdominal pain or diaphoresis. Pain is not exertional in nature. Patient does have nitro, but has not had to use this. Pt Subjective Complaint: chest pain Onset (ago): day(s) Location: chest, back Radiation: non-radiation Pain Severity: moderate Pain Scale: 7 Quality: sharp Improves with: medication Worsens with: nothing Associated symptoms: Reports: denies other symptoms Treatments Prior to Arrival: none - Related Data Home Medications Medication Instructions Recorded Confirmed Calcium Carbonate/Vitamin D3 1 tab PO DAILY 12/07/16 03/28/18 [Calcium 600-Vit D3 800 Tab] Duloxetine HCl [Cymbalta] 60 mg PO DAILY 12/07/16 03/28/18 Ibuprofen 800 mg PO TID PRN 12/07/16 03/28/18 Lisinopril [Zestril] 5 mg PO DAILY 12/07/16 03/28/18 metFORMIN [Glucophage] 1,000 mg PO BIDWM 12/07/16 03/28/18 Linagliptin [Tradjenta] 5 mg PO DAILY 07/26/17 03/28/18 Albuterol Sulfate [Ventolin Hfa] 2 puff IH Q4H PRN 03/29/18 03/29/18 Empagliflozin [Jardiance] 10 mg PO DAILY 03/29/18 03/29/18 Previous Rx's Medication Instructions Recorded Aspirin 81 mg PO DAILY #60 tab.chew 12/16/16 Atorvastatin [Lipitor] 40 mg PO HS #30 tablet 12/16/16 Metoprolol [Lopressor] 12.5 mg PO BID #60 tablet 12/22/16 Clopidogrel [Plavix] 75 mg PO DAILY #30 tablet 03/30/18 Allergies Allergy/AdvReac Type Severity Reaction Status Date / Time albuterol AdvReac See Verified 09/26/18 08:34 Comments Constitutional: Denies: fever, chills Eyes: Denies: vision change ENT ED: Denies: dysphagia Cardiovascular: Reports: chest pain. Denies: palpitations, syncope Respiratory: Reports: dyspnea (at baseline). Denies: cough, wheezes Gastrointestinal: Denies: abdominal pain, nausea, vomiting Musculoskeletal: Reports: other (right should and left upper back pain) Integumentary: Denies: rash Neurological: Denies: headache Past Medical History - Past Medical History Source: patient, nursing notes reviewed Medical history: Reports: coronary artery disease, diabetes, hyperlipidemia, hypertension, myocardial infarction Surgical history: Reports: angioplasty/stent, other Psychiatric history: Reports: anxiety, depression - Social History Smoking Status: Never smoker Smokeless Tobacco Status: No Alcohol use: Reports: none Drug use: Reports: none Physical Exam - General Limitations: no limitations General appearance: alert, in no apparent distress - Eye Eye exam: Absent: scleral icterus, conjunctival injection - ENT ENT exam: normal oropharynx, mucous membranes moist - Neck Neck exam: Present: trachea midline. Absent: lymphadenopathy - Chest Chest inspection: Present: symmetric chest wall rise - Respiratory Respiratory exam: Present: normal lung sounds bilaterally. Absent: respiratory distress, wheezes, accessory muscle use, prolonged expiratory phase - Cardiovascular Cardiovascular exam: Present: regular rate, normal rhythm. Absent: systolic murmur, diastolic murmur - Expanded Cardiovascular Exam Peripheral pulses: 2+: radial (R), radial (L) - Abdominal Exam Abdominal exam: Present: soft, Non-Tender. Absent: distention, guarding, r ebound - Extremities Exam Extremities exam: Absent: pedal edema, calf tenderness - Back Exam Back exam: Present: paraspinal tenderness (left upper paraspinal tenderness) - Neurological Exam Neurological exam: Present: alert, oriented X3, CN II-XII intact - Skin Skin exam: Present: warm, dry. Absent: rash Course Course Narrative: Vital signs stable. Patient is hemodynamically stable. Will obtain chest pain evaluation with chest xray, ekg, troponin, cbc, bmp. - Reevaluation(s) Reevaluation #1: Patient was seen and re-evaluated at the bedside. pain is currently a /. His ekg is without acute changes, troponin negative, chest xay negative. Patient is concerned about this pain. Have discussed using shared decision making and patient would like to be admitted for observation. Patient heart score is 5. Will contact hospitalist for admission. Time: 12:00 Reevaluation #2: Patient accepted by Dr. Reeves Time: 12:54 Vital Signs Temperature 98.0 F 09/26/18 10:37 Pulse Rate 105 09/26/18 10:37 Respiratory Rate 20 09/26/18 10:37 Blood Pressure 167/85 09/26/18 10:37 O2 Sat by Pulse Oximetry 97 09/26/18 10:37 Temperature 98.0 F 09/26/18 10:37 Pulse Rate 74 09/26/18 11:36 Respiratory Rate 20 09/26/18 10:37 Blood Pressure 123/71 09/26/18 11:36 O2 Sat by Pulse Oximetry 98 09/26/18 11:36 Oxygen Delivery Oxygen Delivery Room Air Medical Decision Making - Medical Records Medical records reviewed: Yes I reviewed the patient's medical records. - Lab Data Lab results reviewed: Yes I reviewed the patient's lab results. Result diagrams: 09/26/18 11:21 09/26/18 11:21 Lab Results 09/26/18 09/26/18 09/26/18 Range/Units 11:21 11:21 11:21 WBC 6.6 (4.3-11.1) K/mcL RBC 5.02 (4.19-5.50) M/mcL Hgb 15.6 (12.9-16.9) g/dL Hct 46.0 (37.5-50.1) % MCV 91.6 (83.0-100.0) fL MCH 31.1 (28.0-33.3) pg MCHC 33.9 (31.6-35.5) g/dL RDW 12.5 (11.5-14.5) % Plt Count 242 (140-400) K/mcL MPV 9.0 L (9.4-12.4) fL Immature Gran % 0.3 (0-4) % Seg Neutrophils % 71.3 % Lymphocytes % 16.2 % Monocytes % 9.9 % Eosinophils % 2.0 % Basophils % 0.3 % Neutrophils # 4.7 (1.6-8.9) K/mcL Lymphocytes # 1.1 (0.6-4.6) K/mcL Monocytes # 0.7 (0.0-1.3) K/mcL Eosinophils # 0.1 (0.0-0.6) K/mcL Basophils # 0.0 (0.0-0.2) K/mcL PT 11.6 (9.4-12.1) Seconds INR 1.0 APTT 29.2 (26.0-36.0) Seconds Sodium 139 (136-145) mEq/L Potassium 4.4 (3.5-5.1) mEq/L Chloride 103 (98-107) mEq/L Carbon Dioxide 27 (23-29) mEq/L BUN 17 (8-23) mg/dL Creatinine 0.96 (0.70-1.30) mg/dL Est GFR ( Amer) > 60 (> 60) Est GFR (Non-Af Amer) > 60 (> 60) BUN/Creatinine Ratio 18 (6-26) Glucose 361 H (70-105) mg/dL Calculated Osmolality 304 H (280-300) Calcium 9.5 (8.6-10.3) mg/dL Troponin I < 0.03 (< 0.04) ng/mL - Radiology Data Radiology results reviewed: Yes I reviewed the patient's radiology results. - EKG Data EKG #1 EKG shows normal: sinus rhythm Rate: normal Rhythm: NSR [place]/QRS: normal T wave inversions noted in: aVR When compared to previous EKG there are: no significant changes Interpretation: no acute changes, normal EKG
[2018-09-26 11:37] LABS: Basophils % 0.3 %; Eosinophils # 0.1 K/mcL (0.0-0.6); Hemoglobin 15.6 g/dL (12.9-16.9); Immature Granulocytes % 0.3 % (0-4); Lymphocytes # 1.1 K/mcL (0.6-4.6); Lymphocytes % 16.2 %; Mean Corpuscular HGB Conc 33.9 g/dL (31.6-35.5); Mean Corpuscular Hemoglobin 31.1 pg (28.0-33.3); Mean Corpuscular Volume 91.6 fL (83.0-100.0); Monocytes # 0.7 K/mcL (0.0-1.3); Monocytes % 9.9 %; Neutrophils # 4.7 K/mcL (1.6-8.9); Platelet Count 242 K/mcL (140-400); Red Blood Count 5.02 M/mcL (4.19-5.50); Red Cell Distribution Width 12.5 % (11.5-14.5); Segmented Neutrophils % 71.3 %
[2018-09-26 11:51] LABS: Prothrombin Time 11.6 Seconds (9.4-12.1)
[2018-09-26 11:54] LABS: Activated Partial Thrombo Time 29.2 Seconds (26.0-36.0)
[2018-09-26 11:59] LABS: BUN/Creatinine Ratio 18 (6-26); Blood Urea Nitrogen 17 mg/dL (8-23); Calcium 9.5 mg/dL (8.6-10.3); Carbon Dioxide 27 mEq/L (23-29); Chloride 103 mEq/L (98-107); Glucose 361 mg/dL (70-105); Osmolality,Calculated 304 (280-300); Potassium 4.4 mEq/L (3.5-5.1); Sodium 139 mEq/L (136-145); Troponin I < 0.03 ng/mL (< 0.04); eGFR For Non-African Americans > 60 (> 60)
[2018-09-26] MEDS ORDERED: Aspirin 81 MG TAB.CHEW PO ONE (11:59)
--- NOTE | 2018-09-26 12:06 | Emergency Department Note ---
Disposition Clinical Impression: Chest pain Qualifiers: Chest pain type: unspecified Qualified Code(s): R07.9 - Chest pain, unspecified Disposition: Still a Patient Forms: ED Satisfaction Letter General Adult HPI - General Chief complaint: ED Chest Pain Stated complaint: General,Cardiac HX Time Seen by Provider: 09/26/18 11:08 Source: patient Limitations: no limitations Nursing Notes Reviewed: Yes Vital Signs Reviewed: Yes - History of Present Illness HPI Narrative: Attestation note ED attending note I examined this patient and my medical decision-making was reviewed with the transitional year PGY one resident Dr. Fito Montano. I agree with the documented findings, disposition and treatment plan as described except to the extent set forth below. Briefly: 67-year-old male has a HEART score of 5 history of prior stents then bypass surgery then a stent afterwards last one was 5 months ago no stress testing done since then. Has been having "months" history of pain in his right shoulder normally goes away with ibuprofen he came in today because he was just concerned this been no changes no new shortness of breath no anterior chest pain no diaphoresis no nausea no dyspnea on exertion or orthopnea. Patient's EKG shows sinus rhythm tachycardic at [address]-T changes no acute ischemic changes compared to prior EKG. Patient will get a troponin chest x-ray and other screening labs. We will give him ibuprofen here. We gave the patient the [facility] chest pain shortness shared decision making information sheet and we will discuss options with the patient. Disposition pending Location: chest, back Pain Scale: 7 Quality: sharp Improves with: medication Worsens with: nothing Associated symptoms: Reports: denies other symptoms Treatments Prior to Arrival: none - Related Data Home Medications Medication Instructions Recorded Confirmed Calcium Carbonate/Vitamin D3 1 tab PO DAILY 12/07/16 03/28/18 [Calcium 600-Vit D3 800 Tab] Duloxetine HCl [Cymbalta] 60 mg PO DAILY 12/07/16 03/28/18 Ibuprofen 800 mg PO TID PRN 12/07/16 03/28/18 Lisinopril [Zestril] 5 mg PO DAILY 12/07/16 03/28/18 metFORMIN [Glucophage] 1,000 mg PO BIDWM 12/07/16 03/28/18 Linagliptin [Tradjenta] 5 mg PO DAILY 07/26/17 03/28/18 Albuterol Sulfate [Ventolin Hfa] 2 puff IH Q4H PRN 03/29/18 03/29/18 Empagliflozin [Jardiance] 10 mg PO DAILY 03/29/18 03/29/18 Previous Rx's Medication Instructions Recorded Aspirin 81 mg PO DAILY #60 tab.chew 12/16/16 Atorvastatin [Lipitor] 40 mg PO HS #30 tablet 12/16/16 Metoprolol [Lopressor] 12.5 mg PO BID #60 tablet 12/22/16 Clopidogrel [Plavix] 75 mg PO DAILY #30 tablet 03/30/18 Allergies Allergy/AdvReac Type Severity Reaction Status Date / Time albuterol AdvReac See Verified 09/26/18 08:34 Comments Constitutional: Denies: fever, chills Eyes: Denies: vision change ENT ED: Denies: dysphagia Cardiovascular: Reports: chest pain. Denies: palpitations, syncope Respiratory: Reports: dyspnea (at baseline). Denies: cough, wheezes Gastrointestinal: Denies: abdominal pain, nausea, vomiting Musculoskeletal: Reports: other (right should and left upper back pain) Integumentary: Denies: rash Neurological: Denies: headache Past Medical History - Past Medical History Medical history: Reports: coronary artery disease, diabetes, hyperlipidemia, hypertension, myocardial infarction Surgical history: Reports: angioplasty/stent, other Psychiatric history: Reports: anxiety, depression - Social History Smoking Status: Never smoker Smokeless Tobacco Status: No Alcohol use: Reports: none Drug use: Reports: none Physical Exam - General Limitations: no limitations General appearance: alert, in no apparent distress Course Vital Signs Temperature 98.0 F 09/26/18 10:37 Pulse Rate 105 09/26/18 10:37 Respiratory Rate 20 09/26/18 10:37 Blood Pressure 167/85 09/26/18 10:37 O2 Sat by Pulse Oximetry 97 09/26/18 10:37 Temperature 98.0 F 09/26/18 10:37 Pulse Rate 74 09/26/18 11:36 Respiratory Rate 20 09/26/18 10:37 Blood Pressure 123/71 09/26/18 11:36 O2 Sat by Pulse Oximetry 98 09/26/18 11:36 Oxygen Delivery Oxygen Delivery Room Air Medical Decision Making - Lab Data Result diagrams: 09/26/18 11:21 03/29/19 11:21 Lab Results 09/26/18 09/26/18 09/26/18 Range/Units 11:21 11:21 11:21 WBC 6.6 (4.3-11.1) K/mcL RBC 5.02 (4.19-5.50) M/mcL Hgb 15.6 (12.9-16.9) g/dL Hct 46.0 (37.5-50.1) % MCV 91.6 (83.0-100.0) fL MCH 31.1 (28.0-33.3) pg MCHC 33.9 (31.6-35.5) g/dL RDW 12.5 (11.5-14.5) % Plt Count 242 (140-400) K/mcL MPV 9.0 L (9.4-12.4) fL Immature Gran % 0.3 (0-4) % Seg Neutrophils % 71.3 % Lymphocytes % 16.2 % Monocytes % 9.9 % Eosinophils % 2.0 % Basophils % 0.3 % Neutrophils # 4.7 (1.6-8.9) K/mcL Lymphocytes # 1.1 (0.6-4.6) K/mcL Monocytes # 0.7 (0.0-1.3) K/mcL Eosinophils # 0.1 (0.0-0.6) K/mcL Basophils # 0.0 (0.0-0.2) K/mcL PT 11.6 (9.4-12.1) Seconds INR 1.0 APTT 29.2 (26.0-36.0) Seconds Sodium 139 (136-145) mEq/L Potassium 4.4 (3.5-5.1) mEq/L Chloride 103 (98-107) mEq/L Carbon Dioxide 27 (23-29) mEq/L BUN 17 (8-23) mg/dL Creatinine 0.96 (0.70-1.30) mg/dL Est GFR ( Amer) > 60 (> 60) Est GFR (Non-Af Amer) > 60 (> 60) BUN/Creatinine Ratio 18 (6-26) Glucose 361 H (70-105) mg/dL Calculated Osmolality 304 H (280-300) Calcium 9.5 (8.6-10.3) mg/dL Troponin I < 0.03 (< 0.04) ng/mL
[2018-09-26] MEDS ORDERED: Ketorolac 30 MG/ML VIAL IVP PRN (17:01)
--- NOTE | 2018-09-26 17:27 | Internal Med History&Physical ---
Date of Encounter: 09/26/18 Time of Encounter: 17:00 Internal Medicine - H&P: HPI Chief complaint: Chest pain Admitted From: Home Plans for Post Hospital Care: Home History of present illness: Patient is a 67-year-old male with past medical history significant for CABG 2 (2016), NICOLE to prox and distal SVG-OM graft (03/2018), hypertension, hyperlipidemia and diabetes who presents to the ER on 09/26/2017 due to chest pain. Patient reports of mid back and sternal chest pain which she describes as sharp. Patient reports that back pain is constant but substernal pain is intermittent and lasts for hours with no provoking or relieving factors. Patient denies any associated symptoms of diaphoresis or nausea/vomiting. Patient was concerned so decided to come to the ER for evaluation. In the ER, patients first set of troponins were negative and chest x-ray showed no acute findings. Patient will be admitted to the observation unit for ACS rule out. Past Med Surg Social Fam HX - Past Medical History Medical history: coronary artery disease, diabetes, hyperlipidemia, hypertension, myocardial infarction Psychiatric history: anxiety, depression - Past Surgical History Surgical History: angioplasty/stent, other Additional surgical history: neck and back sx, double bypass - Social History Smoking Status: Never smoker Smokeless Tobacco Status: No Alcohol use: none Drug use: none - Family History Mother Adopted: No Family Member Ethnicity: Non- Living Status: Hx Family Cancer: Yes (pancreatic cancer) Hx Family Endocrine Disorder: Yes (diabetes) Father Adopted: No Family Member Ethnicity: Non- Living Status: Hx Family Cancer: Yes (Prostate cancer) Internal Medicine - H&P: Meds Calcium Carbonate/Vitamin D3 [Calcium 600-Vit D3 800 Tab] 1 tab PO DAILY 12/07/16 [History] Duloxetine HCl [Cymbalta] 60 mg PO DAILY 12/07/16 [History] Ibuprofen 800 mg PO TID PRN 12/07/16 [History] Lisinopril [Zestril] 5 mg PO DAILY 12/07/16 [History] metFORMIN [Glucophage] 1,000 mg PO BIDWM 12/07/16 [History] Aspirin 81 mg PO DAILY #60 tab.chew 12/16/16 [Rx] Atorvastatin [Lipitor] 40 mg PO HS #30 tablet 12/16/16 [Rx] Metoprolol [Lopressor] 12.5 mg PO BID #60 tablet 12/22/16 [Rx] Linagliptin [Tradjenta] 5 mg PO DAILY 07/26/17 [History] Albuterol Sulfate [Ventolin Hfa] 2 puff IH Q4H PRN 03/29/18 [History] Empagliflozin [Jardiance] 10 mg PO DAILY 03/29/18 [History] Clopidogrel [Plavix] 75 mg PO DAILY #30 tablet 03/30/18 [Rx] Allergy/AdvReac Type Severity Reaction Status Date / Time albuterol AdvReac See Verified 09/26/18 08:34 Comments All Systems PM: A 10-system review of systems was performed and is negative for pertinent findings except as documented above in the HPI. - Constitutional Vitals: Temp Pulse Resp BP Pulse Ox 99.3 F 65 16 136/73 94 09/26/18 16:41 09/26/18 16:41 09/26/18 16:41 09/26/18 16:41 09/26/18 16:41 General appearance: Present: A&O X 3, no acute distress Exam: As above - Eye Eye exam: Present: normal appearance - ENT ENT exam: Present: mucous membranes moist - Respiratory Respiratory exam: Present: CTAB. Absent: accessory muscle use, rales, rhonchi, wheezes - Cardiovascular Cardiovascular exam: Present: RRR, +S1, +S2. Absent: diastolic murmur, gallop, rubs, systolic murmur - GI/Abdominal GI/Abdominal exam: Present: normal bowel sounds, soft, no peritoneal signs. Absent: distended, tenderness - Extremities Exam Extremities exam: Absent: pedal edema - Neurological Exam Neurological exam: Present: oriented X3 - Psychiatric Psychiatric exam: Present: normal mood - Skin Skin exam: Present: normal color Internal Med - H&P Results - Labs CBC & Chem 7: 09/26/18 11:21 09/26/18 11:21 Labs: Short CBC 09/26/18 Range/Units 11:21 WBC 6.6 (4.3-11.1) K/mcL Hgb 15.6 (12.9-16.9) g/dL Hct 46.0 (37.5-50.1) % Plt Count 242 (140-400) K/mcL Neutrophils # 4.7 (1.6-8.9) K/mcL BMP 09/26/18 11:21 Sodium 139 Potassium 4.4 Chloride 103 Carbon Dioxide 27 BUN 17 Creatinine 0.96 Glucose 361 H Calcium 9.5 Cardiac Enzymes 09/26/18 Range/Units 11:21 Troponin I < 0.03 (< 0.04) ng/mL - Impressions ITS Impressions Chest X-Ray 09/26/18 11:08 IMPRESSION: No acute cardiopulmonary process. D/ / 09/26/2018 12:13:33 Guido Garber MD / Jessica James Interpreting Provider: Guido Garber MD - Assessment and Plan (1) Chest pain Current Visit: Yes Status: Acute Assessment and plan: Patient presents with sharp mid back and substernal chest pain with history of coronary arterial disease as below. First set of troponins are negative. Will trend serial troponins and monitor on telemetry Cardiology also consulted due to significant coronary arterial disease. Qualifiers: Chest pain type: unspecified Qualified Code(s): R07.9 - Chest pain, unspecified (2) CAD (coronary artery disease) Current Visit: No Status: Acute Assessment and plan: Past medical history significant for CABG 2 (2016), Patient also with recent left heart catheterization with a NICOLE to prox and distal SVG-OM graft (03/2018) Will continue DAPT (ASA and Plavix) uninterrupted x 1 year in addition to BB and Statin. Qualifiers: Associated angina: angina presence unspecified Qualified Code(s): I25.10 - Atherosclerotic heart disease of [place] coronary artery without angina pectoris (3) Diabetes Current Visit: No Status: Chronic Assessment and plan: Will hold oral diabetic medications and cover with slight scale insulin Qualifiers: Chronic kidney disease stage: unspecified stage Qualified Code(s): E08.22 - Diabetes mellitus due to underlying condition with diabetic chronic kidney disease (4) Hyperlipidemia Current Visit: No Status: Chronic Assessment and plan: Will continue home dose of statin Qualifiers: Hyperlipidemia type: unspecified Qualified Code(s): E78.5 - Hyperlipidemia, unspecified (5) Hypertension Current Visit: No Status: Chronic Assessment and plan: Will continue home dose of beta brando and JALEN inhibitor Qualifiers: Hypertension type: essential hypertension Qualified Code(s): I10 - Essential (primary) hypertension (6) DVT prophylaxis Current Visit: No Status: Inactive Assessment and plan: Subcutaneous heparin - Time Spent With Patient Total time spent is greater than 50% in coordination of care (as documented) at patient's floor/unit and/or counseling patient:
[2018-09-26] MEDS ORDERED: Naloxone 0.4 MG/ML INJ IVP PRN (17:34)
[2018-09-26] MEDS: *HR* Heparin 5,000 UNIT/ML VIAL SQ SCH (21:35)
[2018-09-26] MEDS ORDERED: Dextrose Gel 15 GM/37.5 ML TUBE PO PRN ×2 (21:49)
[2018-09-26] MEDS ORDERED: *HR* Dextrose 50 % in Water (Syg) 50 ML SYRINGE IVP PRN (21:49)
[2018-09-26] MEDS ORDERED: D5% in Water 1,000 ML IVC PRN (21:49)
[2018-09-26] MEDS ORDERED: Insulin LISPRO 300 UNITS/3 ML VIAL SQ SCH (22:00)
[2018-09-27] MEDS: Insulin LISPRO 300 UNITS/3 ML VIAL SQ SCH ×7 (00:56→17:23)
[2018-09-27] MEDS: *HR* Heparin 5,000 UNIT/ML VIAL SQ SCH ×2 (05:33→12:43)
[2018-09-27 06:41] LABS: Basophils # 0.1 K/mcL (0.0-0.2); Basophils % 1.1 %; Eosinophils # 0.2 K/mcL (0.0-0.6); Eosinophils % 4.4 %; Hematocrit 43.8 % (37.5-50.1); Hemoglobin 14.7 g/dL (12.9-16.9); Immature Granulocytes % 0.4 % (0-4); Lymphocytes # 1.8 K/mcL (0.6-4.6); Lymphocytes % 32.5 %; Mean Corpuscular HGB Conc 33.6 g/dL (31.6-35.5); Mean Corpuscular Hemoglobin 30.4 pg (28.0-33.3); Mean Corpuscular Volume 90.7 fL (83.0-100.0); Mean Platelet Volume 9.1 fL (9.4-12.4); Monocytes # 0.6 K/mcL (0.0-1.3); Monocytes % 10.2 %; Neutrophils # 2.8 K/mcL (1.6-8.9); Platelet Count 214 K/mcL (140-400); Red Blood Count 4.83 M/mcL (4.19-5.50); Red Cell Distribution Width 12.4 % (11.5-14.5); Segmented Neutrophils % 51.4 %
[2018-09-27 06:57] LABS: BUN/Creatinine Ratio 26 (6-26); Blood Urea Nitrogen 21 mg/dL (8-23); Calcium 9.2 mg/dL (8.6-10.3); Carbon Dioxide 29 mEq/L (23-29); Chloride 106 mEq/L (98-107); Glucose 174 mg/dL (70-105); Osmolality,Calculated 303 (280-300); Potassium 3.9 mEq/L (3.5-5.1); Sodium 143 mEq/L (136-145); eGFR For Non-African Americans > 60 (> 60)
--- NOTE | 2018-09-27 08:43 | Internal Med Progress Note ---
Hospitalist Progress Note - Encounter Date of Encounter: 09/27/18 - Subjective Interval History: Patient is a 67-year-old male with past medical history significant for CABG 2 (2016), NICOLE to prox and distal SVG-OM graft (03/2018) who presents with chest pain here for ACS rule out - Exam Vitals: Temp Pulse Resp BP Pulse Ox 98.2 F 80 16 158/89 95 09/27/18 07:25 09/27/18 07:25 09/27/18 07:25 09/27/18 07:25 09/27/18 07:25 - Assessment and Plan (1) Chest pain Current Visit: Yes Status: Acute Assessment and Plan: Patient with past medical history significant for CABG 2 (2016), NICOLE to prox and distal SVG-OM graft (03/2018) Cardiac biomarkers negative; limited echocardiogram pending Due to significant coronary arterial disease, cardiology consulted and appreciate recommendations (2) CAD (coronary artery disease) Current Visit: No Status: Acute Assessment and Plan: Past medical history significant for CABG 2 (2016), Patient also with recent left heart catheterization with a NICOLE to prox and distal SVG-OM graft (03/2018) Will continue DAPT (ASA and Plavix) uninterrupted x 1 year in addition to BB and Statin. (3) Diabetes Current Visit: No Status: Chronic Assessment and Plan: Will hold oral diabetic medications and cover with slight scale insulin (4) Hyperlipidemia Current Visit: No Status: Chronic Assessment and Plan: Will continue home dose of statin (5) Hypertension Current Visit: No Status: Chronic Assessment and Plan: Will continue home dose of beta brando and JALEN inhibitor DVT Prophylaxis: Heparin subcutaneous - Time Spent with Patient Total time spent is greater than 50% in coordination of care (as documented) at patient's floor/unit and/or counseling patient: Internal Medicine: Result - Labs CBC & Chem 7: 09/27/18 05:48 09/27/18 05:48 Labs: Short CBC 09/26/18 09/27/18 Range/Units 11:21 05:48 WBC 6.6 5.5 (4.3-11.1) K/mcL Hgb 15.6 14.7 (12.9-16.9) g/dL Hct 46.0 43.8 (37.5-50.1) % Plt Count 242 214 (140-400) K/mcL Neutrophils # 4.7 2.8 (1.6-8.9) K/mcL BMP 09/26/18 09/27/18 11:21 05:48 Sodium 139 143 Potassium 4.4 3.9 Chloride 103 106 Carbon Dioxide 27 29 BUN 17 21 Creatinine 0.96 0.81 Glucose 361 H 174 H Calcium 9.5 9.2 Cardiac Enzymes 09/26/18 09/26/18 09/26/18 Range/Units 11:21 17:45 23:53 Troponin I < 0.03 < 0.03 < 0.03 (< 0.04) ng/mL 09/27/18 Range/Units 05:48 Troponin I < 0.03 (< 0.04) ng/mL - ABG Interpretation ABG results: PT/INR, D-dimer PT 11.6 Seconds (9.4-12.1) 09/26/18 11:21 - Impressions Impressions Chest X-Ray 09/26/18 11:08 IMPRESSION: No acute cardiopulmonary process. D/ / 09/26/2018 12:13:33 Guido Garber MD / Jessica James Interpreting Provider: Guido Garber MD Consult Discharge Plan - Plan Referrals: Declan Vick DO [Primary Care Provider] - (1) Chest pain Qualifiers: Chest pain type: unspecified Qualified Code(s): R07.9 - Chest pain, unspe cified (2) CAD (coronary artery disease) Qualifiers: Associated angina: angina presence unspecified Qualified Code(s): I25.10 - Atherosclerotic heart disease of [place] coronary artery without angina pectoris (3) Diabetes Qualifiers: Chronic kidney disease stage: unspecified stage (4) Hyperlipidemia Qualifiers: Hyperlipidemia type: unspecified Qualified Code(s): E78.5 - Hyperlipidemia, unspecified (5) Hypertension Qualifiers: Hypertension type: essential hypertension Qualified Code(s): I10 - Essential (primary) hypertension
--- NOTE | 2018-09-27 08:59 | Cardiology Consult Note ---
<Comfort Gillis - Last Filed: 09/27/18 09:12> Date of Encounter: 09/27/18 Time of Encounter: 07:30 Assessment and Plan (1) Atypical chest pain Current Visit: Yes Status: Acute Per cardiology: -Reports atypical chest pain, different from previous angina. -ECG with no acute ischemic changes. -Troponins negative x4. -[facility] 03/2018 with 95% prox LAD, 80% mid LAD, 60% mid-distal circ, 99% OM1 (small vessel), 99% ramus ISR, 40% prox RCA, 30% mid RCA, 30% distal RCA, GARCIA to LAD patent, SVG to OM1 with 90-90% ostial and NICOLE placed also 80-90% distal SVG graft with NICOLE placed. -03/2018 TTE with LVEF 60%, mild MR, no wall motion abnormalities noted. -Will resume home medications, asa, plavix, statin, BB. Dual anti-platelet threrapy uninterrupted for at least one year, patient states understanding. -Recommend work up for non-cardiac causes of chest pain. -Anticipate sign off once seen and evaluated by . (2) CAD (coronary artery disease) Current Visit: No Status: Chronic Per cardiology: -Known CAD. -See atypical chest pain as above. Qualifiers: Coronary Disease-Associated Artery/Lesion type: bypass graft [place] vs. transplanted heart: [place] heart Associated angina: without angina Qualified Code(s): I25.810 - Atherosclerosis of coronary artery bypass graft(s) without angina pectoris Discussion w patient/family: The assessment and plan as outlined above was discussed with the patient who expressed understanding and agreement. All questions were answered. Thank you for involving us in the care of your patient. Please call with any questions. Discussed and reviewed with . History of Present Illness Consult date: 09/26/18 Requesting physician: Mumtaz Rich Consult reason: chest pain Chief complaint: chest pain History of present illness: Mr. Medina is a 67 year old male with a relevant past medical history of CAD s/p CABG and PCI, AR, OA, DM, asthma, HTN, HLD, GERD, depression, obesity, who presented to [facility] with complaints of chest pain that radiated into his back. Reports pain increases with position change. Reports pain relieved by ibuprofen. Denies exertional symptoms. Reports symptoms are completely different from previous angina. Denies shortness of breath. Denies fatigue. Past Med Surg Social Fam HX - Past Medical History Attestation: Yes The following information was validated with the patient. Source: patient, old records reviewed Medical history: coronary artery disease, diabetes, hyperlipidemia, hypertensi on, myocardial infarction Psychiatric history: anxiety, depression - Past Surgical History Surgical History: angioplasty/stent, other Additional surgical history: neck and back sx, double bypass - Social History Smoking Status: Never smoker Smokeless Tobacco Status: No Alcohol use: none Drug use: none - Family History Mother Adopted: No Family Member Ethnicity: Non- Living Status: Hx Family Cancer: Yes (pancreatic cancer) Hx Family Endocrine Disorder: Yes (diabetes) Father Adopted: No Family Member Ethnicity: Non- Living Status: Hx Family Cancer: Yes (Prostate cancer) Medications and Allergies Duloxetine HCl [Cymbalta] 60 mg PO DAILY 12/07/16 [History] Ibuprofen 800 mg PO TID PRN 12/07/16 [History] Lisinopril [Zestril] 5 mg PO DAILY 12/07/16 [History] metFORMIN [Glucophage] 1,000 mg PO BIDWM 12/07/16 [History] Aspirin 81 mg PO DAILY #60 tab.chew 12/16/16 [Rx] Atorvastatin [Lipitor] 40 mg PO HS #30 tablet 12/16/16 [Rx] Metoprolol [Lopressor] 12.5 mg PO BID #60 tablet 12/22/16 [Rx] Linagliptin [Tradjenta] 5 mg PO DAILY 07/26/17 [History] Albuterol Sulfate [Ventolin Hfa] 2 puff IH Q4H PRN 03/29/18 [History] Clopidogrel [Plavix] 75 mg PO DAILY #30 tablet 03/30/18 [Rx] Allergy/AdvReac Type Severity Reaction Status Date / Time albuterol AdvReac See Verified 09/26/18 08:34 Comments All Systems Review: The remainder of the systems were reviewed and are negative - Cardiovascular Cardiovascular: as per HPI, chest pain at rest Physical Examination Vital Signs, Last 4 Hours Temp Pulse Resp BP Pulse Ox 09/27/18 07:25 98.2 F 80 16 158/89 95 09/27/18 05:09 98.3 F 63 16 147/84 95 General: Conversant, No Apparent Distress HEENT: Atraumatic, Normocephaly, Mucus Membranes Moist Neck: No JVD, Normal carotid pulses Cardiac: Reg Rate and Rhythm, Normal S1 and S2, No Murmur Lungs: Normal Breath Sounds, No Wheeze, Rales, Rhonchi Neuro: Alert and responsive, No focal deficits noted Abdomen: Soft, Non-Tender Skin: No rashes noted on visualized skin Musculoskeletal: No Chest Wall Tenderness Extremities: No Clubbing, No Cyanosis, No Edema, Normal Pulses Results 09/27/18 05:48 09/27/18 05:48 Lab Results Impressions Chest X-Ray 09/26/18 11:08 IMPRESSION: No acute cardiopulmonary process. D/ / 09/26/2018 12:13:33 Guido Garber MD / Jessica James Interpreting Provider: Guido Garber MD Active Medications Dextrose/Water (Dextrose 50% (Syg)) 25 ml IVP AD PRN PRN Reason: Hypoglycemia Stop: 03/28/19 21:50 Glucagon (Glucagen) 1 mg IM ONCE PRN PRN Reason: Hypoglycemia Stop: 03/28/19 21:50 Glucose (Gluctose) 15 gm PO ONCE PRN PRN Reason: Hypoglycemia Stop: 03/28/19 21:50 Glucose (Gluctose) 30 gm PO ONCE PRN PRN Reason: Hypoglycemia Stop: 03/28/19 21:50 Heparin Sodium (Porcine) (Heparin) 5,000 unit SQ Q8HCO HUE Stop: 03/28/19 22:01 Last Admin: 09/27/18 05:33 Dose: 5,000 unit Dextrose (Dextrose 5%) 1,000 mls @ 100 mls/hr IVC .Q10H PRN PRN Reason: HYPOGLYCEMIA Stop: 03/28/19 21:50 Insulin Human Lispro (Humalog) 0 units SQ TIDAC [facility]; Protocol Stop: 03/29/19 07:31 Last Admin: 09/27/18 07:33 Dose: Not Given Insulin Human Lispro (Humalog) 0 units SQ HS [facility]; Protocol Stop: 03/28/19 22:01 Last Admin: 09/26/18 22:59 Dose: 2 units Insulin Human Lispro (Humalog) 0 units SQ Q6HR [facility]; Protocol Stop: 03/29/19 00:01 Last Admin: 09/27/18 05:37 Dose: Not Given Ketorolac Tromethamine (Toradol) 30 mg IVP Q6HR PRN PRN Reason: Mild Pain Stop: 10/01/18 17:02 Last Admin: 09/26/18 18:16 Dose: 30 mg Naloxone HCl (Narcan) 0.4 mg IVP Q2M PRN PRN Reason: SEE COMMENTS Stop: 03/28/19 17:35 Omeprazole (Prilosec) 20 mg PO DAILY@0630 [facility]; Protocol Stop: 03/30/19 06:31 Laboratory Tests 09/26/18 09/26/18 09/26/18 11:21 17:45 23:53 Hgb Creatinine Troponin I < 0.03 < 0.03 < 0.03 09/27/18 09/27/18 09/27/18 05:48 05:48 05:48 Hgb 14.7 Creatinine 0.81 Troponin I < 0.03 - Imaging and Cardiology Chest Xray: report reviewed Echo: report reviewed Cardiac cath: report reviewed - EKG Interpretation EKG results cardiology: personally reviewed (ECG with SR, HR 100. Non-specific T wave abnormalities noted, similar to previous.), other (Telemetry reviewed with average HR previous 12 hours noted to be 73, SR. PVCs, PACs noted.) Consult Discharge Plan - Plan Referrals: Declan Vick DO [Primary Care Provider] - <Debby Dodd - Last Filed: 09/27/18 09:29> Date of Encounter: 09/27/18 - Attending Attestation I independently examined this patient and my medical decision-making was reviewed with the PADDER. I agree with the documented findings, disposition and treatment plan as described. Mr. Medina presents with atypical chest pain described as being different than his previous angina. Cardiac workup has been negative. Troponins negative x4, no new or acute ECG changes. We have resumed patient's home cardiac meds. Will add PPI to his regimen. No further cardiac testing warranted. Will sign off. Has follow up [facility] in [place] 10/03/2018 at 10:15AM with Rosas Walker CNP. Assessment and Plan Discussion w patient/family: The assessment and plan as outlined above was discussed with the patient and/or family members who expressed understanding and agreement. All questions were answered. Thank you for involving us in the care of your patient. Please call with any questions. History of Present Illness History of present illness: Mr. Medina is a 67 year old male All Systems Review: The remainder of the systems were reviewed and are negative Physical Examination Vital Signs, Last 4 Hours Temp Pulse Resp BP Pulse Ox 09/27/18 07:25 98.2 F 80 16 158/89 95 Results 09/27/18 05:48 09/27/18 05:48 Lab Results 09/26/18 09/26/18 09/26/18 11:21 11:21 11:21 WBC 6.6 Hgb 15.6 Hct 46.0 Plt Count 242 INR 1.0 APTT 29.2 Sodium 139 Potassium 4.4 Chloride 103 Carbon Dioxide 27 BUN 17 Creatinine 0.96 Glucose 361 H Calcium 9.5 Troponin I < 0.03 09/26/18 09/26/18 09/27/18 17:45 23:53 05:48 WBC 5.5 Hgb 14.7 Hct 43.8 Plt Count 214 INR APTT Sodium Potassium Chloride Carbon Dioxide BUN Creatinine Glucose Calcium Troponin I < 0.03 < 0.03 09/27/18 09/27/18 05:48 05:48 WBC Hgb Hct Plt Count INR APTT Sodium 143 Potassium 3.9 Chloride 106 Carbon Dioxide 29 BUN 21 Creatinine 0.81 Glucose 174 H Calcium 9.2 Troponin I < 0.03
[2018-09-27] MEDS ORDERED: Aspirin Enteric Coated 81 MG Tablet PO SCH (09:15)
[2018-09-27 11:31] VITALS: BP 146/78
[2018-09-27] MEDS ORDERED: Isovue-370 500 ML BOTTLE IVP ONE ×2 (13:49→14:27)
--- NOTE | 2018-09-27 17:05 | Discharge Summary ---
Orders not resulted at time of discharge: Pending orders 09/26/18 11:08 ECG 12 lead ECG [ECG] Stat 09/27/18 05:48 Hgb A1C Routine Date of Encounter: 09/27/18 Time of Encounter: 11:00 - Discharge Diagnosis (1) Chest pain Priority: Primary Status: Acute Qualifiers: Chest pain type: unspecified Qualified Code(s): R07.9 - Chest pain, unspecified (2) CAD (coronary artery disease) Priority: Secondary Status: Chronic Qualifiers: Coronary Disease-Associated Artery/Lesion type: bypass graft [place] vs. transplanted heart: [place] heart Associated angina: without angina Qualified Code(s): I25.810 - Atherosclerosis of coronary artery bypass graft(s) without angina pectoris (3) Diabetes Priority: Secondary Status: Chronic Qualifiers: Chronic kidney disease stage: unspecified stage Qualified Code(s): E08.22 - Diabetes mellitus due to underlying condition with diabetic chronic kidney disease; Z79.4 - ocean transportation intermediary (current) use of insulin (4) Hyperlipidemia Priority: Secondary Status: Chronic Qualifiers: Hyperlipidemia type: unspecified Qualified Code(s): E78.5 - Hyperlipidemia, unspecified (5) Hypertension Priority: Secondary Status: Chronic Qualifiers: Hypertension type: essential hypertension Qualified Code(s): I10 - Essential (primary) hypertension Hospital course: Patient is a 67-year-old male with past medical history significant for CABG 2 (2016), NICOLE to prox and distal SVG-OM graft (03/2018), hypertension, hyperlipidemia and diabetes who presents to the ER on 09/26/2017 due to chest pain. Patient reports of mid back and sternal chest pain which she describes as sharp. Patient reports that back pain is constant but substernal pain is intermittent and lasts for hours with no provoking or relieving factors. Patient denies any associated symptoms of diaphoresis or nausea/vomiting. Patient was concerned so decided to come to the ER for evaluation. In the ER, patients first set of troponins were negative and chest x-ray showed no acute findings. Patient will be admitted to the observation unit for ACS rule out. During patients hospital cardiology was consulted with recommendations for continued medical management. Patient will follow-up with cardiology as an outpatient. - Time Spent with Patient Total time spent providing and/or coordinating discharge services: Time spent: Less than 30 minutes - Discharge Medications Prescriptions: Continue metFORMIN [Glucophage] 1,000 mg PO BIDWM Lisinopril [Zestril] 5 mg PO DAILY Ibuprofen 800 mg PO TID PRN PRN Reason: Pain Duloxetine HCl [Cymbalta] 60 mg PO DAILY Aspirin 81 mg PO DAILY #60 tab.chew Atorvastatin [Lipitor] 40 mg PO HS #30 tablet Metoprolol [Lopressor] 12.5 mg PO BID #60 tablet Albuterol Sulfate [Ventolin Hfa] 2 puff IH Q4H PRN PRN Reason: Dyspnea Clopidogrel [Plavix] 75 mg PO DAILY #30 tablet Empagliflozin [Jardiance] 25 mg PO DAILY Glimepiride [Amaryl] 2 mg PO DAILY Linagliptin [Tradjenta] 5 mg PO DAILY Home Medications: Duloxetine HCl [Cymbalta] 60 mg PO DAILY 12/07/16 [History] Ibuprofen 800 mg PO TID PRN 12/07/16 [History] Lisinopril [Zestril] 5 mg PO DAILY 12/07/16 [History] metFORMIN [Glucophage] 1,000 mg PO BIDWM 12/07/16 [History] Aspirin 81 mg PO DAILY #60 tab.chew 12/16/16 [Rx] Atorvastatin [Lipitor] 40 mg PO HS #30 tablet 12/16/16 [Rx] Metoprolol [Lopressor] 12.5 mg PO BID #60 tablet 12/22/16 [Rx] Albuterol Sulfate [Ventolin Hfa] 2 puff IH Q4H PRN 03/29/18 [History] Clopidogrel [Plavix] 75 mg PO DAILY #30 tablet 03/30/18 [Rx] Empagliflozin [Jardiance] 25 mg PO DAILY 09/27/18 [History] Glimepiride [Amaryl] 2 mg PO DAILY 09/27/18 [History] Linagliptin [Tradjenta] 5 mg PO DAILY 09/27/18 [History] Allergies/Adverse Reactions: Allergy/AdvReac Type Severity Reaction Status Date / Time albuterol AdvReac See Verified 09/27/18 10:00 Comments Date of admission: 09/26/18 14:03 Primary care physician: Declan Vick Consults: 09/26/18 16:27 Consult to Cardiology [CONS] Routine Comment: Consulting Provider: [facility] [place] Reason for Consult: cp with h/o CABG x 2 and recent PCI Call Completed: Yes - Constitutional Vitals: Temp Pulse Resp BP Pulse Ox 98.1 F 66 14 146/78 96 09/27/18 11:24 09/27/18 11:24 09/27/18 11:24 09/27/18 11:24 09/27/18 11:24 General appearance: Present: A&O X 3, no acute distress Exam: Gen.: Nonacute distress, alert and oriented 3 Skin: Normal color - Patient Status Disposition: Home, Self-Care Condition: Good - Discharge Instructions Instructions: Chest Pain (DC), Diabetes Mellitus Type 2 in Adults (DC), Chronic Hypertension (DC) Follow Up With: Declan Vick DO [Primary Care Provider] - (Unable to make appointment due to office being closed for weekend. Please call and schedule an appointment within a week of your discharge date.)
[2018-09-28 07:28] LABS: Estimated Average Glucose 212 mg/dl
--- NOTE | 2018-10-01 07:50 | Electrocardiograph Report ---
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
== END 2018-09-27 17:51 | disposition home or self-care (01) ==
LOC: EMEROOARM 10:32 → 3BNU 10:32 → SUATTDRO 14:03 → 3BNU 15:45
PROVIDERS: ADMIT Internal Medicine; ATTEND Hospitalist

== ENCOUNTER 2019-07-18 14:31 | Observation (INO) ==
[2019-07-18] MEDS: 0.9 % Sodium Chloride 1,000 ML IVC SCH (18:02)
[2019-07-18] MEDS: Pantoprazole 40 MG in 0.9 % Sodium Chloride Mini Bag 100 ML IVC SCH ×2 (18:03→23:24)
[2019-07-18] MEDS ORDERED: Dextrose Gel 15 GM/37.5 ML TUBE PO PRN ×2 (18:14)
[2019-07-18] MEDS ORDERED: D5% in Water 1,000 ML IVC PRN (18:14)
[2019-07-18] MEDS ORDERED: *HR* Dextrose 50 % in Water (Syg) 50 ML SYRINGE IVP PRN (18:14)
[2019-07-18 18:49] LABS: Basophils % 0.5 %; Eosinophils # 0.1 K/mcL (0.0-0.6); Eosinophils % 1.1 %; Hematocrit 32.2 % (37.5-50.1); Hemoglobin 10.9 g/dL (12.9-16.9); Lymphocytes # 1.9 K/mcL (0.6-4.6); Lymphocytes % 22.2 %; Mean Corpuscular HGB Conc 33.9 g/dL (31.6-35.5); Mean Corpuscular Hemoglobin 30.7 pg (28.0-33.3); Mean Corpuscular Volume 90.7 fL (83.0-100.0); Mean Platelet Volume 9.7 fL (9.4-12.4); Monocytes # 0.7 K/mcL (0.0-1.3); Monocytes % 7.9 %; Platelet Count 258 K/mcL (140-400); Red Blood Count 3.55 M/mcL (4.19-5.50); Red Cell Distribution Width 12.6 % (11.5-14.5); Segmented Neutrophils % 67.3 %; White Blood Count 8.4 K/mcL (4.3-11.1)
[2019-07-18 18:56] LABS: INR 1.1
[2019-07-18 18:59] LABS: Activated Partial Thrombo Time 27.9 Seconds (26.0-36.0)
[2019-07-18 19:12] LABS: BUN/Creatinine Ratio 72 (6-26); Blood Urea Nitrogen 56 mg/dL (8-23); Calcium 8.4 mg/dL (8.6-10.3); Carbon Dioxide 20 mEq/L (23-29); Chloride 108 mEq/L (98-107); Glucose 195 mg/dL (70-105); Neutrophils # 5.7 K/mcL (1.6-8.9); Osmolality,Calculated 311 (280-300); Potassium 4.5 mEq/L (3.5-5.1); Sodium 140 mEq/L (136-145); eGFR For African Americans > 60 (> 60); eGFR For Non-African Americans > 60 (> 60)
[2019-07-18] MEDS: Sucralfate 1 GM TABLET PO SCH (20:57)
[2019-07-18] MEDS: Insulin LISPRO 300 UNITS/3 ML VIAL SQ SCH (20:58)
[2019-07-19 01:23] LABS: Hemoglobin 9.3 g/dL (12.9-16.9)
[2019-07-19] MEDS: 0.9 % Sodium Chloride 1,000 ML IVC SCH (03:42)
[2019-07-19] MEDS: Pantoprazole 40 MG in 0.9 % Sodium Chloride Mini Bag 100 ML IVC SCH ×3 (03:43→15:10)
[2019-07-19 07:08] LABS: Hematocrit 28.8 % (37.5-50.1); Hemoglobin 9.9 g/dL (12.9-16.9); Mean Corpuscular HGB Conc 34.4 g/dL (31.6-35.5); Mean Corpuscular Hemoglobin 30.9 pg (28.0-33.3); Platelet Count 247 K/mcL (140-400); Red Cell Distribution Width 12.9 % (11.5-14.5); White Blood Count 8.5 K/mcL (4.3-11.1)
[2019-07-19 07:30] LABS: BUN/Creatinine Ratio 52 (6-26); Blood Urea Nitrogen 39 mg/dL (8-23); Calcium 8.1 mg/dL (8.6-10.3); Carbon Dioxide 21 mEq/L (23-29); Chloride 111 mEq/L (98-107); Glucose 137 mg/dL (70-105); Osmolality,Calculated 306 (280-300); Potassium 4.2 mEq/L (3.5-5.1); Sodium 142 mEq/L (136-145); eGFR For African Americans > 60 (> 60); eGFR For Non-African Americans > 60 (> 60)
[2019-07-19] MEDS: Insulin LISPRO 300 UNITS/3 ML VIAL SQ SCH ×4 (07:49→17:13)
[2019-07-19] MEDS: Sucralfate 1 GM TABLET PO SCH ×3 (09:01→15:48)
[2019-07-19] MEDS ORDERED: Propofol 500 MG/50 ML INFUS..BTL ONE (10:10)
[2019-07-19] MEDS ORDERED: Lidocaine -MPF 2% 2 ML VIAL ONE (10:10)
[2019-07-19] MEDS ORDERED: 0.9 % Sodium Chloride 500 ML IVC ONE (14:29)
[2019-07-19 15:03] LABS: Hematocrit 25.7 % (37.5-50.1); Hemoglobin 8.9 g/dL (12.9-16.9)
[2019-07-19] MEDS ORDERED: 0.9 % Sodium Chloride 1,000 ML IVC SCH (15:45)
[2019-07-19] MEDS ORDERED: Artificial Tears SOLN 15 ML BOTTLE BOTH EYES ONE (17:53)
[2019-07-19] MEDS ORDERED: Pantoprazole 40 MG VIAL IVP SCH (18:00)
[2019-07-19 22:30] LABS: Hematocrit 23.6 % (37.5-50.1); Hemoglobin 8.4 g/dL (12.9-16.9)
[2019-07-20] MEDS: Sucralfate 1 GM TABLET PO SCH ×3 (00:05→11:41)
[2019-07-20] MEDS: Artificial Tears SOLN 15 ML BOTTLE BOTH EYES SCH ×2 (00:06→08:19)
[2019-07-20] MEDS: Insulin LISPRO 300 UNITS/3 ML VIAL SQ SCH ×3 (00:06→11:41)
[2019-07-20 05:54] LABS: Hematocrit 23.1 % (37.5-50.1); Mean Corpuscular HGB Conc 34.6 g/dL (31.6-35.5); Mean Corpuscular Hemoglobin 30.8 pg (28.0-33.3); Mean Corpuscular Volume 88.8 fL (83.0-100.0); Mean Platelet Volume 9.1 fL (9.4-12.4); Platelet Count 212 K/mcL (140-400); Red Cell Distribution Width 12.8 % (11.5-14.5); White Blood Count 6.7 K/mcL (4.3-11.1)
[2019-07-20 06:42] LABS: BUN/Creatinine Ratio 19 (6-26); Blood Urea Nitrogen 20 mg/dL (8-23); Calcium 8.2 mg/dL (8.6-10.3); Carbon Dioxide 26 mEq/L (23-29); Chloride 105 mEq/L (98-107); Glucose 292 mg/dL (70-105); Osmolality,Calculated 301 (280-300); Potassium 3.9 mEq/L (3.5-5.1); Sodium 139 mEq/L (136-145); eGFR For African Americans > 60 (> 60); eGFR For Non-African Americans > 60 (> 60)
[2019-07-20] MEDS: 0.9 % Sodium Chloride 1,000 ML IVC SCH (08:04)
[2019-07-20] MEDS ORDERED: Aspirin 81 MG TAB.CHEW PO SCH (09:00)
[2019-07-20 09:29] LABS: Hematocrit 28.5 % (37.5-50.1)
[2019-07-20 09:30] LABS: Hemoglobin 9.7 g/dL (12.9-16.9)
[2019-07-20 16:36] VITALS: BP 139/74
[2019-07-20 16:37] LABS: Hematocrit 25.7 % (37.5-50.1); Hemoglobin 8.7 g/dL (12.9-16.9); Mean Corpuscular HGB Conc 33.9 g/dL (31.6-35.5); Mean Corpuscular Hemoglobin 31.4 pg (28.0-33.3); Mean Corpuscular Volume 92.8 fL (83.0-100.0); Mean Platelet Volume 8.9 fL (9.4-12.4); Platelet Count 223 K/mcL (140-400); Red Blood Count 2.77 M/mcL (4.19-5.50); Red Cell Distribution Width 12.9 % (11.5-14.5); White Blood Count 8.4 K/mcL (4.3-11.1)
[2019-07-20 17:05] LABS: BUN/Creatinine Ratio 19 (6-26); Blood Urea Nitrogen 17 mg/dL (8-23); Calcium 8.6 mg/dL (8.6-10.3); Carbon Dioxide 24 mEq/L (23-29); Chloride 104 mEq/L (98-107); Glucose 284 mg/dL (70-105); Osmolality,Calculated 292 (280-300); Potassium 4.1 mEq/L (3.5-5.1); Sodium 135 mEq/L (136-145); Troponin I 0.03 ng/mL (< 0.04); eGFR For African Americans > 60 (> 60); eGFR For Non-African Americans > 60 (> 60)
[2019-07-20 17:16] LABS: Bilirubin,Urine Negative (Negative); Blood,Urine Negative (Negative); Clarity,Urine Clear (Clear); Color,Urine Yellow (Yellow); Glucose,Urine (UA) >=1000 mg/dL (Normal); Ketones,Urine Negative (Negative); Leukocyte Esterase,Urine Negative (Negative); Nitrite,Urine Negative (Negative); Protein,Urine Negative (Neg-Trace); Specific Gravity,Urine > 1.030 (1.010-1.025); Urobilinogen,Urine Normal (Normal)
== END 2019-07-20 18:32 | disposition home or self-care (01) ==
LOC: 3ANU → SUATTDRO 16:13
PROVIDERS: ADMIT Family Medicine; ATTEND Family Medicine
PROC: ENDOEBX (2019-07-19 10:00)

== ENCOUNTER 2019-08-10 22:20 | Observation (INO) ==
[2019-08-10] MEDS: Aspirin 81 MG TAB.CHEW PO STA ×2 (23:00→23:15)
[2019-08-10] MEDS ORDERED: *HR* Heparin 5,000 UNIT/ML VIAL IVP ONE (23:01)
[2019-08-10] MEDS ORDERED: *HR* Heparin 5,000 UNIT/ML VIAL IVP PRN ×2 (23:01)
[2019-08-10] MEDS ORDERED: Aspirin 81 MG TAB.CHEW PO STA (23:08)
[2019-08-10 23:11] LABS: Basophils % 0.5 %; Eosinophils # 0.2 K/mcL (0.0-0.6); Eosinophils % 2.5 %; Hematocrit 28.6 % (37.5-50.1); Hemoglobin 9.2 g/dL (12.9-16.9); Immature Granulocytes % 0.4 % (0-4); Lymphocytes # 1.7 K/mcL (0.6-4.6); Lymphocytes % 21.5 %; Mean Corpuscular HGB Conc 32.2 g/dL (31.6-35.5); Mean Corpuscular Hemoglobin 28.5 pg (28.0-33.3); Mean Corpuscular Volume 88.5 fL (83.0-100.0); Mean Platelet Volume 8.3 fL (9.4-12.4); Monocytes # 0.8 K/mcL (0.0-1.3); Monocytes % 9.7 %; Platelet Count 342 K/mcL (140-400); Red Blood Count 3.23 M/mcL (4.19-5.50); Red Cell Distribution Width 14.3 % (11.5-14.5); Segmented Neutrophils % 65.4 %; White Blood Count 7.7 K/mcL (4.3-11.1)
[2019-08-10] MEDS ORDERED: Heparin 25,000 UNIT/250 ML D5W 25,000 UNIT/250 ML IV.SOLN IVC SCH (23:15)
[2019-08-10] MEDS: Nitroglycerin 0.4 MG TAB.SUBL SL PRN ×2 (23:22→23:32)
[2019-08-10 23:46] LABS: BUN/Creatinine Ratio 17 (6-26); Blood Urea Nitrogen 15 mg/dL (8-23); Calcium 8.9 mg/dL (8.6-10.3); Carbon Dioxide 25 mEq/L (23-29); Chloride 101 mEq/L (98-107); Glucose 263 mg/dL (70-105); INR 1.1; Osmolality,Calculated 290 (280-300); Potassium 4.1 mEq/L (3.5-5.1); Sodium 135 mEq/L (136-145); Troponin I < 0.03 ng/mL (< 0.04); eGFR For African Americans > 60 (> 60); eGFR For Non-African Americans > 60 (> 60)
[2019-08-10] MEDS ORDERED: Pantoprazole 40 MG VIAL IVP ONE (23:57)
[2019-08-11] MEDS ORDERED: Ondansetron 4 MG/2 ML VIAL IVP PRN (01:52)
[2019-08-11] MEDS ORDERED: Acetaminophen 325 MG TABLET PO PRN (01:52)
[2019-08-11] MEDS ORDERED: Naloxone 0.4 MG/ML INJ IVP PRN (01:52)
[2019-08-11] MEDS ORDERED: *HR* Dextrose 50 % in Water (Syg) 50 ML SYRINGE IVP PRN (01:59)
[2019-08-11] MEDS ORDERED: Dextrose Gel 15 GM/37.5 ML TUBE PO PRN ×2 (01:59)
[2019-08-11] MEDS ORDERED: D5% in Water 1,000 ML IVC PRN (01:59)
[2019-08-11 06:33] LABS: Basophils % 0.5 %; Eosinophils # 0.2 K/mcL (0.0-0.6); Eosinophils % 2.9 %; Hematocrit 28.1 % (37.5-50.1); Hemoglobin 8.8 g/dL (12.9-16.9); Immature Granulocytes % 0.3 % (0-4); Lymphocytes # 1.5 K/mcL (0.6-4.6); Lymphocytes % 25.9 %; Mean Corpuscular HGB Conc 31.3 g/dL (31.6-35.5); Mean Corpuscular Hemoglobin 28.5 pg (28.0-33.3); Mean Corpuscular Volume 90.9 fL (83.0-100.0); Mean Platelet Volume 8.7 fL (9.4-12.4); Monocytes # 0.5 K/mcL (0.0-1.3); Monocytes % 8.6 %; Neutrophils # 3.6 K/mcL (1.6-8.9); Platelet Count 314 K/mcL (140-400); Red Blood Count 3.09 M/mcL (4.19-5.50); Red Cell Distribution Width 14.3 % (11.5-14.5); Segmented Neutrophils % 61.8 %; White Blood Count 5.8 K/mcL (4.3-11.1)
[2019-08-11 06:46] LABS: BUN/Creatinine Ratio 20 (6-26); Blood Urea Nitrogen 16 mg/dL (8-23); Calcium 8.6 mg/dL (8.6-10.3); Carbon Dioxide 26 mEq/L (23-29); Chloride 101 mEq/L (98-107); Chol/HDL Ratio 6.4 (0-4.9); Cholesterol 140 mg/dL (< 200); Glucose 215 mg/dL (70-105); HDL Cholesterol 22 mg/dL (40-59); LDL Cholesterol,Calculated 81 mg/dL (0-99); Magnesium 1.9 mg/dL (1.6-2.6); Osmolality,Calculated 292 (280-300); Phosphorous 3.3 mg/dL (2.7-4.5); Potassium 3.5 mEq/L (3.5-5.1); Sodium 137 mEq/L (136-145); Triglycerides 186 mg/dL (< 150); eGFR For African Americans > 60 (> 60); eGFR For Non-African Americans > 60 (> 60)
[2019-08-11 06:55] LABS: % Iron Saturation 8 % (20-55); Iron 27 mcg/dL (65-175); Transferrin 242 mg/dL (203-362)
[2019-08-11 07:06] LABS: Ferritin 18 ng/mL (20-250)
[2019-08-11 07:09] LABS: Folate 11.2 ng/mL (3.0-16.0)
[2019-08-11] MEDS ORDERED: Aspirin Enteric Coated 81 MG Tablet PO SCH (09:00)
[2019-08-11 09:22] LABS: Estimated Average Glucose 163 mg/dl
[2019-08-11] MEDS: Sennosides/Docusate Sodium TABLET PO SCH ×2 (09:59→20:42)
[2019-08-11] MEDS: Sucralfate 1 GM TABLET PO SCH ×4 (09:59→22:27)
[2019-08-11] MEDS: Insulin LISPRO 300 UNITS/3 ML VIAL SQ SCH ×3 (09:59→17:08)
[2019-08-11] MEDS: Insulin DETEMIR 100 UNIT/ML X5UNITS SQ SCH (09:59)
[2019-08-11] MEDS ORDERED: Perflutren Lipid Microsphere 1.3 ML in 0.9 % Sodium Chloride 8.7 ML IVP ONE (16:05)
[2019-08-11] MEDS ORDERED: SODIUM CHLORIDE/NAHCO3/KCL/PEG 4,000 ML SOLN.RECON PO ONE (17:00)
[2019-08-12 05:42] LABS: Hematocrit 28.7 % (37.5-50.1); Hemoglobin 9.2 g/dL (12.9-16.9); Mean Corpuscular HGB Conc 32.1 g/dL (31.6-35.5); Mean Corpuscular Volume 87.2 fL (83.0-100.0); Mean Platelet Volume 8.7 fL (9.4-12.4); Platelet Count 359 K/mcL (140-400); Red Blood Count 3.29 M/mcL (4.19-5.50); Red Cell Distribution Width 14.3 % (11.5-14.5); White Blood Count 7.1 K/mcL (4.3-11.1)
[2019-08-12] MEDS ORDERED: Milk and Molasses Enema 200 ML RC ONE (05:51)
[2019-08-12 06:04] LABS: BUN/Creatinine Ratio 23 (6-26); Blood Urea Nitrogen 18 mg/dL (8-23); Calcium 8.9 mg/dL (8.6-10.3); Carbon Dioxide 28 mEq/L (23-29); Chloride 99 mEq/L (98-107); Glucose 177 mg/dL (70-105); Osmolality,Calculated 288 (280-300); Sodium 136 mEq/L (136-145); eGFR For African Americans > 60 (> 60); eGFR For Non-African Americans > 60 (> 60)
[2019-08-12] MEDS: Sucralfate 1 GM TABLET PO SCH ×4 (08:03→21:56)
[2019-08-12] MEDS: Insulin LISPRO 300 UNITS/3 ML VIAL SQ SCH ×3 (08:03→16:54)
[2019-08-12] MEDS: Sennosides/Docusate Sodium TABLET PO SCH ×2 (08:04→21:56)
[2019-08-12] MEDS: Insulin DETEMIR 100 UNIT/ML X5UNITS SQ SCH (08:55)
[2019-08-13 03:04] LABS: Hematocrit 31.3 % (37.5-50.1); Hemoglobin 10.2 g/dL (12.9-16.9); Mean Corpuscular HGB Conc 32.6 g/dL (31.6-35.5); Mean Corpuscular Hemoglobin 27.9 pg (28.0-33.3); Mean Corpuscular Volume 85.5 fL (83.0-100.0); Mean Platelet Volume 8.4 fL (9.4-12.4); Platelet Count 399 K/mcL (140-400); Red Blood Count 3.66 M/mcL (4.19-5.50); Red Cell Distribution Width 14.1 % (11.5-14.5); White Blood Count 7.7 K/mcL (4.3-11.1)
[2019-08-13 03:21] LABS: BUN/Creatinine Ratio 16 (6-26); Blood Urea Nitrogen 13 mg/dL (8-23); Calcium 9.3 mg/dL (8.6-10.3); Carbon Dioxide 26 mEq/L (23-29); Chloride 99 mEq/L (98-107); Glucose 180 mg/dL (70-105); Osmolality,Calculated 283 (280-300); Potassium 3.8 mEq/L (3.5-5.1); Sodium 134 mEq/L (136-145); eGFR For African Americans > 60 (> 60); eGFR For Non-African Americans > 60 (> 60)
[2019-08-13] MEDS: Insulin LISPRO 300 UNITS/3 ML VIAL SQ SCH ×3 (08:36→17:41)
[2019-08-13] MEDS: Sennosides/Docusate Sodium TABLET PO SCH ×2 (08:39→21:16)
[2019-08-13] MEDS: Sucralfate 1 GM TABLET PO SCH ×4 (08:39→21:16)
[2019-08-13] MEDS: Insulin DETEMIR 100 UNIT/ML X5UNITS SQ SCH (08:40)
[2019-08-13] MEDS ORDERED: Lidocaine -MPF 2% 2 ML VIAL ONE (12:19)
[2019-08-13] MEDS ORDERED: Propofol 500 MG/50 ML INFUS..BTL ONE (12:19)
[2019-08-13] MEDS ORDERED: *HR* PHENYLEPHRINE 1,000 MCG/10 ML SYRINGE IVP ONE (13:07)
[2019-08-13 14:04] LABS: Basophils # 0.1 K/mcL (0.0-0.2); Basophils % 0.8 %; Eosinophils # 0.1 K/mcL (0.0-0.6); Eosinophils % 1.9 %; Hematocrit 30.3 % (37.5-50.1); Hemoglobin 9.6 g/dL (12.9-16.9); Immature Granulocytes % 0.4 % (0-4); Lymphocytes # 1.3 K/mcL (0.6-4.6); Lymphocytes % 17.9 %; Mean Corpuscular HGB Conc 31.7 g/dL (31.6-35.5); Mean Corpuscular Hemoglobin 27.7 pg (28.0-33.3); Mean Corpuscular Volume 87.3 fL (83.0-100.0); Mean Platelet Volume 8.5 fL (9.4-12.4); Monocytes # 0.6 K/mcL (0.0-1.3); Monocytes % 8.5 %; Neutrophils # 5.1 K/mcL (1.6-8.9); Platelet Count 393 K/mcL (140-400); Red Blood Count 3.47 M/mcL (4.19-5.50); Red Cell Distribution Width 14.2 % (11.5-14.5); Segmented Neutrophils % 70.5 %; White Blood Count 7.3 K/mcL (4.3-11.1)
[2019-08-14 01:29] LABS: Hematocrit 31.2 % (37.5-50.1); Hemoglobin 9.6 g/dL (12.9-16.9); Mean Corpuscular HGB Conc 30.8 g/dL (31.6-35.5); Mean Corpuscular Hemoglobin 27.9 pg (28.0-33.3); Mean Corpuscular Volume 90.7 fL (83.0-100.0); Mean Platelet Volume 8.8 fL (9.4-12.4); Platelet Count 343 K/mcL (140-400); Red Blood Count 3.44 M/mcL (4.19-5.50); Red Cell Distribution Width 14.2 % (11.5-14.5); White Blood Count 7.5 K/mcL (4.3-11.1)
[2019-08-14 01:49] LABS: BUN/Creatinine Ratio 19 (6-26); Blood Urea Nitrogen 16 mg/dL (8-23); Calcium 8.9 mg/dL (8.6-10.3); Carbon Dioxide 26 mEq/L (23-29); Chloride 101 mEq/L (98-107); Glucose 203 mg/dL (70-105); Osmolality,Calculated 289 (280-300); Potassium 3.9 mEq/L (3.5-5.1); Sodium 136 mEq/L (136-145); eGFR For African Americans > 60 (> 60); eGFR For Non-African Americans > 60 (> 60)
[2019-08-14] MEDS: Insulin LISPRO 300 UNITS/3 ML VIAL SQ SCH ×3 (08:00→17:11)
[2019-08-14] MEDS: Sucralfate 1 GM TABLET PO SCH ×4 (08:37→21:07)
[2019-08-14] MEDS: Isosorbide MONOnitrate (24 HR) 30 MG TAB.ER.24H PO SCH (08:37)
[2019-08-14] MEDS: Sennosides/Docusate Sodium TABLET PO SCH ×2 (08:37→21:06)
[2019-08-14] MEDS: Insulin DETEMIR 100 UNIT/ML X5UNITS SQ SCH (11:20)
[2019-08-14] MEDS ORDERED: 0.9 % Sodium Chloride 250 ML IVC ONE (12:12)
[2019-08-14] MEDS ORDERED: 0.9 % Sodium Chloride 500 ML IVC ONE (14:31)
[2019-08-15] MEDS: Sucralfate 1 GM TABLET PO SCH (06:12)
[2019-08-15 08:00] VITALS: BP 145/74
[2019-08-15] MEDS: Isosorbide MONOnitrate (24 HR) 30 MG TAB.ER.24H PO SCH (08:27)
[2019-08-15] MEDS: Sennosides/Docusate Sodium TABLET PO SCH (08:27)
[2019-08-15] MEDS: Insulin DETEMIR 100 UNIT/ML X5UNITS SQ SCH (08:29)
[2019-08-15] MEDS: Insulin LISPRO 300 UNITS/3 ML VIAL SQ SCH (08:30)
== END 2019-08-15 10:45 | disposition home or self-care (01) ==
LOC: CDU 22:20 → EMEROOARM 22:20 → SUATTDRO 08-11 01:09 → CDU 08-11 02:19 → 3BNU 08-11 16:57
PROVIDERS: ADMIT Pharmacist; ATTEND Family Medicine
PROC: ENDOEBX (2019-08-13 13:00)

== ENCOUNTER 2020-01-03 20:58 | Observation (INO) ==
[2020-01-03] MEDS ORDERED: Aspirin 81 MG TAB.CHEW PO ONE (21:26)
[2020-01-03 21:41] LABS: Basophils % 0.7 %; Eosinophils # 0.1 K/mcL (0.0-0.6); Eosinophils % 2.4 %; Hematocrit 41.4 % (37.5-50.1); Hemoglobin 13.6 g/dL (12.9-16.9); Immature Granulocytes % 0.6 % (0-4); Lymphocytes # 1.2 K/mcL (0.6-4.6); Lymphocytes % 22.3 %; Mean Corpuscular HGB Conc 32.9 g/dL (31.6-35.5); Mean Corpuscular Volume 88.3 fL (83.0-100.0); Mean Platelet Volume 9.2 fL (9.4-12.4); Monocytes # 0.6 K/mcL (0.0-1.3); Monocytes % 11.4 %; Neutrophils # 3.4 K/mcL (1.6-8.9); Platelet Count 211 K/mcL (140-400); Red Blood Count 4.69 M/mcL (4.19-5.50); Red Cell Distribution Width 15.3 % (11.5-14.5); Segmented Neutrophils % 62.6 %; White Blood Count 5.4 K/mcL (4.3-11.1)
[2020-01-03 21:43] LABS: INR 1.1
[2020-01-03 21:51] LABS: Alanine Aminotransferase 10 Units/L (7-52); Albumin/Globulin Ratio 1.6 (1.1-2.2); Alkaline Phosphatase 78 Units/L (34-104); Aspartate Amino Transferase 11 Units/L (13-39); BUN/Creatinine Ratio 19 (6-26); Bilirubin,Total 0.5 mg/dL (0.3-1.0); Blood Urea Nitrogen 18 mg/dL (8-23); Calcium 9.1 mg/dL (8.6-10.3); Carbon Dioxide 25 mEq/L (23-29); Chloride 99 mEq/L (98-107); Globulin 2.5 g/dL (2.4-3.5); Glucose 494 mg/dL (70-105); Osmolality,Calculated 298 (280-300); Potassium 4.3 mEq/L (3.5-5.1); Sodium 132 mEq/L (136-145); Total Protein 6.5 g/dL (6.4-8.9); Troponin I < 0.03 ng/mL (< 0.04); eGFR For African Americans > 60 (> 60); eGFR For Non-African Americans > 60 (> 60)
[2020-01-03] MEDS: Nitroglycerin 0.4 MG TAB.SUBL SL SCH (22:15)
[2020-01-03] MEDS ORDERED: Nitroglycerin 0.4 MG TAB.SUBL SL PRN (22:54)
[2020-01-03] MEDS ORDERED: D5% in Water 1,000 ML IVC PRN (23:05)
[2020-01-03] MEDS ORDERED: Dextrose Gel 15 GM/37.5 ML TUBE PO PRN ×2 (23:05)
[2020-01-03] MEDS ORDERED: *HR* Dextrose 50 % in Water (Vial) 50 ML VIAL IVP PRN (23:05)
[2020-01-04] MEDS ORDERED: Insulin DETEMIR 100 UNIT/ML X5UNITS SQ SCH (00:15)
[2020-01-04] MEDS: Insulin LISPRO 300 UNITS/3 ML VIAL SQ SCH ×5 (00:48→11:49)
[2020-01-04 01:47] LABS: Basophils % 0.4 %; Eosinophils # 0.1 K/mcL (0.0-0.6); Eosinophils % 2.6 %; Hematocrit 38.9 % (37.5-50.1); Immature Granulocytes % 0.4 % (0-4); Lymphocytes # 1.5 K/mcL (0.6-4.6); Lymphocytes % 29.5 %; Mean Corpuscular HGB Conc 33.4 g/dL (31.6-35.5); Mean Corpuscular Hemoglobin 29.5 pg (28.0-33.3); Mean Corpuscular Volume 88.2 fL (83.0-100.0); Mean Platelet Volume 9.2 fL (9.4-12.4); Monocytes # 0.6 K/mcL (0.0-1.3); Monocytes % 11.6 %; Neutrophils # 2.8 K/mcL (1.6-8.9); Platelet Count 207 K/mcL (140-400); Red Blood Count 4.41 M/mcL (4.19-5.50); Red Cell Distribution Width 15.2 % (11.5-14.5); Segmented Neutrophils % 55.5 %
[2020-01-04 02:06] LABS: BUN/Creatinine Ratio 21 (6-26); Blood Urea Nitrogen 17 mg/dL (8-23); Calcium 9.1 mg/dL (8.6-10.3); Carbon Dioxide 24 mEq/L (23-29); Chloride 102 mEq/L (98-107); Glucose 350 mg/dL (70-105); Osmolality,Calculated 294 (280-300); Sodium 134 mEq/L (136-145); Troponin I < 0.03 ng/mL (< 0.04); eGFR For African Americans > 60 (> 60); eGFR For Non-African Americans > 60 (> 60)
[2020-01-04] MEDS: *HR* Ticagrelor 90 MG TABLET PO SCH ×2 (04:30→08:47)
[2020-01-04] MEDS: Nitroglycerin 0.4 MG TAB.SUBL SL SCH (06:52)
[2020-01-04] MEDS ORDERED: Aspirin 81 MG TAB.CHEW PO SCH (10:30)
[2020-01-04 11:31] VITALS: BP 125/79
[2020-01-04] MEDS ORDERED: Isosorbide MONOnitrate (24 HR) 30 MG TAB.ER.24H PO SCH (11:45)
[2020-01-04] MEDS ORDERED: Ranolazine 500 MG TAB.ER.12H PO SCH (21:00)
== END 2020-01-04 14:55 | disposition home or self-care (01) ==
LOC: EMEROOARM 20:58 → 3BNU 20:58 → SUATTDRO 22:43 → 3BNU 23:59
PROVIDERS: ADMIT Internal Medicine; ATTEND Internal Medicine

== ENCOUNTER 2021-07-17 15:52 | Observation (INO) ==
[2021-07-17] MEDS ORDERED: 0.9 % Sodium Chloride 1,000 ML IVC ONE (16:44)
[2021-07-17] MEDS ORDERED: Ondansetron 4 MG/2 ML VIAL IVP ONE (16:44)
[2021-07-17] MEDS ORDERED: Isovue-370 500 ML BOTTLE IVP ONE (16:46)
[2021-07-17 17:09] LABS: Hematocrit 45.7 % (37.5-50.1); Hemoglobin 14.9 g/dL (12.9-16.9); Mean Corpuscular HGB Conc 32.6 g/dL (31.6-35.5); Mean Corpuscular Hemoglobin 28.2 pg (28.0-33.3); Mean Corpuscular Volume 86.6 fL (83.0-100.0); Mean Platelet Volume 8.9 fL (9.4-12.4); Platelet Count 234 K/mcL (140-400); Red Blood Count 5.28 M/mcL (4.19-5.50); Red Cell Distribution Width 17.2 % (11.5-14.5); White Blood Count 7.5 K/mcL (4.3-11.1)
[2021-07-17 17:22] LABS: INR 1.1; Prothrombin Time 12.2 Seconds (9.4-12.1)
[2021-07-17 17:27] LABS: Ethanol < 10 mg/dL (Less than 10)
[2021-07-17 17:28] LABS: Troponin I < 0.03 ng/mL (< 0.04)
[2021-07-17] MEDS ORDERED: Aspirin 325 MG TABLET PO ONE (18:00)
[2021-07-17 18:24] LABS: Bacteria,Urine Few per hpf (None-Few); Bilirubin,Urine Negative (Negative); Blood,Urine Negative (Negative); Clarity,Urine Clear (Clear); Color,Urine Light-Yellow (Yellow); Glucose,Urine (UA) >=1000 mg/dL (Normal); Ketones,Urine Negative (Negative); Leukocyte Esterase,Urine Negative (Negative); Nitrite,Urine Negative (Negative); Protein,Urine Negative (Neg-Trace); RBC,Urine 0-3 per hpf (0-3); Specific Gravity,Urine > 1.030 (1.010-1.025); Squamous Epithelial Cell,Urine Few per hpf (None-Few); Urobilinogen,Urine Normal (Normal)
[2021-07-17 18:25] LABS: Amphetamine Screen,Urine Negative ng/mL (Cutoff=1000); Barbiturate Screen,Urine Negative ng/mL (Cutoff=200); Benzodiazepines Screen,Urine Negative ng/mL (Cutoff=200); Cannabinoid Screen,Urine Negative ng/mL (Cutoff = 50); Cocaine Screen,Urine Negative ng/mL (Cutoff= 300); Opiate Screen,Urine Negative ng/mL (Cutoff=300); Phencyclidine Screen,Urine Negative ng/mL (Cutoff=25)
[2021-07-17 18:56] LABS: Influenza A PCR Negative (Negative); Influenza B PCR Negative (Negative); Resp. Syncytial Virus PCR Negative (Negative)
[2021-07-17 19:05] LABS: SARS-CoV-2 by PCR (In House) Negative (Negative)
[2021-07-17 21:58] LABS: Alanine Aminotransferase 12 Units/L (7-52); Albumin 3.9 g/dL (3.5-5.7); Albumin/Globulin Ratio 1.8 (1.1-2.2); Alkaline Phosphatase 62 Units/L (34-104); Aspartate Amino Transferase 10 Units/L (13-39); BUN/Creatinine Ratio 20 (6-26); Bilirubin,Total 0.4 mg/dL (0.3-1.0); Blood Urea Nitrogen 17 mg/dL (8-23); Calcium 8.6 mg/dL (8.6-10.3); Carbon Dioxide 27 mEq/L (23-29); Chloride 106 mEq/L (98-107); Globulin 2.2 g/dL (2.4-3.5); Glucose 143 mg/dL (70-105); Osmolality,Calculated 290 (280-300); Potassium 4.4 mEq/L (3.5-5.1); Sodium 138 mEq/L (136-145); Total Protein 6.1 g/dL (6.4-8.9); eGFR For African Americans > 60 (> 60); eGFR For Non-African Americans > 60 (> 60)
[2021-07-17] MEDS ORDERED: Perflutren Lipid Microsphere 1.3 ML in 0.9 % Sodium Chloride 8.7 ML IVP PRN (23:05)
[2021-07-17] MEDS ORDERED: Naloxone 0.4 MG/ML INJ IVP PRN (23:17)
[2021-07-17] MEDS ORDERED: Acetaminophen 325 MG TABLET PO PRN (23:17)
[2021-07-17] MEDS ORDERED: Ondansetron 4 MG/2 ML VIAL IVP PRN (23:17)
[2021-07-17] MEDS ORDERED: *HR* Dextrose 50 % in Water (Syg) 50 ML SYRINGE IVP PRN (23:20)
[2021-07-17] MEDS ORDERED: D5% in Water 1,000 ML IVC PRN (23:20)
[2021-07-17] MEDS ORDERED: Dextrose Gel 15 GM/37.5 ML TUBE PO PRN ×2 (23:20)
[2021-07-18 01:07] LABS: Hemoglobin 14.1 g/dL (12.9-16.9); Mean Corpuscular HGB Conc 31.3 g/dL (31.6-35.5); Mean Corpuscular Hemoglobin 27.7 pg (28.0-33.3); Mean Corpuscular Volume 88.4 fL (83.0-100.0); Platelet Count 228 K/mcL (140-400); Red Blood Count 5.09 M/mcL (4.19-5.50); Red Cell Distribution Width 17.3 % (11.5-14.5); White Blood Count 6.5 K/mcL (4.3-11.1)
[2021-07-18 01:09] LABS: Estimated Average Glucose 186 mg/dl; Hemoglobin A1C 8.1 %
[2021-07-18 01:18] LABS: INR 1.1; Prothrombin Time 12.7 Seconds (9.4-12.1)
[2021-07-18 01:21] LABS: Activated Partial Thrombo Time 33.1 Seconds (26.0-36.0)
[2021-07-18 01:27] LABS: BUN/Creatinine Ratio 18 (6-26); Blood Urea Nitrogen 17 mg/dL (8-23); Calcium 8.6 mg/dL (8.6-10.3); Carbon Dioxide 26 mEq/L (23-29); Chloride 108 mEq/L (98-107); Chol/HDL Ratio 4.2 (0-4.9); Cholesterol 108 mg/dL (< 200); Glucose 123 mg/dL (70-105); HDL Cholesterol 26 mg/dL (40-59); LDL Cholesterol,Calculated 66 mg/dL (< 100); Magnesium 2.2 mg/dL (1.6-2.6); Osmolality,Calculated 291 (280-300); Potassium 4.3 mEq/L (3.5-5.1); Sodium 139 mEq/L (136-145); Triglycerides 79 mg/dL (< 150); eGFR For African Americans > 60 (> 60); eGFR For Non-African Americans > 60 (> 60)
[2021-07-18 01:39] LABS: Thyroid Stimulating Hormone 1.138 mcIU/mL (0.340-5.600)
[2021-07-18] MEDS: Famotidine 20 MG/2 ML VIAL IVP SCH ×2 (06:42→18:13)
[2021-07-18] MEDS: Insulin LISPRO 300 UNITS/3 ML VIAL SUBQ SCH ×3 (09:02→17:55)
[2021-07-18] MEDS: Aspirin Enteric Coated 81 MG Tablet PO SCH (09:44)
[2021-07-18] MEDS: Ranolazine 500 MG TAB.ER.12H PO SCH (20:19)
[2021-07-18] MEDS ORDERED: Insulin LISPRO 300 UNITS/3 ML VIAL SUBQ SCH (21:00)
[2021-07-18] MEDS ORDERED: Melatonin 3 MG TABLET PO SCH (21:00)
[2021-07-19 02:51] LABS: Hematocrit 42.1 % (37.5-50.1); Hemoglobin 13.9 g/dL (12.9-16.9); Mean Corpuscular Volume 87.7 fL (83.0-100.0); Mean Platelet Volume 8.9 fL (9.4-12.4); Platelet Count 208 K/mcL (140-400); Red Cell Distribution Width 17.2 % (11.5-14.5); White Blood Count 7.4 K/mcL (4.3-11.1)
[2021-07-19 03:11] LABS: BUN/Creatinine Ratio 22 (6-26); Blood Urea Nitrogen 21 mg/dL (8-23); Calcium 8.8 mg/dL (8.6-10.3); Carbon Dioxide 26 mEq/L (23-29); Chloride 108 mEq/L (98-107); Glucose 98 mg/dL (70-105); Osmolality,Calculated 289 (280-300); Potassium 3.5 mEq/L (3.5-5.1); Sodium 138 mEq/L (136-145); eGFR For African Americans > 60 (> 60); eGFR For Non-African Americans > 60 (> 60)
[2021-07-19] MEDS: Famotidine 20 MG/2 ML VIAL IVP SCH (05:23)
[2021-07-19] MEDS: Aspirin Enteric Coated 81 MG Tablet PO SCH (08:10)
[2021-07-19] MEDS: Insulin LISPRO 300 UNITS/3 ML VIAL SUBQ SCH ×2 (08:11→12:13)
[2021-07-19] MEDS: Ranolazine 500 MG TAB.ER.12H PO SCH (08:11)
[2021-07-19] MEDS ORDERED: Cyanocobalamin (B-12) 1,000 MCG TABLET PO SCH (09:00)
[2021-07-19 10:49] VITALS: BP 124/61; PULSE 50; TEMP 97.6; O2SAT 97
[2021-07-19] MEDS ORDERED: Thiamine (B-1) 100 MG TABLET PO SCH (14:00)
== END 2021-07-19 14:03 | disposition home or self-care (01) ==
LOC: 3BNU 15:52 → EMEROOARM 15:52 → SUATTDRO 20:33 → 3BNU 21:53
PROVIDERS: ADMIT Student in an Organized Health Care Education/Training Program; ATTEND Internal Medicine

== ENCOUNTER 2021-09-27 00:09 | Observation (INO) ==
[2021-09-27 00:43] LABS: Basophils # 0.1 K/mcL (0.0-0.2); Basophils % 0.8 %; Eosinophils # 0.3 K/mcL (0.0-0.6); Eosinophils % 4.9 %; Hematocrit 42.4 % (37.5-50.1); Hemoglobin 14.4 g/dL (12.9-16.9); Immature Granulocytes % 0.3 % (0-4); Lymphocytes # 1.7 K/mcL (0.6-4.6); Lymphocytes % 27.1 %; Mean Corpuscular Hemoglobin 32.1 pg (28.0-33.3); Mean Corpuscular Volume 94.4 fL (83.0-100.0); Mean Platelet Volume 9.2 fL (9.4-12.4); Monocytes # 0.5 K/mcL (0.0-1.3); Monocytes % 8.3 %; Neutrophils # 3.6 K/mcL (1.6-8.9); Platelet Count 255 K/mcL (140-400); Red Blood Count 4.49 M/mcL (4.19-5.50); Red Cell Distribution Width 13.8 % (11.5-14.5); Segmented Neutrophils % 58.6 %; White Blood Count 6.1 K/mcL (4.3-11.1)
[2021-09-27 01:07] LABS: BUN/Creatinine Ratio 16 (6-26); Blood Urea Nitrogen 14 mg/dL (8-23); Calcium 9.2 mg/dL (8.6-10.3); Carbon Dioxide 23 mEq/L (23-29); Chloride 104 mEq/L (98-107); Glucose 185 mg/dL (70-105); Osmolality,Calculated 293 (280-300); Potassium 3.7 mEq/L (3.5-5.1); Sodium 139 mEq/L (136-145); Troponin I < 0.03 ng/mL (< 0.04); eGFR For African Americans > 60 (> 60); eGFR For Non-African Americans > 60 (> 60)
[2021-09-27] MEDS ORDERED: Aspirin 325 MG TABLET PO ONE (02:07)
[2021-09-27] MEDS ORDERED: Morphine Sulfate 2 MG/ML SYRINGE IVP ONE (02:08)
[2021-09-27] MEDS ORDERED: Nitroglycerin 0.4 MG TAB.SUBL SL PRN (02:08)
[2021-09-27] MEDS ORDERED: Morphine Sulfate 2 MG/ML SYRINGE ONE (02:36)
[2021-09-27] MEDS ORDERED: Acetaminophen 325 MG TABLET PO PRN (04:24)
[2021-09-27] MEDS ORDERED: Ondansetron 4 MG/2 ML VIAL IVP PRN (04:24)
[2021-09-27] MEDS ORDERED: Naloxone 0.4 MG/ML INJ IVP PRN (04:24)
[2021-09-27] MEDS ORDERED: Melatonin 3 MG TABLET PO PRN (04:24)
[2021-09-27] MEDS ORDERED: D5% in Water 1,000 ML IVC PRN (04:26)
[2021-09-27] MEDS ORDERED: Dextrose 4 GM Chewable Tablets PO PRN ×2 (04:26)
[2021-09-27] MEDS ORDERED: *HR* Dextrose 50 % in Water (Syg) 50 ML SYRINGE IVP PRN (04:26)
[2021-09-27] MEDS: *HR* Heparin 5,000 UNIT/ML VIAL SQ SCH ×2 (05:31→17:19)
[2021-09-27] MEDS: Insulin LISPRO 300 UNITS/3 ML VIAL SUBQ SCH ×2 (05:31→11:12)
[2021-09-27] MEDS ORDERED: Regadenoson 0.4 MG/5 ML SYRINGE IVP ONE ×2 (08:31→12:41)
[2021-09-27] MEDS: Ranolazine 500 MG TAB.ER.12H PO SCH (20:54)
[2021-09-27 22:49] LABS: Estimated Average Glucose 140 mg/dl; Hemoglobin A1C 6.5 %
[2021-09-28] MEDS: *HR* Heparin 5,000 UNIT/ML VIAL SQ SCH (06:17)
[2021-09-28] MEDS: Ranolazine 500 MG TAB.ER.12H PO SCH (08:49)
[2021-09-28] MEDS ORDERED: Aspirin Enteric Coated 81 MG Tablet PO SCH (09:00)
[2021-09-28] MEDS ORDERED: Isosorbide MONOnitrate (24 HR) 60 MG TAB.ER.24H PO SCH (09:00)
[2021-09-28 10:53] VITALS: PULSE 58; TEMP 98.4; O2SAT 95
[2021-09-28 10:58] VITALS: BP 142/69
[2021-09-28] MEDS ORDERED: Isosorbide MONOnitrate (24 HR) 30 MG TAB.ER.24H PO ONE (11:41)
[2021-09-28] MEDS ORDERED: DilTIAZem CD (24hr) 120 MG CAP.ER.24H PO SCH (11:45)
[2021-09-29] MEDS ORDERED: Isosorbide MONOnitrate (24 HR) 60 MG TAB.ER.24H PO SCH (09:00)
== END 2021-09-28 15:44 | disposition home or self-care (01) ==
LOC: 3BNU 00:09 → EMEROOARM 00:09 → SUATTDRO 03:26 → 3BNU 04:19
PROVIDERS: ADMIT Internal Medicine; ATTEND Registered Nurse

== ENCOUNTER 2022-04-08 08:24 | Observation (INO) ==
[2022-04-08] MEDS ORDERED: Ondansetron 4 MG/2 ML VIAL IVP ONE (08:57)
[2022-04-08] MEDS ORDERED: Morphine Sulfate 2 MG/ML SYRINGE IVP ONE (08:57)
[2022-04-08 09:00] LABS: Basophils # 0.1 K/mcL (0.0-0.2); Basophils % 0.7 %; Eosinophils # 0.2 K/mcL (0.0-0.6); Eosinophils % 3.2 %; Hematocrit 41.4 % (37.5-50.1); Immature Granulocytes % 0.7 % (0-4); Lymphocytes # 1.3 K/mcL (0.6-4.6); Lymphocytes % 18.9 %; Mean Corpuscular HGB Conc 33.8 g/dL (31.6-35.5); Mean Corpuscular Hemoglobin 31.6 pg (28.0-33.3); Mean Corpuscular Volume 93.5 fL (83.0-100.0); Mean Platelet Volume 8.9 fL (9.4-12.4); Monocytes # 0.5 K/mcL (0.0-1.3); Monocytes % 6.5 %; Platelet Count 206 K/mcL (140-400); Red Blood Count 4.43 M/mcL (4.19-5.50); Red Cell Distribution Width 12.6 % (11.5-14.5); White Blood Count 7.1 K/mcL (4.3-11.1)
[2022-04-08 09:21] LABS: BUN/Creatinine Ratio 18 (6-26); Blood Urea Nitrogen 15 mg/dL (8-23); Calcium 9.8 mg/dL (8.6-10.3); Carbon Dioxide 29 mEq/L (23-29); Chloride 102 mEq/L (98-107); Glucose 88 mg/dL (70-105); Osmolality,Calculated 288 (280-300); Potassium 3.6 mEq/L (3.5-5.1); Sodium 139 mEq/L (136-145); Troponin I < 0.03 ng/mL (< 0.04)
[2022-04-08] MEDS ORDERED: Naloxone 0.4 MG/ML INJ IVP PRN (10:45)
[2022-04-08] MEDS ORDERED: Melatonin 3 MG TABLET PO PRN (10:45)
[2022-04-08] MEDS ORDERED: D5% in Water 1,000 ML IVC PRN (10:45)
[2022-04-08] MEDS ORDERED: Acetaminophen 325 MG TABLET PO PRN (10:45)
[2022-04-08] MEDS ORDERED: Dextrose Gel 15 GM/37.5 ML TUBE PO PRN ×2 (10:45)
[2022-04-08] MEDS ORDERED: Ondansetron 4 MG/2 ML VIAL IVP PRN (10:45)
[2022-04-08] MEDS ORDERED: MOM Conc 10 ML UD.LIQ PO PRN (10:45)
[2022-04-08] MEDS ORDERED: *HR* Dextrose 50 % in Water (Syg) 50 ML SYRINGE IVP PRN (10:45)
[2022-04-08] MEDS ORDERED: Mag Hydrox/Al Hydrox/Simeth 30 ML UDC PO PRN (10:45)
[2022-04-08] MEDS: Insulin LISPRO 300 UNITS/3 ML VIAL SUBQ SCH ×2 (12:18→17:04)
[2022-04-08] MEDS: *HR* Heparin 5,000 UNIT/ML VIAL SQ SCH ×2 (14:31→20:43)
[2022-04-08] MEDS ORDERED: Insulin LISPRO 300 UNITS/3 ML VIAL SUBQ SCH (21:00)
[2022-04-09 03:21] LABS: Hematocrit 42.6 % (37.5-50.1); Hemoglobin 14.2 g/dL (12.9-16.9); Mean Corpuscular HGB Conc 33.3 g/dL (31.6-35.5); Mean Corpuscular Hemoglobin 31.3 pg (28.0-33.3); Mean Platelet Volume 9.3 fL (9.4-12.4); Platelet Count 218 K/mcL (140-400); Red Blood Count 4.53 M/mcL (4.19-5.50); Red Cell Distribution Width 12.6 % (11.5-14.5); White Blood Count 6.8 K/mcL (4.3-11.1)
[2022-04-09 03:36] LABS: Calcium 9.3 mg/dL (8.6-10.3); Magnesium 1.8 mg/dL (1.6-2.6); Potassium 3.8 mEq/L (3.5-5.1)
[2022-04-09] MEDS: *HR* Heparin 5,000 UNIT/ML VIAL SQ SCH ×2 (05:41→13:32)
[2022-04-09] MEDS: Insulin LISPRO 300 UNITS/3 ML VIAL SUBQ SCH ×2 (07:35→11:29)
[2022-04-09 12:06] VITALS: BP 117/75; PULSE 59; TEMP 98.5; O2SAT 95
== END 2022-04-09 14:26 | disposition home or self-care (01) ==
LOC: EMEROOARM 08:24 → 3BNU 08:24 → SUATTDRO 10:48 → 3BNU 11:34
PROVIDERS: ADMIT Internal Medicine; ATTEND Registered Nurse